=== PATIENT | female | born 1950 | race Caucasian/White ===

== ENCOUNTER 2016-04-21 09:04 | Emergency (ER) | payer MEDICARE, MEDICAID ==
[~2016-04-21] VITALS: Ht 170.2 cm; Wt 99.8 kg
[2016-04-21] MEDS ORDERED: DOXY100C42 PO (10:14)
[2016-04-21] MEDS ORDERED: BENZ-13 PO (10:14)
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
[2016-04-21 10:21] VITALS: BP 150/100
== END 2016-04-21 10:21 | disposition home or self-care (01) ==
LOC: EDBD → EDUNIT# 09:04 → ER 09:10
DX: J40 Bronchitis, not specified as acute or chronic (principal); R42 Dizziness and giddiness; E11.9 Type 2 diabetes mellitus without complications
CPT/HCPCS: 87804; 99282

== ENCOUNTER 2016-05-24 14:12 | Emergency (ER) | payer MEDICARE, MEDICAID ==
[~2016-05-24] VITALS: Ht 172.7 cm; Wt 107.0 kg
[~2016-05-24 14:12] MED LIST: BENZ-13 PO; DOXY100C42 PO
--- OUTSIDE RECORDS SUMMARY | 2016-05-24 14:18 | XMS REPORT | Continuity of Care Document ---
Author Author [facility] Organization [facility] Address Unknown Phone Unavailable Care Team Providers Care Acquisition Editor Name Role Phone NO, LOCAL PHYSICIAN PCP Unavailable Insurance Providers Payer Name Policy Number Subscriber Name Relationship [employer] [id number] Brenda Duran 18 Self / Same As Patient [facility] [employer] [id number] Brenda Duran 18 Self / Same As Patient Advance Directives Directive Response Recorded Date/Time Advance Directives No 04/21/16 9:14am Resuscitation Status Full Code 04/21/16 9:14am Chief Complaint and Reason for Visit Chief Complaint General Problems/Pain Reason for Visit Bronchitis Problems Active Problems Medical Problem Onset Date Status Bronchitis Unknown Acute Medications Current Home Medications Medication Dose Units Route Directions Days/Qty Instructions Start Date Doxycycline Monohydrate 100 Mg 100 Mg Oral Twice A Day 20 04/21/16 Benzonatate 100 Mg 1-2 Tab Oral Three Times A Day for Cough 30 Social History Social History Problem Response Recorded Date/Time Alcohol Use Denies Use 04/21/2016 9:14am Recreational Drug Use No 04/21/2016 9:14am Recent Foreign Travel No 04/21/2016 9:12am Recent Infectious Disease Exposure No 04/21/2016 9:12am Hospitalization with Isolation Denies 04/21/2016 9:12am Smoking Status Never a Smoker 04/21/2016 9:14am Recent Hopitalizations No 04/21/2016 9:15am Hospitalization with Isolation Denies 04/21/2016 9:12am Query Response Start Date Stop Date Smoking Status Never a Smoker Hospital Discharge Instructions No hospital discharge instructions. Plan of Care Discharge Date 04/21/16 10:21am Disposition 01 HOME, SELF-CARE Condition at Discharge Stable Instructions/Education Provided Acute Bronchitis, Adult (DC) Prescriptions See Medication Section Referrals NO,LOCAL PHYSICIAN - Primary Care Physician RITA GUTIERREZ MD - Additional Instructions/Education GET YOUR PRESCRIPTIONS REFILLED AND TAKE THEM TODAY PRESCRIBED ARLENEITUSSIN DM FOR COUGH TYLENOL AND MOTRIN NEEDED FOR PAIN OR FEVER FOLLOW UP WITH DR. GUTIERREZ IN 2-3 DAYS IF NO BETTER All discharge instructions reviewed with patient and/or family. Voiced understanding. Functional Status No functional status results. Allergies, Adverse Reactions, Alerts Allergen Type Severity Reaction Status Last Updated hydrocortisone ([id number]) Allergy Unknown Active 04/21/16 Immunizations No immunization records. Vital Signs Acute Vital Signs Vital Response Date/Time Temperature (Fahrenheit) 97.6 degrees F (97.6 - 99.5) 04/21/2016 9:12am Temperature (Calculated Celsius) 36.31445 degrees C (36.4 - 37.5) 04/21/2016 9:12am Temperature Source Temporal 04/21/2016 9:12am Pulse Rate (adult) 64 bpm (60 - 90) 04/21/2016 10:21am Respiratory Rate 18 bpm (12 - 24) 04/21/2016 10:21am O2 Sat by Pulse Oximetry 97 % (88 - 100) 04/21/2016 10:21am Blood Pressure 150/100 mm Hg 04/21/2016 10:21am Blood Pressure Mean 114 mm Hg 04/21/2016 9:12am Pain Numeric Pain Scale 0-No Pain 04/21/2016 9:12am Height (Feet) 5 feet 04/21/2016 9:12am Height (Inches) 7 inches 04/21/2016 9:12am Height (Calculated Centimeters) 170.632499 cm 04/21/2016 9:12am Weight (Pounds) 220 pounds 04/21/2016 9:12am Weight (Calculated Kilograms) 99.414534 kilograms 04/21/2016 9:12am Capillary Refill Capillary Refill Less Than 3 Seconds 04/21/2016 9:12am Height 5 ft 7 in Weight 220 lb Body Mass Index 34.5 kg/m^2 Results No known relevant diagnostic tests, laboratory data and/or discharge summary. Procedures No known history of procedures. Encounters Encounter Location Arrival/Admit Date Discharge/Depart Date Attending Provider Departed Emergency Room [facility] 04/21/16 9:10am 04/21 10:21am VALDEMAR NAPIER DO Recent Diagnosis
--- NOTE | 2016-05-24 14:25 | ED Chest Pain ---
General Chief Complaint: Chest Wall/Rib Pain Stated Complaint: LEFT RIB/BREAST PAIN Source: patient, family Exam Limitations: no limitations History of Present Illness Time seen by provider: 14:23 Initial Comments To ER with a three-day history of intermittent left sided chest pain. This is to the lateral aspect of her breast at the anterior axillary line. She states this is very tender to touch. Pain comes about with walking. She denies shortness of breath. She also reports an associated nonproductive cough been present for one month. No fevers, no chills, no unintentional weight loss. Pain is not worsened with movement. Primary care is Dr. Ku in [place]. She is diabetic. Timing/Duration: 2-3 days Severity/Quality: sharp Radiation: no radiation Activities at Onset: none ASA po VARNISH COOKER: No NTG SL VARNISH COOKER: No Associated Symptoms: No back pain, No diaphoresis, No dizziness, edemaNo nausea/vomiting, No shortness of breath, No syncope, No weakness Allergies and Home Medications Allergies Coded Allergies: hydrocortisone (Verified Allergy, Unknown, 04/21/16) Home Medications Benzonatate 100 Mg Capsule #30 1-2 TAB PO TID Prescribed by: VALDEMAR NAPIER on 04/21/16 1014 Doxycycline Monohydrate 100 Mg Capsule #20 100 MG PO BID Prescribed by: VALDEMAR NAPIER on 04/21/16 1014 Review of Systems Constitutional: see HPINo chills, No fever, No weakness EENTM: No Symptoms Reported Respiratory: See HPI CoughDenies Shortness of Air, Denies SOA With Exertion, Denies SOA at Rest Cardiovascular: See HPI Chest Pain EdemaDenies Irregular Heart Rate, Denies Lightheadedness, Denies Palpitations, Denies Syncope Gastrointestinal: No Symptoms ReportedDenies Nausea Genitourinary: No Symptoms Reported Musculoskeletal: no symptoms reported Skin: no symptoms reported Psychiatric/Neurological: No Symptoms Reported Past Mcypsck-Hzitcm-Tvtdyb Hx Patient Social History Recent Foreign Travel: No Contact w/Someone Who Travel: No Recent Hopitalizations: No Surgeries HX Surgeries: Yes (HERNIA REPAIR) Surgeries: Abdominal, Tubal Ligation Respiratory Hx Respiratory Disorders: Yes Respiratory Disorders: Pneumonia, Chronic Bronchitis Cardiovascular Hx Cardiac Disorders: Yes Cardiac Disorders: Hypertension Neurological Hx Neurological Disorders: No 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 Genitourinary Hx Genitourinary Disorders: No Gastrointestinal Hx Gastrointestinal Disorders: No Musculoskeletal Hx Musculoskeletal Disorders: Yes Musculoskeletal Disorders: Chronic Back Pain Endocrine Hx Endocrine Disorders: Yes Endocrine Disorders: Diabetes, Non-Insulin dep HEENT HX ENT Disorders: No Cancer Hx Cancer: No Psychosocial Hx Psychiatric Problems: No Integumentary HX Skin/Integumentary Disorder: No Blood Transfusions Hx Blood Disorders: No Physical Exam Vital Signs Vital Sign - Last 12Hours 05/24/16 14:20 Temp 98.0 Pulse 67 Resp 18 B/P 174/95 Pulse Ox 98 O2 Delivery Room Air Capillary Refill : General Appearance: No Apparent Distress WD/WN Chronically ill Obese HEENT: PERRL/EOMI TMs Normal Other (edentulous) Neck: Full Range of Motion Normal Inspection Respiratory: No Accessory Muscle Use No Respiratory Distress Other (left chest wall is tender at around the anterior axillary line to midaxillary line fourth rib. There is no ecchymosis, crepitus and no rash. Palpation of this area does reproduce her pain.) Cardiovascular: Regular Rate, Rhythm Normal Peripheral Pulses Gastrointestinal: Non Tender Soft Extremity: Normal Capillary Refill Normal Inspection Neurologic/Psychiatric: Alert Oriented x3 Skin: Normal Color Warm/Dry Progress/Results/Core Measures Results/Orders Lab Results Laboratory Tests Test 05/24/16 14:41 Range/Units Activated Partial Thromboplast Time 36 H 24-35 SEC Alanine Aminotransferase (ALT/SGPT) 10 0-55 U/L Albumin 4.3 3.2-4.5 G/DL Alkaline Phosphatase 66 40-136 U/L Anion Gap 12 5-14 MMOL/L Aspartate Amino Transf (AST/SGOT) 14 5-34 U/L B-Type Natriuretic Peptide 21.5 <100.0 PG/ML BUN/Creatinine Ratio 18 Basophils # (Auto) 0.0 0.0-0.1 10^3/uL Basophils (%) (Auto) 0 0-10 % Blood Urea Nitrogen 12 7-18 MG/DL Calcium Level 9.1 8.5-10.1 MG/DL Carbon Dioxide Level 22 21-32 MMOL/L Chloride Level 107 98-107 MMOL/L Creatinine 0.67 0.60-1.30 MG/DL Eosinophils # (Auto) 0.1 0.0-0.3 10^3/uL Eosinophils (%) (Auto) 2 0-10 % Estimat Glomerular Filtration Rate > 60 Glucose Level 135 H 70-105 MG/DL Hematocrit 44 35-52 % Hemoglobin 14.5 11.5-16.0 G/DL INR Comment 1.0 0.8-1.4 Lymphocytes # (Auto) 2.0 1.0-4.0 X 10^3 Lymphocytes (%) (Auto) 29 12-44 % Magnesium Level 2.2 1.8-2.4 MG/DL Mean Corpuscular Hemoglobin 28 25-34 PG Mean Corpuscular Hemoglobin Concent 33 32-36 G/DL Mean Corpuscular Volume 84 80-99 FL Mean Platelet Volume 12.0 H 7.4-10.4 FL Monocytes # (Auto) 0.3 0.0-1.0 X 10^3 Monocytes (%) (Auto) 5 0-12 % Myoglobin 35.2 10.0-92.0 NG/ML Neutrophils # (Auto) 4.5 1.8-7.8 X 10^3 Neutrophils (%) (Auto) 65 42-75 % Platelet Count 173 130-400 10^3/uL Potassium Level 3.5 L 3.6-5.0 MMOL/L Prothrombin Time 12.9 12.2-14.7 SEC Red Blood Count 5.19 4.35-5.85 10^6/uL Red Cell Distribution Width 14.0 10.0-14.5 % Sodium Level 141 135-145 MMOL/L Total Bilirubin 0.6 0.1-1.0 MG/DL Total Protein 7.1 6.4-8.2 G/DL Troponin I < 0.30 <0.30 NG/ML White Blood Count 6.9 4.3-11.0 10^3/uL My Orders Orders-HERMINIO SU APRN Cbc With Automated Diff (05/24/16 14:22) Magnesium (05/24/16 14:22) Chest 1 View, Ap/Pa Only (05/24/16 14:22) Ekg Tracing (05/24/16 14:22) Cardiac Profile 1 (05/24/16 14:22) Comprehensive Metabolic Panel (05/24/16 14:22) Myoglobin Serum (05/24/16 14:22) Protime With Inr (05/24/16 14:22) Partial Thromboplastin Time (05/24/16 14:22) O2 (05/24/16 14:22) Monitor-Rhythm Ecg Trace Only (05/24/16 14:22) Lipid Panel (05/25/16 06:00) Saline Lock/Iv-Start (05/24/16 14:22) BNP (05/24/16 14:46) Vital Signs/I&O Vital Sign - Last 12Hours 05/24/16 05/24/16 14:20 15:00 Temp 98.0 Pulse 67 Resp 18 B/P 174/95 Pulse Ox 98 98 O2 Delivery Room Air Room Air ECG Initial ECG Impression Date: May 24, 2016 Initial ECG Impression Time: 15:55 Initial ECG Intervals RBBB Initial ECG Impression: Normal Departure Communication Progress Notes [id number]-patient does not have any unilateral leg swelling, no shortness of breath, no hypoxia with her oxygen saturation being 98 percent on room air, she is not tachycardic despite no use of rate controlling drugs. I will discharge her to home treating for chest wall pain with cardiology follow-up. Dr. Dolan agrees. I have made an appointment for the patient with Dr. Grayson this 05/26/16 [address] Grayson. Impression Impression: Primary Impression: Chest wall pain Disposition: HOME, SELF-CARE Condition: Stable Departure-Patient Inst. Decision time for Depature: 15:42 Referrals: LASHELL GRAYSON [facility] Patient Instructions: Chest Pain (DC) Add. Discharge Instructions: 1. I have listed the local business systems advisor for you. I have made an appointment for you to see Dr. Grayson this May 26 at 1110 a.m. 2. Return to ER for any recurrent or worsening chest pain. All discharge instructions reviewed with patient and/or family. Voiced understanding. Copy Copies To 1: [facility] HERMINIO SU APRN May 24, 2016 14:25
[2016-05-24 14:57] LABS: BASOPHILS % (AUTO) 0 % (0-10); EOSINOPHILS # (AUTO) 0.1 10^3/uL (0.0-0.3); EOSINOPHILS % (AUTO) 2 % (0-10); LYMPHOCYTES % (AUTO) 29 % (12-44); MEAN CORPUSCULAR HEMOGLOBIN 28 PG (25-34); MEAN CORPUSCULAR HGB CONC 33 G/DL (32-36); MEAN CORPUSCULAR VOLUME 84 FL (80-99); MONOCYTES # (AUTO) 0.3 X 10^3 (0.0-1.0); MONOCYTES % (AUTO) 5 % (0-12); NEUTROPHILS # (AUTO) 4.5 X 10^3 (1.8-7.8); NEUTROPHILS % (AUTO) 65 % (42-75); PLATELET COUNT 173 10^3/uL (130-400); RED BLOOD COUNT 5.19 10^6/uL (4.35-5.85); WHITE BLOOD COUNT 6.9 10^3/uL (4.3-11.0)
[2016-05-24 15:08] LABS: PROTHROMBIN TIME PATIENT 12.9 SEC (12.2-14.7)
--- NOTE | 2016-05-24 15:12 | Diagnostic Imaging Report ---
Portable upright radiograph of the chest. INDICATION: Left breast and rib pain. FINDINGS: The lungs are clear. The heart size is at the upper limits of normal. No effusion or pneumothorax. The mediastinum and storm appear unremarkable. IMPRESSION: No acute process. Dictated by: Dictated on workstation # [id number]
[2016-05-24 15:16] LABS: ALANINE AMINOTRANSFERASE 10 U/L (0-55); ALBUMIN 4.3 G/DL (3.2-4.5); ANION GAP 12 MMOL/L (5-14); ASPARTATE AMINO TRANSFERASE 14 U/L (5-34); BILIRUBIN,TOTAL 0.6 MG/DL (0.1-1.0); BLOOD UREA NITROGEN 12 MG/DL (7-18); BUN/CREATININE RATIO 18; CALCIUM 9.1 MG/DL (8.5-10.1); CARBON DIOXIDE 22 MMOL/L (21-32); CHLORIDE 107 MMOL/L (98-107); CREATININE SERUM 0.67 MG/DL (0.60-1.30); GFR ESTIMATED > 60; GLUCOSE 135 MG/DL (70-105); MAGNESIUM 2.2 MG/DL (1.8-2.4); POTASSIUM 3.5 MMOL/L (3.6-5.0); SODIUM 141 MMOL/L (135-145); TOTAL PROTEIN 7.1 G/DL (6.4-8.2)
[2016-05-24 15:23] LABS: MYOGLOBIN SERUM 35.2 NG/ML (10.0-92.0)
[2016-05-24 16:05] VITALS: BP 168/94
== END 2016-05-24 16:06 | disposition home or self-care (01) ==
LOC: EDUNIT# 14:12 → ER 14:14 → EDBD 14:14 → ER 16:06
DX: R07.89 Other chest pain (principal); I10 Essential (primary) hypertension; E11.9 Type 2 diabetes mellitus without complications
CPT/HCPCS: 36415; 71010; 80053; 83735; 83874; 83880; 84484; 85025; 85610; 85730; 93005; 93041

== ENCOUNTER → 2016-06-08 | Outpatient (CLI) | payer MEDICARE, MEDICAID ==
--- OUTSIDE RECORDS SUMMARY | 2016-06-08 16:24 | XMS REPORT | Continuity of Care Document ---
Author Author [facility] Organization [facility] Address Unknown Phone Unavailable Care Team Providers Care Curriculum Assistant Name Role Phone NO, LOCAL PHYSICIAN PCP Unavailable Insurance Providers Payer Name Policy Number Subscriber Name Relationship [employer] [id number] Brenda Duran 18 Self / Same As Patient [facility] Amerigrp [id number] Brenda Duran 18 Self / Same As Patient Advance Directives Directive Response Recorded Date/Time Advance Directives No 05/24/16 2:25pm Organ Donor No 05/24/16 2:25pm Resuscitation Status Full Code 05/24/16 2:25pm Chief Complaint and Reason for Visit Chief Complaint Chest Wall/Rib Pain Reason for Visit Chest wall pain Problems Active Problems Medical Problem Onset Date Status Bronchitis Unknown Acute Chest wall pain Unknown Acute Medications Current Home Medications Medication Dose Units Route Directions Days/Qty Instructions Start Date Doxycycline Monohydrate 100 Mg 100 Mg Oral Twice A Day 20 04/21/16 Benzonatate 100 Mg 1-2 Tab Oral Three Times A Day for Cough 30 Social History Social History Problem Response Recorded Date/Time Alcohol Use Denies Use 05/24/2016 2:25pm Recreational Drug Use No 05/24/2016 2:25pm Recent Foreign Travel No 05/24/2016 2:20pm Recent Infectious Disease Exposure No 05/24/2016 2:20pm Hospitalization with Isolation Denies 05/24/2016 2:20pm Smoking Status Never a Smoker 05/24/2016 2:25pm Recent Hopitalizations No 05/24/2016 2:25pm Hospitalization with Isolation Denies 05/24/2016 2:20pm Query Response Start Date Stop Date Smoking Status Never a Smoker Hospital Discharge Instructions No hospital discharge instructions. Plan of Care Discharge Date 05/24/16 4:06pm Disposition 01 HOME, SELF-CARE Condition at Discharge Stable Instructions/Education Provided Chest Pain (DC) Prescriptions See Medication Section Referrals LASHELL GRAYSON MD FACP FACC CCDS - Additional Instructions/Education 1. I have listed the local rn telephonic for you. I have made an appointment for you to see Dr. Grayson this May 26 at 1110 a.m. 2. Return to ER for any recurrent or worsening chest pain. All discharge instructions reviewed with patient and/or family. Voiced understanding. Functional Status No functional status results. Allergies, Adverse Reactions, Alerts Allergen Type Severity Reaction Status Last Updated hydrocortisone ([id number]) Allergy Unknown Active 04/21/16 Immunizations No immunization records. Vital Signs Acute Vital Signs Vital Response Date/Time Temperature (Fahrenheit) 98 degrees F (97.6 - 99.5) 05/24/2016 2:20pm Temperature (Calculated Celsius) 36.6696 degrees C (36.4 - 37.5) 05/24/2016 2 :20pm Temperature Source Temporal 05/24/2016 2:20pm Pulse Rate (adult) 65 bpm (60 - 90) 05/24/2016 4:05pm Respiratory Rate 18 bpm (12 - 24) 05/24/2016 4:05pm O2 Sat by Pulse Oximetry 94 % (88 - 100) 05/24/2016 4:05pm Blood Pressure 168/94 mm Hg 05/24/2016 4:05pm Blood Pressure Mean 121 mm Hg 05/24/2016 2:20pm Pain Numeric Pain Scale 4 05/24/2016 2:20pm Height (Feet) 5 feet 05/24/2016 2:20pm Height (Inches) 8 inches 05/24/2016 2:20pm Height (Calculated Centimeters) 172.866204 cm 05/24/2016 2:20pm Weight (Pounds) 236 pounds 05/24/2016 2:20pm Weight (Calculated Kilograms) 107.205402 kilograms 05/24/2016 2:20pm Capillary Refill Capillary Refill Less Than 3 Seconds 05/24/2016 2:20pm Height 5 ft 8 in Weight 236 lb Body Mass Index 35.9 kg/m^2 Results Laboratory Results Test Name Result Units Flags Reference Collection Date/Time Result Date/ Time Comments White Blood Count 6.9 10^3/uL 4.3-11.0 05/24/2016 2:41pm 05/24/2016 3: 00pm Red Blood Count 5.19 10^6/uL 4.35-5.85 05/24/2016 2:41pm 05/24/2016 3: 00pm Hemoglobin 14.5 G/DL 11.5-16.0 05/24/2016 2:41pm 05/24/2016 3:00pm Hematocrit 44 % 35-52 05/24/2016 2:41pm 05/24/2016 3:00pm Mean Corpuscular Volume 84 FL 80-99 05/24/2016 2:41pm 05/24/2016 3: 00pm Mean Corpuscular Hemoglobin 28 PG 25-34 05/24/2016 2:41pm 05/24/2016 3: 00pm Mean Corpuscular Hemoglobin Concent 33 G/DL 32-36 05/24/2016 2:41pm 3:00pm Red Cell Distribution Width 14.0 % 10.0-14.5 05/24/2016 2:41pm 2016 3:00pm Platelet Count 173 10^3/uL 130-400 05/24/2016 2:41pm 05/24/2016 3:00pm Mean Platelet Volume 12.0 FL H 7.4-10.4 05/24/2016 2:41pm 05/24/2016 3: 00pm Neutrophils (%) (Auto) 65 % 42-75 05/24/2016 2:41pm 05/24/2016 3:00pm Lymphocytes (%) (Auto) 29 % 12-44 05/24/2016 2:41pm 05/24/2016 3:00pm Monocytes (%) (Auto) 5 % 0-12 05/24/2016 2:41pm 05/24/2016 3:00pm Eosinophils (%) (Auto) 2 % 0-10 05/24/2016 2:41pm 05/24/2016 3:00pm Basophils (%) (Auto) 0 % 0-10 05/24/2016 2:4105/24/2016 3:00pm Neutrophils # (Auto) 4.5 X 10^3 1.8-7.8 05/24/2016 2:41pm 05/24/2016 3: 00pm Lymphocytes # (Auto) 2.0 X 10^3 1.0-4.0 05/24/2016 2:41pm 05/24/2016 3: 00pm Monocytes # (Auto) 0.3 X 10^3 0.0-1.0 05/24/2016 2:4105/24/2016 3: 00pm Eosinophils # (Auto) 0.1 10^3/uL 0.0-0.3 05/24/2016 2:41pm 05/24/2016 3 :00pm Basophils # (Auto) 0.0 10^3/uL 0.0-0.1 05/24/2016 2:41pm 05/24/2016 3: 00pm Prothrombin Time 12.9 SEC 12.2-14.7 05/24/2016 2:pm 05/24/2016 3: 10pm INR Comment 1.0 0.8-1.4 05/24/2016 2:4105/24/2016 3:10pm INTERPRETIVE DATA SUGGESTED THERAPEUTIC RANGE FOR INR'S: VENOUS THROMBOSIS, PULMONARY EMBOLISM, OR PREVENTION OF SYSTEMIC EMBOLISM (EG. IN ATRIAL FIBRILLATION): 2.0 - 3.0 MECHANICAL PROSTHETIC HEART VALVES: 2.5 - 3.5* *NOTE: INR'S UP TO 4.5 MAY BE NECESSARY IN SELECTED GROUPS OF HIGH RISK PATIENTS. [employer] CONSENSUS CONFERENCE ON ANTITHROMBOTIC THERAPY (2000). Activated Partial Thromboplast Time 36 SEC H 24-35 05/24/2016 2: 3:10pm Sodium Level 141 MMOL/L 135-145 05/24/2016 2:05/24/2016 3:20pm Potassium Level 3.5 MMOL/L L 3.6-5.0 05/24/2016 2:41pm 05/24/2016 3:20pm Chloride Level 107 MMOL/L 98-107 05/24/2016 2:41pm 05/24/2016 3:20pm Carbon Dioxide Level 22 MMOL/L 21-32 05/24/2016 2:41pm 05/24/2016 3: 20pm Anion Gap 12 MMOL/L 5-14 05/24/2016 2:41pm 05/24/2016 3:20pm Blood Urea Nitrogen 12 MG/DL 7-18 05/24/2016 2:4105/24/2016 3:20pm Creatinine 0.67 MG/DL 0.60-1.30 05/24/2016 2:41pm 05/24/2016 3:20pm BUN/Creatinine Ratio 18 05/24/2016 2:41pm 05/24/2016 3:20pm Estimat Glomerular Filtration Rate > 60 05/24/2016 2:2016 3:20pm GFR INTERPRETIVE DATA UNITS FOR ESTIMATED GFR (eGFR): mL/min/1.73 M2 REFERENCE RANGE FOR ESTIMATED GFR (eGFR) eGFR NORMAL eGFR >60 MODERATELY DECREASED eGFR 30-59 SEVERLY DECREASED eGFR 15-29 KIDNEY FAILURE <15 (OR DIALYSIS) Glucose Level 135 MG/DL H 70-105 05/24/2016 2:41pm 05/24/2016 3:20pm Calcium Level 9.1 MG/DL 8.5-10.1 05/24/2016 2:05/24/2016 3:20pm Magnesium Level 2.2 MG/DL 1.8-2.4 05/24/2016 2:05/24/2016 3:20pm Total Bilirubin 0.6 MG/DL 0.1-1.0 05/24/2016 2:05/24/2016 3:20pm Alkaline Phosphatase 66 U/L 40-136 05/24/2016 2:05/24/2016 3:20pm Aspartate Amino Transf (AST/SGOT) 14 U/L 5-34 05/24/2016 2:2016 3:20pm Alanine Aminotransferase (ALT/SGPT) 10 U/L 0-55 05/24/2016 2:05/24 3:20pm Troponin I < 0.30 NG/ML <0.30 05/24/2016 2:05/24/2016 3:24pm Myoglobin 35.2 NG/ML 10.0-92.0 05/24/2016 2:41pm 05/24/2016 3:24pm B-Type Natriuretic Peptide 21.5 PG/ML <100.0 05/24/2016 2:412016 3:39pm Total Protein 7.1 G/DL 6.4-8.2 05/24/2016 2:41pm 05/24/2016 3:20pm Albumin 4.3 G/DL 3.2-4.5 05/24/2016 2:41pm 05/24/2016 3:20pm Procedures Procedure Status Date Provider(s) Tracing only of electrocardiogram Active 05/24/16 HERMINIO SU APRN Encounters Encounter Location Arrival/Admit Date Discharge/Depart Date Attending Provider Departed Emergency Room [facility] 05/24/16 2:14pm 05/24 4:06pm HERMINIO SU APRN Recent Diagnosis
--- NOTE | 2016-06-08 19:10 | Diagnostic Imaging Report ---
INDICATION: Status post fall with left rib pain. AP and oblique views of the left ribs are obtained. FINDINGS: There is no underlying pneumothorax or pleural fluid. IMPRESSION: Negative left ribs. Dictated by: Dictated on workstation # [id number]
== END ==
LOC: RAD 16:20
PROVIDERS: ATTEND Nurse Practitioner Family
DX: R07.81 Pleurodynia (principal)
CPT/HCPCS: 71100

== ENCOUNTER 2016-09-10 22:32 | Emergency (ER) | payer MEDICARE, MEDICAID ==
[~2016-09-10] VITALS: Ht 172.7 cm; Wt 110.7 kg
[2016-09-11 00:03] VITALS: BP 0/0
== END 2016-09-11 00:02 | disposition left against medical advice (07) ==
LOC: EDUNIT# 22:32 → ER 22:35
DX: N64.4 Mastodynia (principal); Z53.21 Procedure and treatment not carried out due to patient leaving prior to being seen by health care provider
CPT/HCPCS: 99281

== ENCOUNTER 2016-10-15 20:01 | Emergency (ER) | payer MEDICARE, MEDICAID ==
[~2016-10-15] VITALS: Ht 172.7 cm; Wt 110.7 kg
[2016-10-15] MEDS ORDERED: IBUP-15 PO (20:13)
[2016-10-15] MEDS ORDERED: LOSA50TA36 PO (20:13)
[2016-10-15] MEDS ORDERED: amLODIPine 5 MG (NORVASC) TAB PO ONE (20:45)
--- NOTE | 2016-10-15 20:46 | ED Chest Pain ---
General Chief Complaint: Chest Wall/Rib Pain Stated Complaint: BILAT ARM PAIN Nursing Triage Note: Patient reports L sided pain, patient reports pain has been present for over a month and came here previously but couldn't stay long Nursing Sepsis Screen: No Definite Risk Source: patient Exam Limitations: no limitations History of Present Illness Time seen by provider: 20:45 Initial Comments Left-sided chest wall pain present for one month. She's had x-rays done. She was told the x-rays were normal. She reports that the left lateral chest wall below the axilla has been swelling off and on for a month. She's never noticed any rash. Very tender to touch. No cough or shortness of breath. No injury. Timing/Duration: 1-3 hours, other (1 month) Severity/Quality: moderate Radiation: no radiation Allergies and Home Medications Allergies Coded Allergies: hydrocortisone (Verified Allergy, Unknown, 04/21/16) ether (Verified Adverse Reaction, Unknown, 09/10/16) Home Medications Ibuprofen 200 Mg Tablet, 800 MG PO, (Reported) Losartan Potassium 50 Mg Tablet, 50 MG PO DAILY, (Reported) Review of Systems Constitutional: see HPI EENTM: No Symptoms Reported Respiratory: No Symptoms Reported Cardiovascular: No Symptoms Reported Gastrointestinal: See HPI Genitourinary: No Symptoms Reported Musculoskeletal: no symptoms reported Skin: no symptoms reported Psychiatric/Neurological: No Symptoms Reported Endocrine: No Symptoms Reported Past Yaepvsc-Xzlobz-Pwfbvt Hx Patient Social History Alcohol Use: Denies Use Recreational Drug Use: No Smoking Status: Current Everyday Smoker Recent Foreign Travel: No Contact w/Someone Who Travel: No Recent Infectious Disease Expo: No Recent Hopitalizations: No Seasonal Allergies Seasonal Allergies: No Surgeries HX Surgeries: Yes (HERNIA REPAIR) Surgeries: Abdominal, Tubal Ligation Respiratory Hx Respiratory Disorders: Yes Respiratory Disorders: Pneumonia, Chronic Bronchitis Cardiovascular Hx Cardiac Disorders: Yes Cardiac Disorders: Hypertension Neurological Hx Neurological Disorders: No 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 System Hx 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 Disorders: 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 Genitourinary Hx Genitourinary Disorders: Yes Genitourinary Disorders: Kidney Infection, UTI-Chronic Gastrointestinal Hx Gastrointestinal Disorders: Yes Gastrointestinal Disorders: Chronic Constipation Musculoskeletal Hx Musculoskeletal Disorders: Yes (FLOATING DISK, OSTEOPOROSIS, BONES DETERIOATING ) Musculoskeletal Disorders: Chronic Back Pain Endocrine Hx Endocrine Disorders: Yes Endocrine Disorders: Diabetes, Non-Insulin dep HEENT HX ENT Disorders: No Cancer Hx Cancer: No Psychosocial Hx Psychiatric Problems: No Integumentary HX Skin/Integumentary Disorder: No Blood Transfusions Hx Blood Disorders: No Family Medical History Family Medial History: Cardiovascular disease 19 FATHER Diabetes mellitus 19 MOTHER G8 BROTHER FH: cancer 19 MOTHER Hypertension 19 MOTHER 19 FATHER G8 BROTHER Physical Exam Vital Signs Vital Sign - Last 12Hours 10/15/16 20:09 Temp 98.5 Pulse 82 Resp 18 B/P (MAP) 215/112 Pulse Ox 94 Capillary Refill : Less Than 3 Seconds General Appearance: No Apparent Distress, WD/WN HEENT: PERRL/EOMI, TMs Normal Neck: Full Range of Motion, Normal Inspection Respiratory: No Accessory Muscle Use, No Respiratory Distress Gastrointestinal: Non Tender, Soft Extremity: Normal Capillary Refill, Normal Inspection Neurologic/Psychiatric: Alert, Oriented x3 Skin: Normal Color, Warm/Dry Progress/Results/Core Measures Results/Orders Lab Results Laboratory Tests Test 10/15/16 20:41 Range/Units White Blood Count 8.4 4.3-11.0 10^3/uL Red Blood Count 5.07 4.35-5.85 10^6/uL Hemoglobin 14.1 11.5-16.0 G/DL Hematocrit 43 35-52 % Mean Corpuscular Volume 86 80-99 FL Mean Corpuscular Hemoglobin 28 25-34 PG Mean Corpuscular Hemoglobin Concent 33 32-36 G/DL Red Cell Distribution Width 14.3 10.0-14.5 % Platelet Count 189 130-400 10^3/uL Mean Platelet Volume 12.1 H 7.4-10.4 FL Neutrophils (%) (Auto) 66 42-75 % Lymphocytes (%) (Auto) 26 12-44 % Monocytes (%) (Auto) 6 0-12 % Eosinophils (%) (Auto) 2 0-10 % Basophils (%) (Auto) 0 0-10 % Neutrophils # (Auto) 5.6 1.8-7.8 X 10^3 Lymphocytes # (Auto) 2.2 1.0-4.0 X 10^3 Monocytes # (Auto) 0.5 0.0-1.0 X 10^3 Eosinophils # (Auto) 0.1 0.0-0.3 10^3/uL Basophils # (Auto) 0.0 0.0-0.1 10^3/uL Sodium Level 142 135-145 MMOL/L Potassium Level 3.8 3.6-5.0 MMOL/L Chloride Level 109 H 98-107 MMOL/L Carbon Dioxide Level 18 L 21-32 MMOL/L Anion Gap 15 H 5-14 MMOL/L Blood Urea Nitrogen 17 7-18 MG/DL Creatinine 0.67 0.60-1.30 MG/DL Estimat Glomerular Filtration Rate > 60 BUN/Creatinine Ratio 25 Glucose Level 116 H 70-105 MG/DL Calcium Level 8.8 8.5-10.1 MG/DL Total Bilirubin 0.5 0.1-1.0 MG/DL Aspartate Amino Transf (AST/SGOT) 16 5-34 U/L Alanine Aminotransferase (ALT/SGPT) 18 0-55 U/L Alkaline Phosphatase 79 40-136 U/L Total Protein 7.3 6.4-8.2 GM/DL Albumin 4.2 3.2-4.5 GM/DL My Orders Orders - 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 Cbc With Automated Diff (10/15/16 20:44) Comprehensive Metabolic Panel (10/15/16 20:44) Ct Chest W (10/15/16 20:44) Saline Lock/Iv-Start (10/15/16 20:44) Amlodipine Tablet (Norvasc Tablet) (10/15/16 20:45) Iohexol Injection (Omnipaque 350 Mg/Ml 1 (10/15/16 22:00) Ns (Ivpb) (Sodium Chloride 0.9% Ivpb Bag (10/15/16 22:00) Ns Iv 500 Ml (Sodium Chloride 0.9%) (10/15/16 22:00) Ketorolac Injection (Toradol Injection) (10/15/16 22:00) Medications Given in ED Current Medications Medications Dose Ordered Sig/Omid Route Start Time Stop Time Status Last Admin Dose Admin Amlodipine Besylate 5 mg ONCE ONCE PO 10/15/16 20:45 10/15/16 20:46 DC 10/15/16 21:09 5 MG Iohexol 100 ml ONCE ONCE IV 10/15/16 22:00 10/15/16 22:01 DC 10/15/16 21:48 75 ML Ketorolac Tromethamine 30 mg ONCE ONCE IVP 10/15/16 22:00 10/15/16 22:01 DC 10/15/16 21:58 30 MG Sodium Chloride 100 ml ONCE ONCE IV 10/15/16 22:00 10/15/16 22:01 DC 10/15/16 21:48 80 ML Vital Signs/I&O Vital Sign - Last 12Hours 10/15/16 20:09 Temp 98.5 Pulse 82 Resp 18 B/P (MAP) 215/112 Pulse Ox 94 Blood Pressure Mean: 146 Diagnostic Imaging Diagonstic Imaging: CT Comments NAME: HENNA LEE [facility] REC#: [id number] PT STATUS: REG ER : 1950 PHYSICIAN: HERMINIO SU APRN ADMIT DATE: 10/15/16/ER Draft Date of Exam:10/15/16 CT CHEST W PROCEDURE: CT chest with contrast only. TECHNIQUE: Multiple contiguous axial images were obtained through the chest after administration of intravenous contrast. INDICATION: Left-sided chest pain. COMPARISON: Rib radiographs from 06/08/2016. FINDINGS: The lungs are clear. Moderate degenerative changes in the thoracic spine. No fractures. No pleural or pericardial effusion. No mediastinal, hilar or axillary lymphadenopathy. The pulmonary arteries and thoracic aorta are unremarkable on this nondedicated exam. Partially visualized postoperative changes of an anterior abdominal wall hernia repair. The visualized upper abdominal contents are otherwise unremarkable. IMPRESSION: No acute CT findings in the chest. Dictated on workstation # [id number] Dict: 10/15/162150 Trans: 10/15/162201 [facility] [id number] Interpreted by: HUSEYIN CERDA MD Electronically signed by: Departure Impression Impression: Primary Impression: Chest wall pain Disposition: 01 HOME, SELF-CARE Condition: Stable Departure-Patient Inst. Decision time for Depature: 22:04 Referrals: RITA GUTIERREZ MD (PCP/Family) Primary Care Physician Patient Instructions: NO INSTRUCTIONS GIVEN Add. Discharge Instructions: 1. Return to ER for concerns 2. A list of local physicians has been provided for you if you would like to establish care locally. All discharge instructions reviewed with patient and/or family. Voiced understanding. HERMINIO SU APRN Oct 15, 2016 20:46
[2016-10-15 20:50] LABS: BASOPHILS % (AUTO) 0 % (0-10); EOSINOPHILS # (AUTO) 0.1 10^3/uL (0.0-0.3); EOSINOPHILS % (AUTO) 2 % (0-10); LYMPHOCYTES # (AUTO) 2.2 X 10^3 (1.0-4.0); LYMPHOCYTES % (AUTO) 26 % (12-44); MEAN CORPUSCULAR HEMOGLOBIN 28 PG (25-34); MEAN CORPUSCULAR HGB CONC 33 G/DL (32-36); MEAN CORPUSCULAR VOLUME 86 FL (80-99); MEAN PLATELET VOLUME 12.1 FL (7.4-10.4); MONOCYTES # (AUTO) 0.5 X 10^3 (0.0-1.0); MONOCYTES % (AUTO) 6 % (0-12); NEUTROPHILS # (AUTO) 5.6 X 10^3 (1.8-7.8); NEUTROPHILS % (AUTO) 66 % (42-75); PLATELET COUNT 189 10^3/uL (130-400); RED BLOOD COUNT 5.07 10^6/uL (4.35-5.85); RED CELL DISTRIBUTION WIDTH 14.3 % (10.0-14.5); WHITE BLOOD COUNT 8.4 10^3/uL (4.3-11.0)
[2016-10-15 21:08] LABS: ALANINE AMINOTRANSFERASE 18 U/L (0-55); ALBUMIN 4.2 GM/DL (3.2-4.5); ANION GAP 15 MMOL/L (5-14); ASPARTATE AMINO TRANSFERASE 16 U/L (5-34); BILIRUBIN,TOTAL 0.5 MG/DL (0.1-1.0); BLOOD UREA NITROGEN 17 MG/DL (7-18); BUN/CREATININE RATIO 25; CALCIUM 8.8 MG/DL (8.5-10.1); CARBON DIOXIDE 18 MMOL/L (21-32); CHLORIDE 109 MMOL/L (98-107); CREATININE SERUM 0.67 MG/DL (0.60-1.30); GFR ESTIMATED > 60; GLUCOSE 116 MG/DL (70-105); POTASSIUM 3.8 MMOL/L (3.6-5.0); SODIUM 142 MMOL/L (135-145); TOTAL PROTEIN 7.3 GM/DL (6.4-8.2)
[2016-10-15] MEDS ORDERED: NS 100 ML (IVPB) BAG IV ONE (22:00)
[2016-10-15] MEDS ORDERED: KETOROLAC 30 MG/ML VIAL IVP ONE (22:00)
[2016-10-15] MEDS ORDERED: IOHEXOL 350 MG/ML 100 ML (OMNIPAQUE 350) VIAL IV ONE (22:00)
[2016-10-15] MEDS ORDERED: NS IV 500 ML 500 ML IV SCH (22:00)
--- NOTE | 2016-10-15 22:02 | Diagnostic Imaging Report ---
PROCEDURE: CT chest with contrast only. TECHNIQUE: Multiple contiguous axial images were obtained through the chest after administration of intravenous contrast. INDICATION: Left-sided chest pain. COMPARISON: Rib radiographs from 06/08/2016. FINDINGS: The lungs are clear. Moderate degenerative changes in the thoracic spine. No fractures. No pleural or pericardial effusion. No mediastinal, hilar or axillary lymphadenopathy. The pulmonary arteries and thoracic aorta are unremarkable on this nondedicated exam. Partially visualized postoperative changes of an anterior abdominal wall hernia repair. The visualized upper abdominal contents are otherwise unremarkable. IMPRESSION: No acute CT findings in the chest. Dictated by: Dictated on workstation # [id number]
[2016-10-15 22:18] VITALS: BP 179/95
== END 2016-10-15 22:18 | disposition home or self-care (01) ==
LOC: EDUNIT# 20:01 → ER 20:04
DX: R07.89 Other chest pain (principal); I10 Essential (primary) hypertension; E11.9 Type 2 diabetes mellitus without complications; J42 Unspecified chronic bronchitis; F17.200 Nicotine dependence, unspecified, uncomplicated; Z82.49 Family history of ischemic heart disease and other diseases of the circulatory system; Z98.51 Tubal ligation status
CPT/HCPCS: 36415; 71260; 80053; 85025; 93005; 96374

== ENCOUNTER 2017-04-25 15:50 | Emergency (ER) | payer MEDICARE, MEDICAID ==
[~2017-04-25] VITALS: Ht 167.6 cm; Wt 113.4 kg
[~2017-04-25 15:50] MED LIST changes: +IBUP-16 PO; +LOSA50TA36 PO
[2017-04-25] MEDS ORDERED: HYDR25CA PO (16:37)
--- NOTE | 2017-04-25 16:37 | ED Integumentary General ---
General Chief Complaint: Skin/Wound Problems Stated Complaint: ITCHY RED BUMPS ON ARMS Source: patient Exam Limitations: no limitations History of Present Illness Date Seen by Provider: Apr 25, 2017 Time Seen by Provider: 16:34 Initial Comments To ER that she red bumps on her arms neck and face. This began 2 days ago after spending 2 nights that her gyfudq-ua-dwj's house sleeping in her alyvqc-ly-baj' s recliner. Patient states that her went over to help clean up his sister's house and noticed there to be Meis, cockroaches and various other insects about the house and states that the carpet smelled like urine. Despite this she stayed overnight 2 nights and then had bumps all over her upon awakening. She is on triamcinolone cream, Medrol Dosepak and denies improvement. She was also given permethrin which she applied states that it burned and then the rash got worse. Timing/Duration: constant Severity: moderate Allergies and Home Medications Allergies Coded Allergies: hydrocortisone (Verified Allergy, Unknown, 04/21/16) ether (Verified Adverse Reaction, Unknown, 09/10/16) Home Medications Ibuprofen 200 Mg Tablet, 800 MG PO, (Reported) Losartan Potassium 50 Mg Tablet, 50 MG PO DAILY, (Reported) Constitutional: see HPI EENTM: see HPI Respiratory: no symptoms reported Cardiovascular: no symptoms reported Genitourinary: no symptoms reported Musculoskeletal: no symptoms reported Skin: see HPI Psychiatric/Neurological: No Symptoms Reported Endocrine: No Symptoms Reported Past Fdedveu-Mcsooe-Vtxixj Hx Patient Social History Recent Hopitalizations: No Seasonal Allergies Seasonal Allergies: No Surgeries History of Surgeries: Yes (HERNIA REPAIR) Surgeries: Abdominal, Tubal Ligation Respiratory History of Respiratory Disorde: Yes Respiratory Disorders: Pneumonia, Chronic Bronchitis Currently Using CPAP: No Currently Using BIPAP: No Cardiovascular History of Cardiac Disorders: Yes Cardiac Disorders: Hypertension Neurological History of Neurological Disord: No 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 System Hx 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 Disorders: 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 Genitourinary Genitourinary Disorders: Kidney Infection, UTI-Chronic Gastrointestinal History of Gastrointestinal Di: Yes Gastrointestinal Disorders: Chronic Constipation Musculoskeletal History of Musculoskeletal Dis: Yes (FLOATING DISK, OSTEOPOROSIS, BONES DETERIOATING ) Musculoskeletal Disorders: Chronic Back Pain Endocrine History of Endocrine Disorders: Yes Endocrine Disorders: Diabetes, Non-Insulin dep HEENT History of HEENT Disorders: No Cancer History of Cancer: No Psychosocial History of Psychiatric Problem: No Integumentary History of Skin or Integumenta: No Blood Transfusions History of Blood Disorders: No Family Medical History Family Medial History: Cardiovascular disease 19 FATHER Diabetes mellitus 19 MOTHER G8 BROTHER FH: cancer 19 MOTHER Hypertension 19 MOTHER 19 FATHER G8 BROTHER Physical Exam Vital Signs Capillary Refill : General Appearance: WD/WN, no apparent distress HEENT: PERRL/EOMI, normal ENT inspection Neck: non-tender, full range of motion Respiratory: no respiratory distress, no accessory muscle use Gastrointestinal: normal bowel sounds, non tender Neurologic/Psychiatric: alert, normal mood/affect, oriented x 3 Skin: rash (diffuse rash to the back of the upper arms, around the hands, on the face and the neck.) Departure Communication (Admissions) Progress Notes I discussed with the patient that I suspect this might be bedbugs but I cannot confirm that. Impression Impression: Primary Impression: Rash Disposition: 01 HOME, SELF-CARE Condition: Stable Departure-Patient Inst. Decision time for Depature: 16:36 Referrals: SELFKALA MD (PCP/Family) Primary Care Physician Patient Instructions: Skin Rash Add. Discharge Instructions: 1. Return to ER for any concerns 2. Continue with current medications 3. All discharge instructions reviewed with patient and/or family. Voiced understanding. Scripts Hydroxyzine Pamoate (Vistaril) 25 Mg Capsule 25 MG PO Q6H Y for ITCHING, #20 CAP Prov: HERMINIO SU APRN 04/25/17 HERMINIO SU APRN Apr 25, 2017 16:37
[2017-04-25 16:45] VITALS: BP 190/95
[2017-04-25] MEDS ORDERED: hydrOXYzine (VISTARIL) 25 MG CAP PO ONE (16:45)
== END 2017-04-25 16:45 | disposition home or self-care (01) ==
LOC: EDUNIT# 15:50 → ER 15:52
DX: R21 Rash and other nonspecific skin eruption (principal); I10 Essential (primary) hypertension; E11.9 Type 2 diabetes mellitus without complications; M81.0 Age-related osteoporosis without current pathological fracture; Z82.49 Family history of ischemic heart disease and other diseases of the circulatory system; Z87.440 Personal history of urinary (tract) infections; Z88.8 Allergy status to other drugs, medicaments and biological substances; Z88.4 Allergy status to anesthetic agent; Z98.51 Tubal ligation status; Z87.19 Personal history of other diseases of the digestive system; Z87.01 Personal history of pneumonia (recurrent)
CPT/HCPCS: 99282

== ENCOUNTER 2017-09-16 14:23 | Emergency (ER) | payer MEDICARE, MEDICAID ==
[~2017-09-16] VITALS: Ht 165.1 cm; Wt 106.6 kg
[~2017-09-16 14:23] MED LIST changes: +HYDR25CA PO
--- OUTSIDE RECORDS SUMMARY | 2017-09-16 14:28 | XMS REPORT ---
Author Author STONEY DIANA Organization [facility] Address [address] [place] [address] Care Team Providers Care City Letter Carrier Name Role Phone STONEY DIANA Unavailable PROBLEMS Type Condition ICD9-CM Code [id number] Code Onset Dates Condition Status SNOMED Code Problem Asthma J45.909 Active 271511556 Problem Prediabetes R73.09 Active 7651071 Problem GERD (gastroesophageal reflux disease) K21.9 Active 013280911 Problem Arthritis M19.90 Active 2296236 ALLERGIES Substance Reaction Event Type Date Status HYDROcodone Bitartrate ER hives Drug Allergy Aug, Active ENCOUNTERS Encounter Location Date Diagnosis [facility] [address] [phone] Aug, Acute middle ear effusion, right H65.191 and Bilateral lower extremity edema R60.0 [facility] [address] [phone] Nov, Conjunctivitis of left eye, unspecified conjunctivitis type H10.9 [facility] [address] [phone] Mar, Arthritis M19.90 ; GERD (gastroesophageal reflux disease) K21.9 ; Prediabetes R73.09 ; Weight gain R63.5 and Asthma J45.909 IMMUNIZATIONS No Known Immunizations SOCIAL HISTORY Never Assessed REASON FOR VISIT right earache for 3 weeks. bilateral lower extremities swollen for a month. [email or web address] PLAN OF CARE Activity Details Follow Up prn Reason: VITAL SIGNS Height 64 in 2016-09-18 Weight 235.0 lbs 2016-09-18 Temperature 97.7 degrees Fahrenheit 2016-09-18 Heart Rate 84 bpm 2016-09-18 Respiratory Rate 22 2016-09-18 BMI 40.33 kg/m2 2016-09-18 Blood pressure systolic 142 mmHg 2016-09-18 Blood pressure diastolic 88 mmHg 2016-09-18 MEDICATIONS Medication Instructions Dosage Frequency Start Date End Date Duration Status Alprazolam 0.5 MG Orally Three times a day 1 tablet 8h Active Lopressor 50 MG Orally Twice a day 1 tablet 12h Active Advair Diskus 250-50 MCG/DOSE Active Hydrochlorothiazide 25 MG Orally Once a day 1 tablet 24h Active Losartan Potassium 100 MG Orally Once a day 1 tablet 24h Active Bactrim DS 800-160 MG Orally Twice a day 1 tablet 12h Active Zyrtec Allergy 10 MG Orally Once a day 1 tablet 24h Aug, Sep, 30 day(s) Active Valtrex 1000 mg Orally 3 times a day 1 tablet 8h Active Lyndon 5-325 MG Orally every 6 hrs 1 tablet as needed 6h Active Albuterol Sulfate (2.5 MG/3ML) 0.083% Inhalation Three times a day 3 ml 8h Active Omeprazole 40 MG Orally Once a day 1 capsule 24h Active Flonase 50 MCG/ACT Nasally Once a day 1 spray in each nostril 24h Aug, 30 day(s) Active RESULTS Name Result Date Reference Range UA LONG DIP (IN HOUSE) 2016-09-18 Lot # [id number] Exp date 2017 06 30 Clarity clear Color yellow Odor strong GLU trace EMILY negative KET negative SG 1.020 BLO negative pH 5.5 Protein 1+ URO 0.2 NIT negative KATELYN negative Lot # [id number] Exp date 2017 04 PROCEDURES Procedure Date Ordered Result Body Site URINALYSIS, AUTO, W/O SCOPE September 18, 2016 [facility] VISIT ESTABLISHED PATIENT September 18, 2016 INSTRUCTIONS MEDICATIONS ADMINISTERED No Known Medications MEDICAL (GENERAL) HISTORY Type Description Date Medical History Essential (primary) hypertension Surgical History tubal ligation Surgical History hernia repair
[2017-09-16] MEDS ORDERED: FLUC200T5 (14:38)
[2017-09-16] MEDS ORDERED: FURO20TA4 (14:38)
[2017-09-16] MEDS ORDERED: IBUP-1780 (14:38)
[2017-09-16] MEDS ORDERED: MECL12.579 (14:38)
--- NOTE | 2017-09-16 15:41 | ED Headache ---
General Chief Complaint: Head/Cervical Problems Stated Complaint: SHARP PAIN IN HEAD Nursing Triage Note: TO ED WITH MALE C/O SHARP PAIN IN BACK OF HEAD TODAY . 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 HAS NOT TAKE ANYTHING OTC FOR PAIN Nursing Sepsis Screen: No Definite Risk Source: patient Exam Limitations: no limitations History of Present Illness Date Seen by Provider: Sep 16, 2017 Time Seen by Provider: 15:12 Initial Comments Here with report of headache that is posterior and quite severe today. She has been getting these for 50+ years but felt like it was a little worse today. She had not taken her blood pressure medicine and she has not taken anything for the pain. She did take her blood pressure medicine at 2 o'clock and seems to be responding son now. Denies nausea or vomiting. Denies weakness. Does have chronic back pain. She follows with Dr. dixon in [place]. Timing/Duration: 1-3 hours Severity/Quality: moderate, severe Location: occipital Prior Headaches/Recent Trauma: frequent headaches Modifying Factors: improves with rest Associated Symptoms: No confusion, No facial pain, No fever/chills, No loss of consciousness, No nausea/vomiting, No sinus infection, No stiff neck, No vision changes Allergies and Home Medications Allergies Coded Allergies: hydrocortisone (Verified Allergy, Unknown, 04/21/16) oxycodone (Verified Allergy, Unknown, 09/16/17) ether (Verified Adverse Reaction, Unknown, 09/10/16) Home Medications Hydroxyzine Pamoate 25 Mg Capsule, 25 MG PO Q6H PRN for ITCHING Prescribed by: HERMINIO SU on 04/25/17 7437 Losartan Potassium 50 Mg Tablet, 50 MG PO DAILY, (Reported) Patient Home Medication List Home Medication List Reviewed: Yes Review of Systems Constitutional: see HPI; No chills, No fever Eyes: Photophobia Ears, Nose, Mouth, Throat: no symptoms reported Respiratory: cough; No dyspnea on exertion, No short of breath, No stridor, No wheezing Cardiovascular: No chest pain, No edema Gastrointestinal: No abdominal pain, No nausea, No vomiting Genitourinary: no symptoms reported Musculoskeletal: no symptoms reported Psychiatric/Neurological: Headache; Denies Numbness, Denies Tingling All Other Systems Reviewed Negative Unless Noted: Yes Past Wabzadq-Cbumkt-Tdwvxq Hx Patient Social History Alcohol Use: Denies Use Recreational Drug Use: No Recent Foreign Travel: No Contact w/Someone Who Travel: No Recent Infectious Disease Expo: No Recent Hopitalizations: No Seasonal Allergies Seasonal Allergies: No Past Medical History Surgeries: Yes (HERNIA REPAIR) Abdominal, Tubal Ligation Respiratory: Yes Pneumonia, Chronic Bronchitis Currently Using CPAP: No Currently Using BIPAP: No Cardiac: Yes Hypertension Neurological: No 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 Disorders: No 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: Menopausal Kidney Infection, UTI-Chronic Gastrointestinal: Yes Chronic Constipation Musculoskeletal: Yes (FLOATING DISK, OSTEOPOROSIS, BONES DETERIOATING ) Chronic Back Pain Endocrine: Yes Diabetes, Non-Insulin dep HEENT: No Cancer: No Psychosocial: No Integumentary: No Blood Disorders: No Family Medical History Reviewed Nursing Family Hx Cardiovascular disease 19 FATHER Diabetes mellitus 19 MOTHER G8 BROTHER FH: cancer 19 MOTHER Hypertension 19 MOTHER 19 FATHER G8 BROTHER Physical Exam Vital Signs Vital Signs - First Documented 09/16/17 14:27 Temp 97.0 Pulse 81 Resp 18 B/P (MAP) 195/106 (135) Capillary Refill : Less Than 3 Seconds General Appearance: WD/WN, no apparent distress Neck: non-tender, full range of motion, supple Cardiovascular: regular rate, rhythm, no murmur Respiratory: lungs clear, normal breath sounds Gastrointestinal: non tender, soft Extremities: non-tender, normal inspection Psychiatric: alert, oriented x 3 Crainal Nerves: normal hearing, normal speech, PERRL Coordination/Gait: normal finger to nose, normal gait Motor/Sensory: no motor deficit, no sensory deficit Skin: normal color, warm/dry Progress/Results/Core Measures Results/Orders Lab Results Laboratory Tests Test 09/16/17 15:46 Range/Units White Blood Count 8.1 4.3-11.0 10^3/uL Red Blood Count 4.90 4.35-5.85 10^6/uL Hemoglobin 14.1 11.5-16.0 G/DL Hematocrit 42 35-52 % Mean Corpuscular Volume 85 80-99 FL Mean Corpuscular Hemoglobin 29 25-34 PG Mean Corpuscular Hemoglobin Concent 34 32-36 G/DL Red Cell Distribution Width 14.4 10.0-14.5 % Platelet Count 180 130-400 10^3/uL Mean Platelet Volume 11.8 H 7.4-10.4 FL Neutrophils (%) (Auto) 75 42-75 % Lymphocytes (%) (Auto) 19 12-44 % Monocytes (%) (Auto) 6 0-12 % Eosinophils (%) (Auto) 0 0-10 % Basophils (%) (Auto) 0 0-10 % Neutrophils # (Auto) 6.1 1.8-7.8 X 10^3 Lymphocytes # (Auto) 1.5 1.0-4.0 X 10^3 Monocytes # (Auto) 0.5 0.0-1.0 X 10^3 Eosinophils # (Auto) 0.0 0.0-0.3 10^3/uL Basophils # (Auto) 0.0 0.0-0.1 10^3/uL Sodium Level 142 135-145 MMOL/L Potassium Level 3.9 3.6-5.0 MMOL/L Chloride Level 105 98-107 MMOL/L Carbon Dioxide Level 27 21-32 MMOL/L Anion Gap 10 5-14 MMOL/L Blood Urea Nitrogen 13 7-18 MG/DL Creatinine 0.79 0.60-1.30 MG/DL Estimat Glomerular Filtration Rate > 60 BUN/Creatinine Ratio 16 Glucose Level 79 70-105 MG/DL Calcium Level 9.2 8.5-10.1 MG/DL Total Bilirubin 0.5 0.1-1.0 MG/DL Aspartate Amino Transf (AST/SGOT) 16 5-34 U/L Alanine Aminotransferase (ALT/SGPT) 14 0-55 U/L Alkaline Phosphatase 61 40-136 U/L Total Protein 7.0 6.4-8.2 GM/DL Albumin 4.2 3.2-4.5 GM/DL My Orders Orders - SHEILA WRIGHT MD Ct Head Wo (09/16/17 15:33) Chest 1 View, Ap/Pa Only (09/16/17 15:33) Cbc With Automated Diff (09/16/17 15:33) Comprehensive Metabolic Panel (09/16/17 15:33) Vital Signs/I&O 09/16/17 14:27 Temp 97.0 Pulse 81 Resp 18 B/P (MAP) 195/106 (135) Blood Pressure Mean: 135 Progress Progress Note : Progress Note Seen and evaluated. We will check CT of the head, chest x-ray and basic labs. Monitor patient. 1628: CT, x-rays and labs are normal. No acute findings. Patient's headache is resolving. Discharged home with return precautions. Patient verbalize understanding instructions and agreement with plan. Diagnostic Imaging Diagonstic Imaging: CT Plain Films/CT/US/NM/MRI: head Comments NAME: HENNA LEE [facility] REC#: [id number] PT STATUS: REG ER : 1950 PHYSICIAN: SHEILA WRIGHT MD ADMIT DATE: 09/16/17/ER Signed Date of Exam: 09/16/17 CT HEAD WO PROCEDURE: CT head without contrast. TECHNIQUE: Multiple contiguous axial images were obtained through the brain without the use of intravenous contrast. INDICATION: Exacerbation of chronic headache, near syncope The ventricles are normal in size, shape and position. There are no masses or hemorrhages. There are no extra-axial fluid collections. Impression: Negative CT head Dictated by: Dictated on workstation # [id number] Dict: 09/16/171610 Trans: 09/16/171611 Interpreted by: SHEILA FUNK MD Electronically signed by: SHEILA FUNK MD 09/16/171611 Diagonstic Imaging: Xray Plain Films/CT/US/NM/MRI: chest Comments NAME: HENNA LEE [facility] REC#: [id number] PT STATUS: REG ER : 1950 PHYSICIAN: SHEILA WRIGHT MD ADMIT DATE: 09/16/17/ER Signed Date of Exam: 09/16/17 CHEST 1 VIEW, AP/PA ONLY Indication: Hypertension, diabetes, headache Heart size and pulmonary vascular normal. Lungs are clear. There are no effusions or pneumothoraces. Impression: Negative chest Dictated by: Dictated on workstation # [id number] Dict: 09/16/17 1615 Trans: 09/16/171615 Interpreted by: SHEILA FUNK MD Electronically signed by: SHEILA FUNK MD 09/16/171615 Departure Impression Primary Impression: Headache Qualified Codes: R51 - Headache Additional Impression: Labile hypertension Disposition: 01 HOME, SELF-CARE Condition: Improved Departure-Patient Inst. Decision time for Depature: 16:40 Referrals: SELF,KALA MD (PCP/Family) Primary Care Physician Patient Instructions: Headache, Adult (DC), High Blood Pressure (DC) Add. Discharge Instructions: All discharge instructions reviewed with patient and/or family. Voiced understanding. Take your prescribed medications as directed. Do not miss doses of your blood pressure medicine as this increases your risk of stroke. Follow-up with your Dr. in a few days for recheck. Return for worsening, fever, vomiting, weakness , breathing problems or other concerns as needed. SHEILA WRIGHT MD Sep 16, 2017 15:41
[2017-09-16 15:57] LABS: BASOPHILS % (AUTO) 0 % (0-10); EOSINOPHILS % (AUTO) 0 % (0-10); HEMATOCRIT 42 % (35-52); HEMOGLOBIN 14.1 G/DL (11.5-16.0); LYMPHOCYTES # (AUTO) 1.5 X 10^3 (1.0-4.0); LYMPHOCYTES % (AUTO) 19 % (12-44); MEAN CORPUSCULAR HEMOGLOBIN 29 PG (25-34); MEAN CORPUSCULAR HGB CONC 34 G/DL (32-36); MEAN CORPUSCULAR VOLUME 85 FL (80-99); MEAN PLATELET VOLUME 11.8 FL (7.4-10.4); MONOCYTES # (AUTO) 0.5 X 10^3 (0.0-1.0); MONOCYTES % (AUTO) 6 % (0-12); NEUTROPHILS # (AUTO) 6.1 X 10^3 (1.8-7.8); NEUTROPHILS % (AUTO) 75 % (42-75); PLATELET COUNT 180 10^3/uL (130-400); RED CELL DISTRIBUTION WIDTH 14.4 % (10.0-14.5); WHITE BLOOD COUNT 8.1 10^3/uL (4.3-11.0)
--- NOTE | 2017-09-16 16:14 | Diagnostic Imaging Report ---
PROCEDURE: CT head without contrast. TECHNIQUE: Multiple contiguous axial images were obtained through the brain without the use of intravenous contrast. INDICATION: Exacerbation of chronic headache, near syncope The ventricles are normal in size, shape and position. There are no masses or hemorrhages. There are no extra-axial fluid collections. Impression: Negative CT head Dictated by: Dictated on workstation # [id number]
[2017-09-16 16:18] LABS: ALANINE AMINOTRANSFERASE 14 U/L (0-55); ALBUMIN 4.2 GM/DL (3.2-4.5); ALKALINE PHOSPHATASE 61 U/L (40-136); BILIRUBIN,TOTAL 0.5 MG/DL (0.1-1.0); BUN/CREATININE RATIO 16; CALCIUM 9.2 MG/DL (8.5-10.1); CARBON DIOXIDE 27 MMOL/L (21-32); CHLORIDE 105 MMOL/L (98-107); CREATININE SERUM 0.79 MG/DL (0.60-1.30); GFR ESTIMATED > 60; GLUCOSE 79 MG/DL (70-105); POTASSIUM 3.9 MMOL/L (3.6-5.0); SODIUM 142 MMOL/L (135-145)
--- NOTE | 2017-09-16 16:18 | Diagnostic Imaging Report ---
Indication: Hypertension, diabetes, headache Heart size and pulmonary vascular normal. Lungs are clear. There are no effusions or pneumothoraces. Impression: Negative chest Dictated by: Dictated on workstation # [id number]
[2017-09-16 16:50] VITALS: BP 150/101
== END 2017-09-16 16:49 | disposition home or self-care (01) ==
LOC: EDUNIT# 14:23 → ER 14:25
DX: R51 Headache (principal); I10 Essential (primary) hypertension; E11.9 Type 2 diabetes mellitus without complications; M81.0 Age-related osteoporosis without current pathological fracture; Z82.49 Family history of ischemic heart disease and other diseases of the circulatory system; Z87.440 Personal history of urinary (tract) infections; Z88.5 Allergy status to narcotic agent; Z88.8 Allergy status to other drugs, medicaments and biological substances; Z87.19 Personal history of other diseases of the digestive system; Z98.51 Tubal ligation status; Z87.01 Personal history of pneumonia (recurrent)
CPT/HCPCS: 36415; 70450; 71045; 80053; 85025

== ENCOUNTER 2017-12-31 13:23 | Emergency (ER) | payer MEDICARE, MEDICAID ==
[~2017-12-31] VITALS: Ht 170.2 cm; Wt 106.1 kg
[~2017-12-31 13:23] MED LIST changes: -BENZ-13 PO; +BENZ100C18 PO; +FLUC200T5; +FURO20TA4; +IBUP-1780; -LOSA50TA36 PO; +LOSA50TA7 PO; +MECL12.579
--- NOTE | 2017-12-31 13:54 | ED General ---
General Stated Complaint: LEAKAGE IN HEART PER HER DRAIDAN ARM SWELLING Source of Information: Patient Exam Limitations: No Limitations History of Present Illness Date Seen by Provider: Dec 31, 2017 Time Seen by Provider: 13:35 Initial Comments Here with concerns about pain to the left chest wall with arm movement and has been going on for a month. Also has concerns because she thinks that her heart is leaking and causing the swelling. She was told by her doctor that she has a leaky heart and she was worried that it's leaking out to this area. It turns out that she had an echocardiogram that showed mild regurgitation of a bowel movement and it was explained to her as a leaky heart or leaky valve and she interpreted this to mean it was leaking out of her heart. This was explained to her further and she was much more comfortable with that. With respect to the left axillary/chest wall muscle pain, patient sleeps in a recliner and uses a seated walker to get around and has to push up often with her arms. She admits that this put strain on her back muscles and that does cause the type of pain that she is having. She reports cough over the last week or more. Does have chronic leg swelling. Was supposed to start a new blood pressure medicine and diuretic but didn't because she was concerned about kidney or liver damage. It was further explained to her about monitoring for kidney function with blood pressure medicines and diuretics and she felt more comfortable with that. She has the medicine available to start and will start those. She does have known hypertension and pedal edema. Timing/Duration: 1 Week, Getting Worse Severity: Moderate Associated Systoms: Cough (mild intermittent); No Fever/Chills, No Nausea/ Vomiting, No Shortness of Air; Weakness (chronic) Allergies and Home Medications Allergies Coded Allergies: hydrocortisone (Verified Allergy, Unknown, 04/21/16) oxycodone (Verified Allergy, Unknown, 09/16/17) ether (Verified Adverse Reaction, Unknown, 09/10/16) Home Medications Hydroxyzine Pamoate 25 Mg Capsule, 25 MG PO Q6H PRN for ITCHING Prescribed by: HERMINIO SU on 04/25/17 2716 Losartan Potassium 50 Mg Tablet, 50 MG PO DAILY, (Reported) Patient Home Medication List Home Medication List Reviewed: Yes Review of Systems Review of Systems Constitutional: see HPI; No chills, No fever EENTM: no symptoms reported Respiratory: No short of breath, No wheezing Cardiovascular: No chest pain; edema; No palpitations Gastrointestinal: No abdominal pain, No nausea, No vomiting Genitourinary: no symptoms reported Musculoskeletal: no symptoms reported All Other Systems Reviewed Negative Unless Noted: Yes Past Opfckat-Btjmrg-Dkygsp Hx Past Med/Social Hx: Reviewed Nursing Past Med/Soc Hx Patient Social History Alcohol Use: Denies Use Recreational Drug Use: No Smoking Status: Never a Smoker Recent Foreign Travel: No Contact w/Someone Who Travel: No Recent Hopitalizations: No Seasonal Allergies Seasonal Allergies: No Past Medical History Surgeries: Yes (HERNIA REPAIR) Abdominal, Tubal Ligation Respiratory: Yes Pneumonia, Chronic Bronchitis Currently Using CPAP: No Currently Using BIPAP: No Cardiac: Yes Hypertension Neurological: No 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: Menopausal Kidney Infection, UTI-Chronic Gastrointestinal: Yes Chronic Constipation Musculoskeletal: Yes (FLOATING DISK, OSTEOPOROSIS, BONES DETERIOATING ) Chronic Back Pain Endocrine: Yes Diabetes, Non-Insulin dep HEENT: No Cancer: No Psychosocial: No Integumentary: No Blood Disorders: No Family Medical History Reviewed Nursing Family Hx Cardiovascular disease 19 FATHER Diabetes mellitus 19 MOTHER G8 BROTHER FH: cancer 19 MOTHER Hypertension 19 MOTHER 19 FATHER G8 BROTHER Physical Exam Vital Signs Vital Signs - First Documented 12/31/17 12/31/17 13:52 14:02 Temp 98.4 Pulse 64 Resp 18 B/P (MAP) 180/102 (128) O2 Delivery Room Air Capillary Refill : Height, Weight, BMI Height: 5'5.00" Weight: 235lbs. oz. 106.155728uq; BMI Method:Stated General Appearance: No Apparent Distress, WD/WN Neck: Non Tender, Supple Respiratory: Lungs Clear, Normal Breath Sounds, Other (tender to the left lateral chest wall along the musculature with reproducible tenderness.) Cardiovascular: Regular Rate, Rhythm, No Murmur Back: Normal Inspection, No CVA Tenderness, No Vertebral Tenderness Extremity: Normal Range of Motion, Pedal Edema (2+ bilateral lower extremities) Neurologic/Psychiatric: Alert, Oriented x3 Skin: Normal Color, Warm/Dry Lymphatic: No Axilla Node Tender (L), No Axilla Node Tender (R) Progress/Results/Core Measures Suspected Sepsis SIRS Temperature: Pulse: Respiratory Rate: Blood Pressure / Mean: Results/Orders My Orders Orders - SHEILA WRIGHT MD Chest Pa/Lat (2 View) (12/31/17 13:46) Vital Signs/I&O 12/31/17 12/31/17 13:52 14:02 Temp 98.4 Pulse 64 Resp 18 B/P (MAP) 180/102 (128) O2 Delivery Room Air Capillary Refill : Progress Note : Progress Note Seen and evaluated. Discussed blood pressure, heart murmur and edema and her current therapies with the patient. Discussed to not sleep in a recliner. She should start medications as her doctor as directed and to follow-up as directed. She reports that she will do both. We will get chest x-ray to evaluate lungs due to cough but otherwise no further evaluation at this time and patient and family agree. She is much more comfortable now understanding what the leaky heart conversation really meant. On exam there is no appreciable murmur noted. Monitor patient. 1425: No acute findings. Discharged home with return precautions. Patient and family verbalize understanding instructions and agreement with plan. Diagnostic Imaging Diagonstic Imaging: Xray Plain Films/CT/US/NM/MRI: chest Comments VIA [facility]. [place], [place] NAME: HENNA LEE [facility] REC#: [id number] PT STATUS: REG ER : 1950 PHYSICIAN: SHEILA WRIGHT MD ADMIT DATE: 12/31/17/ER Draft Date of Exam:12/31/17 CHEST PA/LAT (2 VIEW) EXAM: CHEST PA/LAT (2 VIEW) INDICATION: Cough. COMPARISON: Chest radiographs 09/16/2017. FINDINGS: Normal heart size and pulmonary vascularity. No focal pulmonary opacity, pleural effusion or pneumothorax. No acute osseous findings. IMPRESSION: No acute cardiopulmonary findings. Dictated on workstation # [id number] Dict: 12/31/17 1415 Trans: 12/31/17 1418 [facility] [id number] Interpreted by: HUSEYIN CERDA MD Electronically signed by: Departure Impression Primary Impression: Chest wall pain Additional Impression: Anxiety about health Disposition: 01 HOME, SELF-CARE Condition: Improved Departure-Patient Inst. Decision time for Depature: 14:26 Referrals: KALA PORTILLO MD (PCP/Family) Primary Care Physician Patient Instructions: Anxiety, Adult (DC), Chest Pain That Is Not Caused by the Heart (DC), Cough, Adult (DC) Add. Discharge Instructions: Stop sleeping in a recliner. You should elevate her legs and feet above your heart couple of times a day as this will decrease your swelling. Start taking medications prescribed by your doctor for your blood pressure and leg swelling. Follow up with your Dr. in a few days for recheck as needed. Return for worse pain, fever, vomiting, weakness, breathing problems or other concerns as needed. SHEILA WRIGHT MD Dec 31, 2017 13:54
--- NOTE | 2017-12-31 14:19 | Diagnostic Imaging Report ---
EXAM: CHEST PA/LAT (2 VIEW) INDICATION: Cough. COMPARISON: Chest radiographs 09/16/2017. FINDINGS: Normal heart size and pulmonary vascularity. No focal pulmonary opacity, pleural effusion or pneumothorax. No acute osseous findings. IMPRESSION: No acute cardiopulmonary findings. Dictated by: Dictated on workstation # [id number]
[2017-12-31 14:32] VITALS: BP 169/91
== END 2017-12-31 14:32 | disposition home or self-care (01) ==
LOC: EDUNIT# 13:23 → ER 13:25
DX: R07.89 Other chest pain (principal); F41.9 Anxiety disorder, unspecified; I10 Essential (primary) hypertension; E11.9 Type 2 diabetes mellitus without complications; Z87.440 Personal history of urinary (tract) infections; Z87.448 Personal history of other diseases of urinary system; Z98.51 Tubal ligation status; Z98.890 Other specified postprocedural states; Z88.5 Allergy status to narcotic agent; Z88.8 Allergy status to other drugs, medicaments and biological substances; Z87.01 Personal history of pneumonia (recurrent); Z82.49 Family history of ischemic heart disease and other diseases of the circulatory system
CPT/HCPCS: 71046

== ENCOUNTER 2018-01-11 17:17 | Emergency (ER) | payer MEDICARE, MEDICAID ==
[~2018-01-11] VITALS: Ht 172.7 cm; Wt 106.6 kg
--- NOTE | 2018-01-11 17:55 | ED Fall/Injury ---
General Chief Complaint: Trauma-Non Activation Stated Complaint: FALL ON LEFT SIDE PAIN Source: patient, other Exam Limitations: no limitations (HIREN MUIR) History of Present Illness Date Seen by Provider: Jan 11, 2018 Time Seen by Provider: 17:44 Initial Comments To the patient presents to the ER by private conveyance with her significant other chief complaint of a fall to the floor from her walker against her left side. She did strike the back of her head. She says she was knocked over by her dogs. She did not lose consciousness. She does not have a hematoma or bump on her head. She does historically have a cyst on the top of her head as well as her left wrist. She's having no dysuria, shortness of breath, cough, fevers or chills. She does have some left rib tenderness and her left elbow and upper arm has an abrasion on it and her left knee is tender. She is not on blood thinners or aspirin or Plavix. (HIREN MUIR) Allergies and Home Medications Allergies Coded Allergies: hydrocortisone (Verified Allergy, Unknown, 04/21/16) oxycodone (Verified Allergy, Unknown, 09/16/17) ether (Verified Adverse Reaction, Unknown, 09/10/16) Home Medications Hydroxyzine Pamoate 25 Mg Capsule, 25 MG PO Q6H PRN for ITCHING Prescribed by: HERMINIO SU on 04/25/17 1637 Losartan Potassium 50 Mg Tablet, 50 MG PO DAILY, (Reported) Patient Home Medication List Home Medication List Reviewed: Yes (HIREN MUIR) Review of Systems Review of Systems Constitutional: No chills, No diaphoresis Eyes: Denies Blindness, Denies Blurred Vision Ears, Nose, Mouth, Throat: denies ear pain, denies ear discharge Respiratory: No cough, No short of breath Cardiovascular: No chest pain, No edema Gastrointestinal: No abdominal pain, No constipation, No diarrhea Genitourinary: No discharge, No dysuria (HIREN MUIR) Past Edxvvcf-Lepsdi-Msltss Hx Patient Social History Alcohol Use: Denies Use Recreational Drug Use: No Smoking Status: Never a Smoker 2nd Hand Smoke Exposure: Yes Recent Foreign Travel: No Contact w/Someone Who Travel: No Recent Hopitalizations: No Physical Abuse: No Sexual Abuse: No Mistreated: No Fear: No (HIREN MUIR) Seasonal Allergies Seasonal Allergies: No (HIREN MUIR) Past Medical History Surgeries: Yes (HERNIA REPAIR) Abdominal, Tubal Ligation Respiratory: Yes Pneumonia, Chronic Bronchitis Currently Using CPAP: No Currently Using BIPAP: No Cardiac: Yes Hypertension Neurological: No 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: Menopausal Kidney Infection, UTI-Chronic Gastrointestinal: Yes Chronic Constipation Musculoskeletal: Yes (FLOATING DISK, OSTEOPOROSIS, BONES DETERIOATING ) Chronic Back Pain Endocrine: Yes Diabetes, Non-Insulin dep HEENT: No Cancer: No Psychosocial: No Integumentary: No Blood Disorders: No (HIREN MUIR) Family Medical History Cardiovascular disease 19 FATHER Diabetes mellitus 19 MOTHER G8 BROTHER FH: cancer 19 MOTHER Hypertension 19 MOTHER 19 FATHER G8 BROTHER Physical Exam Vital Signs Vital Signs - First Documented 01/11/18 17:55 Temp 97.7 Pulse 78 Resp 20 B/P (MAP) 174/114 (134) Pulse Ox 97 (HERMINIO SU APRN) Vital Signs Capillary Refill : (HIREN MUIR) Height, Weight, BMI Height: 5'7.00" Weight: 234lbs. oz. 106.713784ey; BMI Method:Stated General Appearance: WD/WN, no apparent distress HEENT: PERRL/EOMI, normal ENT inspection, TMs normal, pharynx normal, other ( Cyst on the top of her head which appears chronic. There is no hematoma, abrasion, hemotympanum, chaudhry sign or raccoon eyes.) Neck: non-tender, full range of motion, supple, normal inspection Cardiovascular: normal peripheral pulses, regular rate, rhythm Respiratory: chest non-tender, lungs clear, normal breath sounds, no respiratory distress, no accessory muscle use Peripheral Pulses: 2+ Dorsalis Pedis (R), 2+ Left Dors-Pedis (L), 2+ Radial Pulses (R), 2+ Radial Pulses (L) Gastrointestinal: normal bowel sounds, non tender, soft Extremities: normal range of motion (bilateral upper extremities), non-tender, normal capillary refill, other (minor abrasion on the left upper arm and elbow without ecchymosis. There is tenderness to palpation of the left knee. Bilateral hips are nontender to palpation.) Neurologic/Psychiatric: rn labor delivery II-XII nml as tested, no motor/sensory deficits, alert, normal mood/affect, oriented x 3 Skin: other (minor abrasions left upper extremity) (HIREN MUIR) Pallavi Coma Score Best Eye Response: (4) Open Spontaneously Best Verbal Response: (5) Oriented Best Motor Response: (6) Obeys Commands Pallavi Total: 15 (HIREN MUIR) Progress/Results/Core Measures Results/Orders Vital Signs/I&O 01/11/18 17:55 Temp 97.7 Pulse 78 Resp 20 B/P (MAP) 174/114 (134) Pulse Ox 97 (HERMINIO SU APRN) Progress Progress Note : Time: 17:[address] of the head and C-spine as well as x-ray of the left knee and left ribs. Transfer care to [facility]. (HIREN MUIR) Diagnostic Imaging Diagonstic Imaging: CT (C/O contrast) Plain Films/CT/US/NM/MRI: c-spine, head Reviewed: Reviewed by Me Diagonstic Imaging: Xray Plain Films/CT/US/NM/MRI: chest (left ribs) Reviewed: Reviewed by Me Diagonstic Imaging: Xray Plain Films/CT/US/NM/MRI: knee (Left) Reviewed: Reviewed by Me (HIREN MUIR) Departure Impression Primary Impression: Fall Qualified Codes: W19.XXXA - Unspecified fall, initial encounter Additional Impression: Abrasion Disposition: 01 HOME, SELF-CARE Condition: Stable Departure-Patient Inst. Decision time for Depature: 18:45 (HERMINIO SU APRN) Referrals: KALA PORTILLO MD (PCP/Family) Primary Care Physician Patient Instructions: Contusion (DC), Preventing Falls in the Older Adult Add. Discharge Instructions: All discharge instructions reviewed with patient and/or family. Voiced understanding. HIREN MUIR Jan 11, 2018 17:55 HERMINIO SU APRN Jan 11, 2018 18:45
--- NOTE | 2018-01-11 18:34 | Diagnostic Imaging Report ---
CLINICAL INDICATION: Patient had a fall today and hit posterior aspect of head. Exam: Head CT without IV contrast. Axial CT scan of the cervical spine with sagittal and coronal reformations. Comparison: Head CT without contrast dated 09/16/2017. Findings: Head CT: There is no evidence of acute cerebral infarct, intracranial hemorrhage, or gross mass effect. The brain parenchymal volume appears appropriate for patient's age. Stable patchy areas of low-attenuation white matter changes throughout both cerebral hemispheres, likely representing chronic small vessel ischemic disease. There is normal flores-white matter distinction. There is no significant midline shift or herniation. There is no evidence of hydrocephalus. The basal cisterns are unremarkable. There is a small area of extracranial soft tissue swelling involving the right lateral aspect of the head. There is no skull fracture. Otherwise, the skull, extracranial soft tissue, and orbits are unremarkable. The paranasal sinuses are unremarkable. Temporal bones show no significant abnormality. Cervical spine: There is no acute cervical spine fracture. There is grade 1 anterolisthesis of C3 on C4 with no pars defect seen and is likely degenerative. There are cervical spine degenerative disease with vertebral body spurs and facet arthropathy. There is note of incomplete bony structures involving the right posterior aspect of the C1 arch. This may be postoperative or congenital. There is mild bilateral apical pleural-parenchymal thickening/sclerosis involving the lung apices. Neck soft tissue structures show no significant abnormality. Impression: 1: Stable CT scan of brain with no evidence of acute intracranial process. There is no skull fracture. 2: Cervical spine degenerative disease with no acute fracture. There is grade 1 anterolisthesis C3 on C4 which is degenerative. Dictated by: Dictated on workstation # [id number]
--- NOTE | 2018-01-11 18:38 | Diagnostic Imaging Report ---
Clinical indication: Patient is status post fall today and hit left side. Patient complains of left lateral rib pain. Exam: X-ray of the left ribs, 3 views. Comparison: Chest x-ray dated 12/31/2017. Findings: Of note, portions of the left ribs are obscured by overlapping anatomical shadows. There is no evidence of fracture of the left ribs. There is hypertrophic spurs seen throughout the visualized portion of the thoracic and lumbar spine. Visualized portion of the chest shows no significant abnormality. Impression: There are no left rib fractures seen. Dictated by: Dictated on workstation # [id number]
--- NOTE | 2018-01-11 18:39 | Diagnostic Imaging Report ---
INDICATION: Fall, left knee pain. FINDINGS: Three views of the left knee show no fracture, dislocation or other acute bony abnormality. There are tricompartmental degenerative changes. Narrowing is most pronounced medially. No effusion is evident. IMPRESSION: There are degenerative changes present with no acute abnormality seen. Dictated by: Dictated on workstation # [id number]
[2018-01-11 18:53] VITALS: BP 165/100
== END 2018-01-11 18:53 | disposition home or self-care (01) ==
LOC: EDUNIT# 17:17 → ER 17:18
DX: S00.81XA Abrasion of other part of head, initial encounter (principal); I10 Essential (primary) hypertension; E11.9 Type 2 diabetes mellitus without complications; M81.0 Age-related osteoporosis without current pathological fracture; R40.2142 Coma scale, eyes open, spontaneous, at arrival to emergency department; R40.2252 Coma scale, best verbal response, oriented, at arrival to emergency department; R40.2362 Coma scale, best motor response, obeys commands, at arrival to emergency department; Z87.440 Personal history of urinary (tract) infections; Z88.8 Allergy status to other drugs, medicaments and biological substances; Z82.49 Family history of ischemic heart disease and other diseases of the circulatory system; Z88.5 Allergy status to narcotic agent; Z77.22 Contact with and (suspected) exposure to environmental tobacco smoke (acute) (chronic); Z98.51 Tubal ligation status; Z87.19 Personal history of other diseases of the digestive system; Z87.01 Personal history of pneumonia (recurrent); W01.198A Fall on same level from slipping, tripping and stumbling with subsequent striking against other object, initial encounter
CPT/HCPCS: 70450; 71100; 72125; 73562

== ENCOUNTER 2018-06-19 13:36 | Emergency (ER) | payer MEDICARE, MEDICAID ==
[~2018-06-19] VITALS: Ht 167.6 cm; Wt 109.8 kg
[~2018-06-19 13:36] MED LIST changes: +LOSA50TA63 PO; -LOSA50TA7 PO
[2018-06-19 14:29] LABS: BILIRUBIN,URINE NEGATIVE (NEGATIVE); CLARITY,URINE SLIGHTLY CLOUDY; COLOR,URINE YELLOW; GLUCOSE, URINE (UA) NEGATIVE (NEGATIVE); KETONES,URINE NEGATIVE (NEGATIVE); LEUKOCYTE ESTERASE ,URINE 1+ (NEGATIVE); NITRITE,URINE NEGATIVE (NEGATIVE); PH,URINE 5 (5-9); PROTEIN,URINE 2+ (NEGATIVE); UROBILINOGEN,URINE NORMAL (NORMAL)
[2018-06-19 14:29] LABS: BASOPHILS % (AUTO) 0 % (0-10); EOSINOPHILS # (AUTO) 0.1 10^3/uL (0.0-0.3); EOSINOPHILS % (AUTO) 1 % (0-10); HEMATOCRIT 44 % (35-52); HEMOGLOBIN 14.4 G/DL (11.5-16.0); LYMPHOCYTES # (AUTO) 1.6 X 10^3 (1.0-4.0); LYMPHOCYTES % (AUTO) 23 % (12-44); MEAN CORPUSCULAR HEMOGLOBIN 29 PG (25-34); MEAN CORPUSCULAR HGB CONC 33 G/DL (32-36); MEAN CORPUSCULAR VOLUME 86 FL (80-99); MEAN PLATELET VOLUME 11.7 FL (7.4-10.4); MONOCYTES # (AUTO) 0.4 X 10^3 (0.0-1.0); MONOCYTES % (AUTO) 6 % (0-12); NEUTROPHILS % (AUTO) 70 % (42-75); PLATELET COUNT 166 10^3/uL (130-400); RED CELL DISTRIBUTION WIDTH 14.4 % (10.0-14.5); WHITE BLOOD COUNT 7.2 10^3/uL (4.3-11.0)
[2018-06-19 14:36] LABS: BACTERIA,URINE TRACE /HPF; WBC,URINE 0-2 /HPF
[2018-06-19 14:46] LABS: ALANINE AMINOTRANSFERASE 20 U/L (0-55); ALBUMIN 4.4 GM/DL (3.2-4.5); ALKALINE PHOSPHATASE 72 U/L (40-136); AMYLASE 38 U/L (25-125); BILIRUBIN,TOTAL 0.6 MG/DL (0.1-1.0); BUN/CREATININE RATIO 19; CALCIUM 9.2 MG/DL (8.5-10.1); CARBON DIOXIDE 27 MMOL/L (21-32); CHLORIDE 103 MMOL/L (98-107); CREATININE SERUM 0.72 MG/DL (0.60-1.30); GFR ESTIMATED > 60; GLUCOSE 103 MG/DL (70-105); LIPASE 34 U/L (8-78); POTASSIUM 3.7 MMOL/L (3.6-5.0); SODIUM 139 MMOL/L (135-145); TOTAL PROTEIN 7.4 GM/DL (6.4-8.2)
--- NOTE | 2018-06-19 15:06 | ED Abdominal Pain ---
General Chief Complaint: General Problems/Pain Stated Complaint: PAIN IN LOWER BACK, NEEDS APPENDIX CHECKED Nursing Triage Note: PATIENT STATES THAT SHE HAS BEEN HAVING PAIN IN HER RIGHT SIDE AND AROUND TO HER LOWER RIGHT BACK FOR 4 DAYS. THE PAIN IS INTERMITTENT. SHE STATES THAT SHE RECENTLY WAS DIAGNOSED WITH PNEUMONIA AND WAS PRESCRIBED MEDICATION FOR THIS. PAIN STARTED AFTER SHE BEGAN THE MEDICINE. Sepsis Screen: No Definite Risk Source of Information: Patient Exam Limitations: No Limitations History of Present Illness Date Seen by Provider: Jun 19, 2018 Time Seen by Provider: 14:08 Initial Comments 68-year-old female who presents to the emergency room with complaints of right flank pain and urinary frequency for the past 4 days. She was seen at [facility] and was told to come to the emergency room for further evaluation. She has just finished her treatment for pneumonia earlier last week. Timing/Duration: 4-5 Days Location: Flank (right) Radiation: No Radiation Associated Symptoms: Denies Symptoms Allergies and Home Medications Allergies Coded Allergies: hydrocortisone (Verified Allergy, Unknown, 04/21/16) oxycodone (Verified Allergy, Unknown, 09/16/17) ether (Verified Adverse Reaction, Unknown, 09/10/16) Home Medications Hydroxyzine Pamoate 25 Mg Capsule, 25 MG PO Q6H PRN for ITCHING Prescribed by: HERMINIO SU on 04/25/17 1637 Losartan Potassium 50 Mg Tablet, 50 MG PO DAILY, (Reported) Patient Home Medication List Home Medication List Reviewed: Yes Review of Systems Review of Systems Constitutional: see HPI; No chills, No fever Genitourinary: See HPI, Burning, Frequency, Flank Pain All Other Systems Reviewed Negative Unless Noted: Yes Past Iqeisew-Jdwjpi-Mtjklh Hx Past Med/Social Hx: Reviewed Nursing Past Med/Soc Hx Patient Social History Alcohol Use: Denies Use Recreational Drug Use: No Smoking Status: Never a Smoker 2nd Hand Smoke Exposure: Yes Recent Foreign Travel: No Contact w/Someone Who Travel: No Recent Infectious Disease Expo: No Recent Hopitalizations: No Seasonal Allergies Seasonal Allergies: No Past Medical History Surgeries: Yes (HERNIA REPAIR) Abdominal, Tubal Ligation Respiratory: Yes Pneumonia, Chronic Bronchitis Currently Using CPAP: No Currently Using BIPAP: No Cardiac: Yes Hypertension Neurological: Yes Multiple Sclerosis 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 Infection, UTI-Chronic Gastrointestinal: Yes Chronic Constipation Musculoskeletal: Yes (FLOATING DISK, OSTEOPOROSIS, BONES DETERIOATING ) Arthritis, Chronic Back Pain Endocrine: Yes Diabetes, Non-Insulin dep HEENT: No Cancer: No Psychosocial: No Integumentary: No Blood Disorders: No Family Medical History Reviewed Nursing Family Hx Cardiovascular disease 19 FATHER Diabetes mellitus 19 MOTHER G8 BROTHER FH: cancer 19 MOTHER Hypertension 19 MOTHER 19 FATHER G8 BROTHER Physical Exam Vital Signs Vital Signs - First Documented 06/19/18 06/19/18 13:44 15:13 Temp 97.8 Pulse 74 Resp 18 B/P (MAP) 188/91 (123) Pulse Ox 98 O2 Delivery Room Air Capillary Refill : Less Than 3 Seconds Height/Weight/BMI Height: 5'6.00" Weight: 242lbs. 0oz. [id number]; BMI Method:Stated General Appearance: WD/WN, no apparent distress Respiratory: chest non-tender, lungs clear, normal breath sounds, no respiratory distress, no accessory muscle use Cardiovascular: normal peripheral pulses, regular rate, rhythm, no edema, no gallop, no JVD, no murmur Gastrointestinal: normal bowel sounds, non tender, soft, no organomegaly, no pulsatile mass Extremities: normal capillary refill Back: normal inspection, no CVA tenderness, no vertebral tenderness Neurologic/Psychiatric: alert, normal mood/affect, oriented x 3 Skin: normal color, warm/dry Progress/Results/Core Measures Results/Orders Lab Results Laboratory Tests Test 06/19/18 14:15 06/19/18 14:20 Range/Units Urine Color YELLOW Urine Clarity SLIGHTLY CLOUDY Urine pH 5 5-9 Urine Specific [place] 1.020 1.016-1.022 Urine Protein 2+ H NEGATIVE Urine Glucose (UA) NEGATIVE NEGATIVE Urine Ketones NEGATIVE NEGATIVE Urine Nitrite NEGATIVE NEGATIVE Urine Bilirubin NEGATIVE NEGATIVE Urine Urobilinogen NORMAL NORMAL MG/DL Urine Leukocyte Esterase 1+ H NEGATIVE Urine RBC (Auto) NEGATIVE NEGATIVE Urine RBC NONE /HPF Urine WBC 0-2 /HPF Urine Squamous Epithelial Cells 5-10 /HPF Urine Crystals NONE /LPF Urine Bacteria TRACE /HPF Urine Casts NONE /LPF Urine Mucus SMALL H /LPF Urine Culture Indicated NO White Blood Count 7.2 4.3-11.0 10^3/uL Red Blood Count 5.06 4.35-5.85 10^6/uL Hemoglobin 14.4 11.5-16.0 G/DL Hematocrit 44 35-52 % Mean Corpuscular Volume 86 80-99 FL Mean Corpuscular Hemoglobin 29 25-34 PG Mean Corpuscular Hemoglobin Concent 33 32-36 G/DL Red Cell Distribution Width 14.4 10.0-14.5 % Platelet Count 166 130-400 10^3/uL Mean Platelet Volume 11.7 H 7.4-10.4 FL Neutrophils (%) (Auto) 70 42-75 % Lymphocytes (%) (Auto) 23 12-44 % Monocytes (%) (Auto) 6 0-12 % Eosinophils (%) (Auto) 1 0-10 % Basophils (%) (Auto) 0 0-10 % Neutrophils # (Auto) 5.0 1.8-7.8 X 10^3 Lymphocytes # (Auto) 1.6 1.0-4.0 X 10^3 Monocytes # (Auto) 0.4 0.0-1.0 X 10^3 Eosinophils # (Auto) 0.1 0.0-0.3 10^3/uL Basophils # (Auto) 0.0 0.0-0.1 10^3/uL Sodium Level 139 135-145 MMOL/L Potassium Level 3.7 3.6-5.0 MMOL/L Chloride Level 103 98-107 MMOL/L Carbon Dioxide Level 27 21-32 MMOL/L Anion Gap 9 5-14 MMOL/L Blood Urea Nitrogen 14 7-18 MG/DL Creatinine 0.72 0.60-1.30 MG/DL Estimat Glomerular Filtration Rate > 60 BUN/Creatinine Ratio 19 Glucose Level 103 70-105 MG/DL Calcium Level 9.2 8.5-10.1 MG/DL Corrected Calcium 8.9 8.5-10.1 MG/DL Total Bilirubin 0.6 0.1-1.0 MG/DL Aspartate Amino Transf (AST/SGOT) 18 5-34 U/L Alanine Aminotransferase (ALT/SGPT) 20 0-55 U/L Alkaline Phosphatase 72 40-136 U/L Total Protein 7.4 6.4-8.2 GM/DL Albumin 4.4 3.2-4.5 GM/DL Amylase Level 38 25-125 U/L Lipase 34 8-78 U/L My Orders Alysa - MYKEL LEMUS Comprehensive Metabolic Panel (06/19/18 13:46) Lipase (06/19/18 13:46) Amylase (3/25/19 13:46) Ua Culture If Indicated (06/19/18 13:46) Saline Lock/Iv-Start (06/19/18 13:46) Cbc With Automated Diff (06/19/18 13:46) Vital Signs/I&O 06/19/18 06/19/18 13:44 15:13 Temp 97.8 97.8 Pulse 74 74 Resp 18 18 B/P (MAP) 188/91 (123) 180/88 (118) Pulse Ox 98 98 O2 Delivery Room Air Blood Pressure Mean: 123 Progress Progress Note : Time: 15:04 Progress Note I have seen and evaluated the patient. I've informed her of her laboratory findings. Given her relatively normal laboratory findings and reports that her pain is gone at this time she was given the option of a CT and declines a CT of her abdomen and pelvis to further evaluate her pain and wishes to go home.. She agrees with plan of care, plans for discharge, return precautions were given. Departure Impression Primary Impression: Right lower quadrant abdominal pain Disposition: HOME, SELF-CARE Condition: Stable/Unchanged Departure-Patient Inst. Decision time for Depature: 15:06 Referrals: KALA PORTILLO MD (PCP/Family) Primary Care Physician Patient Instructions: Acute Abdomen (Belly Pain) Add. Discharge Instructions: You may use ibuprofen and Tylenol as directed by the bottle for pain relief. Follow-up with your primary care provider within 1 week for recheck. Return back to the emergency room for worsening symptoms or any concerns as needed. All discharge instructions reviewed with patient and/or family. Voiced understanding. MYKEL LEMUS Jun 19, 2018 15:06
[2018-06-19 15:13] VITALS: BP 180/88
== END 2018-06-19 15:13 | disposition home or self-care (01) ==
LOC: EDUNIT# 13:36 → ER 13:39
DX: R10.31 Right lower quadrant pain (principal); I10 Essential (primary) hypertension; G35 Multiple sclerosis; E11.9 Type 2 diabetes mellitus without complications; M81.0 Age-related osteoporosis without current pathological fracture; Z82.49 Family history of ischemic heart disease and other diseases of the circulatory system; Z87.440 Personal history of urinary (tract) infections; Z87.19 Personal history of other diseases of the digestive system; Z88.5 Allergy status to narcotic agent; Z88.8 Allergy status to other drugs, medicaments and biological substances; Z87.09 Personal history of other diseases of the respiratory system; Z87.01 Personal history of pneumonia (recurrent); Z77.22 Contact with and (suspected) exposure to environmental tobacco smoke (acute) (chronic); Z98.51 Tubal ligation status; Z98.890 Other specified postprocedural states
CPT/HCPCS: 36415; 80053; 81000; 82150; 83690; 85025

== ENCOUNTER → 2018-06-21 | Outpatient (CLI) | payer MEDICARE, MEDICAID ==
--- NOTE | 2018-06-21 12:50 | Diagnostic Imaging Report ---
INDICATION: Abdominal pain x1 week. TECHNIQUE: Abdominal series performed with a frontal chest radiograph and supine and upright abdominal films. FINDINGS: Heart and mediastinal silhouette are normal in appearance. The lungs appear clear. There is no pneumothorax or pleural fluid. There is no free intraperitoneal air. There is a hernia mesh device in the lower abdomen. The abdominal bowel gas pattern is unremarkable. There is no sign of obstruction or ileus. There is moderate stool throughout the colon. There are phleboliths in the pelvis. IMPRESSION: No sign of free air or bowel obstruction. Moderate stool throughout the colon. Postop changes with hernia mesh device over the abdomen. No acute process in the chest. Dictated by: Dictated on workstation # [id number]
== END ==
LOC: RAD FS 11:06
PROVIDERS: ATTEND Nurse Practitioner Family
DX: R10.31 Right lower quadrant pain (principal); Z96.89 Presence of other specified functional implants; Z98.890 Other specified postprocedural states
CPT/HCPCS: 74022

== ENCOUNTER 2018-08-10 05:42 | Outpatient (CLI) | payer MEDICARE, MEDICAID ==
[~2018-08-10] VITALS: Ht 167.6 cm; Wt 109.8 kg
[~2018-08-10 05:42] MED LIST changes: -FURO20TA4; +FURO20TA4 PO; -IBUP-1780; +IBUP-1780 PO
[2018-08-10] MEDS ORDERED: PRD20T PO (10:38)
[2018-08-10] MEDS ORDERED: NF-ESOM40C PO (10:38)
[2018-08-10] MEDS ORDERED: LOSA100T57 PO (10:38)
[2018-08-10] MEDS ORDERED: METO100T12 PO (10:38)
[2018-08-10] MEDS ORDERED: AZIT250T12 PO (10:38)
== END 2018-08-10 12:07 | disposition home or self-care (01) ==
LOC: PREOP 05:42
PROVIDERS: ATTEND Surgery
DX: Z01.818 Encounter for other preprocedural examination (principal)

== ENCOUNTER → 2018-08-14 | Outpatient (CLI) | payer MEDICARE, MEDICAID ==
[~2018-08-14] MED LIST changes: +AZIT250T12 PO; +LOSA100T57 PO; +METO100T12 PO; +NF-ESOM40C PO; +PRD20T PO
--- NOTE | 2018-08-14 11:31 | Diagnostic Imaging Report ---
INDICATION: Dog pulled patient into a wall, left-sided rib pain. TECHNIQUE: Five views of the left ribs were performed at 10:50 AM. CORRELATION STUDY: Chest of 06/21/2018. FINDINGS: The left lung is clear without evidence for infiltrate, pneumothorax, or significant effusion. No acute, displaced left-sided rib fracture. The visualized portions of the left shoulder appear unremarkable as well. There is either mild rotation or leftward scoliotic curvature of the thoracic spine with advanced degenerative changes including disc space narrowing and endplate osteophyte formation. IMPRESSION: Negative for acute displaced left rib fracture. Dictated by: Dictated on workstation # [id number]
== END ==
LOC: RAD FS 10:28
PROVIDERS: ATTEND Family Medicine
DX: R07.81 Pleurodynia (principal); W54.1XXA Struck by dog, initial encounter
CPT/HCPCS: 71100

== ENCOUNTER → 2019-02-14 | Outpatient (CLI) | payer MEDICARE, MEDICAID ==
--- NOTE | 2019-02-14 12:34 | Diagnostic Imaging Report ---
INDICATION: Cough. COMPARISON: December 31, 2017. TECHNIQUE: Two radiographs of the chest dated February 14, 2019. FINDINGS: The cardiac silhouette is within normal limits in size. No significant pulmonary vascular congestion. Low lung volumes with minimal left basilar interstitial opacities. The right lung is clear. No significant pleural effusion. No pneumothorax. Scattered osseous degenerative changes without acute osseous abnormality. IMPRESSION: Low lung volumes with minimal left basilar atelectasis and/or pneumonitis. Dictated by: Dictated on workstation # [id number]
== END ==
LOC: RAD 11:50
PROVIDERS: ATTEND Nurse Practitioner Family
DX: R05 Cough (principal)
CPT/HCPCS: 71046

== ENCOUNTER 2019-03-11 16:38 | Emergency (ER) | payer MEDICARE, MEDICAID ==
[~2019-03-11] VITALS: Ht 167.7 cm; Wt 115.9 kg
--- NOTE | 2019-03-11 17:08 | ED General ---
General Chief Complaint: Cough/Cold/Flu Symptoms Stated Complaint: COUGH Nursing Triage Note: PT TO TRIAGE WITH COMPLAINT OF COUGH AND CONCERN FOR PNEUMONIA. WAS SEEN BY DR PORTILLO A WEEK AGO AND DIAGNOSED WITH BRONCHITIS. 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 WENT TO WALK IN CLINIC THREE DAYS AGO AND HAD XRAYS TAKEN AND TOLD HAD LUNG INFECTION, BUT WAS NOT PRESCRIBED ANYTHING. Nursing Sepsis Screen: No Definite Risk Source of Information: Patient Exam Limitations: No Limitations History of Present Illness Date Seen by Provider: Mar 11, 2019 Time Seen by Provider: 17:07 Initial Comments To ER with concern for pneumonia, she's had 2 weeks of cough, was diagnosed initially with bronchitis but was unable to edge inker uppers the albuterol and Tessalon Perles, she's been taking kjxn-[id number]-avzerij cough medication without much improvement. Timing/Duration: 1-2 Days Severity: Moderate Associated Systoms: Cough Allergies and Home Medications Allergies Coded Allergies: hydrocortisone (Verified Allergy, Unknown, 04/21/16) oxycodone (Verified Allergy, Unknown, 09/16/17) ether (Verified Adverse Reaction, Unknown, 09/10/16) Home Medications Azithromycin 250 Mg Tablet, 250 MG PO DAILY, (Reported) Esomeprazole Magnesium 40 Mg Cap, 40 MG PO DAILY, (Reported) Furosemide 20 Mg Tablet, 20 MG PO DAILY, (Reported) Ibuprofen 800 Mg Tablet, 800 MG PO q6 PRN for PAIN-MILD, (Reported) Losartan Potassium 100 Mg Tablet, 100 MG PO DAILY, (Reported) Metoprolol Tartrate 100 Mg Tablet, 100 MG PO BID, (Reported) Prednisone 20 Mg Tab, 20 MG PO BID, (Reported) Patient Home Medication List Home Medication List Reviewed: Yes Review of Systems Review of Systems Constitutional: see HPI; No chills, No fever EENTM: see HPI Respiratory: see HPI, cough Cardiovascular: no symptoms reported Genitourinary: no symptoms reported Musculoskeletal: no symptoms reported Skin: no symptoms reported Psychiatric/Neurological: No Symptoms Reported Hematologic/Lymphatic: No Symptoms Reported Immunological/Allergic: no symptoms reported Past Pdmrugo-Tfyvyv-Gpdoki Hx Patient Social History Alcohol Use: Denies Use Recreational Drug Use: No Smoking Status: Never a Smoker 2nd Hand Smoke Exposure: No Recent Foreign Travel: No Contact w/Someone Who Travel: No Recent Infectious Disease Expo: No Recent Hopitalizations: No Physical Abuse: No Sexual Abuse: No Mistreated: No Fear: No Seasonal Allergies Seasonal Allergies: No Past Medical History Surgeries: Yes (HERNIA REPAIR, cyst removed from head) Abdominal, Tubal Ligation Respiratory: Yes Pneumonia, Chronic Bronchitis Currently Using CPAP: No Currently Using BIPAP: No Cardiac: Yes Hypertension Neurological: Yes Multiple Sclerosis 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 Genitourinary: Yes (MARIA M) Kidney Infection, UTI-Chronic Gastrointestinal: Yes Chronic Constipation Musculoskeletal: Yes (FLOATING DISK, BONES DETERIOATING ) Osteoporosis, Arthritis, Chronic Back Pain Endocrine: Yes Diabetes, Non-Insulin dep HEENT: No Cancer: No Psychosocial: No Integumentary: No Blood Disorders: No Family Medical History Cardiovascular disease 19 FATHER Diabetes mellitus 19 MOTHER G8 BROTHER FH: cancer 19 MOTHER Hypertension 19 MOTHER 19 FATHER G8 BROTHER Physical Exam Vital Signs Vital Signs - First Documented 03/11/19 16:52 Temp 36.5 Pulse 78 Resp 20 B/P (MAP) 154/103 (120) Pulse Ox 95 O2 Delivery Room Air Capillary Refill : Less Than 3 Seconds Height, Weight, BMI Height: 5'6.00" Weight: 242lbs. 0.0oz. 109.109575vn; 41.00 BMI Method:Stated General Appearance: No Apparent Distress, WD/WN Eyes: Bilateral Eye Normal Inspection, Bilateral Eye PERRL, Bilateral Eye EOMI HEENT: PERRL/EOMI, TMs Normal Neck: Full Range of Motion, Normal Inspection Respiratory: Normal Breath Sounds, No Accessory Muscle Use, No Respiratory Distress; No Crackles, No Wheezing Cardiovascular: Regular Rate, Rhythm, Normal Peripheral Pulses Gastrointestinal: Non Tender, Soft Neurologic/Psychiatric: Alert, Oriented x3 Skin: Normal Color, Warm/Dry Progress/Results/Core Measures Suspected Sepsis Recent Fever Within 48 Hours: No Infection Criteria Present: None New/Unexplained Altered Menta: No Sepsis Screen: No Definite Risk SIRS Temperature: Pulse: 78 Respiratory Rate: 20 Blood Pressure 154 /103 Mean: 120 Results/Orders My Orders Orders - HERMINIO SU APRN Chest Pa/Lat (2 View) (03/11/19 17:01) Vital Signs/I&O 03/11/19 16:52 Temp 36.5 Pulse 78 Resp 20 B/P (MAP) 154/103 (120) Pulse Ox 95 O2 Delivery Room Air Capillary Refill : Less Than 3 Seconds Blood Pressure Mean: 120 POS Departure Impression Primary Impression: Bronchitis Disposition: 01 HOME, SELF-CARE Condition: Stable Departure-Patient Inst. Decision time for Depature: 17:14 Referrals: KALA PORTILLO MD (PCP/Family) Primary Care Physician Patient Instructions: Acute Bronchitis, Adult (DC) Add. Discharge Instructions: 1. Cough medication as directed 2. Antibiotic as directed 3. Follow-up with your doctor next week All discharge instructions reviewed with patient and/or family. Voiced understanding. Scripts Acetaminophen with Codeine (Tylenol with Codeine #3 Tablet) 1 Each Tablet 1 EACH PO Q4H PRN for COUGH for 7 Days, #14 TAB Prov: HERMINIO SU PATTERN HAND 03/11/19 Cefuroxime Axetil (Cefuroxime) 250 Mg Tablet 250 MG PO BID, #14 TAB Prov: HERMINIO SU PATTERN HAND 03/11/19 HERMINIO SU PATTERN HAND Mar 11, 2019 17:08 POS
[2019-03-11] MEDS ORDERED: CEFU250T80 PO (17:16)
[2019-03-11] MEDS ORDERED: ACET-789 PO (17:16)
[2019-03-11 17:28] VITALS: BP 154/103
[2019-03-11] MEDS ORDERED: RX-ACETAMINOPHEN/CODEINE TAB PPK #4 PO SCH (17:30)
[2019-03-11] MEDS ORDERED: CEFDINIR 300 MG (OMNICEF) CAP PO ONE (17:30)
--- NOTE | 2019-03-11 17:54 | Diagnostic Imaging Report ---
HISTORY: Cough, shortness of breath, congestion TECHNIQUE: 2 views of the chest COMPARISON: 02/14/2019 FINDINGS: There is mild airspace opacity posteriorly, appears to be in the right lower lobe. This is best seen on the lateral view. There is no pleural effusion or pneumothorax. The cardiac silhouette is normal in size. IMPRESSION: 1. Airspace opacity appears to be in the right lower lobe on the lateral view, concerning for pneumonia in the appropriate clinical setting. Dictated by: Dictated on workstation # [id number]
== END 2019-03-11 17:29 | disposition home or self-care (01) ==
LOC: EDUNIT# 16:38 → ER 16:39
DX: J40 Bronchitis, not specified as acute or chronic (principal); I10 Essential (primary) hypertension; E11.9 Type 2 diabetes mellitus without complications; G35 Multiple sclerosis; Z87.440 Personal history of urinary (tract) infections; Z79.52 Long term (current) use of systemic steroids; Z88.8 Allergy status to other drugs, medicaments and biological substances; Z88.5 Allergy status to narcotic agent; Z98.51 Tubal ligation status; Z82.49 Family history of ischemic heart disease and other diseases of the circulatory system
CPT/HCPCS: 71046

== ENCOUNTER → 2019-06-01 | Outpatient (CLI) | payer MEDICARE, MEDICAID ==
[~2019-06-01] MED LIST changes: +ACET-789 PO; +CEFU250T80 PO; +MECL-172; -MECL12.579
--- NOTE | 2019-06-01 12:10 | Diagnostic Imaging Report ---
INDICATION: Cough and chest pain. TIME OF EXAM: 11:55 a.m. COMPARISON: Correlation is made with prior chest from 03/11/2019. FINDINGS: The heart size is normal. The pulmonary vascularity is unremarkable. The lungs are clear. No infiltrate, effusion or pneumothorax is detected. IMPRESSION: No acute cardiopulmonary process is detected. Dictated by: Dictated on workstation # [id number]
== END ==
LOC: RAD FS 11:45
PROVIDERS: ATTEND Family Medicine
DX: J06.9 Acute upper respiratory infection, unspecified (principal)
CPT/HCPCS: 71046

== ENCOUNTER → 2019-08-28 | Outpatient (CLI) | payer MEDICARE, MEDICAID ==
--- NOTE | 2019-08-28 14:44 | Diagnostic Imaging Report ---
INDICATION: Screening for osteoporosis. COMPARISON: None. FINDINGS: The bone mineral density of the hips and spine was measured. The T-score for the spine is 0.2. This value is within normal limits. The total T-score for the left hip is -1.4 and for the right hip -1.9. The T-score for the right femoral neck is -1.8. All of these findings indicate osteopenia. The T-score for the left femoral neck is -0.9. This value is at the lowest end of normal. AP Spine L1-L4: [BMD (g/cm2): 1.225] [T-Score: 0.2] [Z-Score: 0.7] [BMD Previous: NA] [BMD % Change: NA] LT Hip Neck: [BMD (g/cm2): 0.908] [T-Score: -0.9] [Z-Score: 0.0] LT Hip Total: [BMD (g/cm2):0.834] [T-Score:-1.4] [Z-Score: -0.7] [BMD Previous: NA] [BMD % Change: NA] RT Hip Neck: [BMD (g/cm2):0.784] [T-Score:-1.8] [Z-Score:-0.9] RT Hip Total: [BMD (g/cm2):0.769] [T-score:-1.9] [Z-Score:-1.2] [BMD Previous:NA] [BMD % Change:NA] *Indicates significant change from prior examination based on 95% confidence level. World Health Organization criteria for BMD interpretation classify patients as Normal (T-score at or above -1.0), Osteopenic (T-score between -1.0 and -2.5) or Osteoporotic (T-score at or below -2.5). LIMITATIONS AND MODIFICATION: None. FRACTURE RISK (FRAX SCORE): The ten year probability of (%): Major Osteoporotic Fracture: [9.9] Hip Fracture: [1.7] IMPRESSION: 1. The bone mineral density of the spine and of the left femoral neck is within normal limits. 2. There is osteopenia of the hips and the right femoral neck. 3. See below National Osteoporosis Foundation guidelines on when to potentially initiate pharmacologic therapy. Based on the National Osteoporosis Foundation Guidelines, pharmacologic treatment should be initiated in any of the following, unless clinical conditions suggest otherwise: * Any patient with prior fragility fracture of the hip or vertebrae. A spine fracture indicates 5X risk for subsequent spine fracture and 2X risk for subsequent hip fracture. * Osteoporosis (T-score <-2.5). * Postmenopausal women and men age 50 and older with low bone mass/osteopenia (T-score between -1.0 and -2.5) by DXA and 10-year major osteoporotic fracture greater than 20% or a 10-year probability of hip fracture greater than 3%. These fracture risks are supplied above in the FRAX score, if applicable. * Clinician judgement and/or patient preferences may indicate treatment for people with 10-year fracture probabilities above or below these levels. Dictated by: Dictated on workstation # [id number]
== END ==
LOC: RAD 12:23
PROVIDERS: ATTEND Nurse Practitioner
DX: Z13.820 Encounter for screening for osteoporosis (principal); Z00.00 Encounter for general adult medical examination without abnormal findings; M85.89 Other specified disorders of bone density and structure, multiple sites
CPT/HCPCS: 77080

== ENCOUNTER 2019-09-02 13:59 | Emergency (ER) | payer MEDICARE, MEDICAID ==
[~2019-09-02] VITALS: Ht 168 cm; Wt 125.0 kg
--- OUTSIDE RECORDS SUMMARY | 2019-09-02 14:05 | XMS REPORT | Continuity of Care Document ---
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 4.35-5.85 Venous blood hemoglobin measurement (mass/volume) 14.1 g/dL 11.5-16.0 Blood hematocrit (volume fraction) 43 % 35-52 Automated erythrocyte mean corpuscular volume 86 [ foz_us] 80-99 Automated erythrocyte mean corpuscular h emoglobin (mass per erythrocyte) 28 pg 25-34 Automated erythrocyte mean corpuscular h emoglobin concentration measurement (mass/volume) 33 g/dL 32-36 Automated erythrocyte distribution width ratio 14. 3 % 10.0- 14.5 Automated blood platelet count (count/volume) 189 10*3/uL 130-400 Automated blood platelet mean volume measurement 12.1 [foz_us] 7.4-10.4 Automated blood neutrophils/100 leukocytes 66 % 42-75 Automated blood lymphocytes/100 leukocytes 26 % 12-44 Blood monocytes/100 leukocytes 6 % 0-12 Automated blood eosinophils/100 leukocytes 2 % 0-10 Automated blood basophils/100 leukocytes 0 % 0-10 Blood neutrophils automated count (number/volume) 5.6 10*3 1.8-7.8 Blood lymphocytes automated count (number/volume) 2.2 10*3 1.0-4.0 Blood monocytes automated count (number/volume) 0. 5 10*3 0.0-1.0 Automated eosinophil count 0.1 10*3/uL 0 .0-0.3 Automated blood basophil count (count/volume) 0.0 10*3/uL 0.0-0.1 Comprehensive metabolic panel - 10/15/16 20:41 Serum or plasma sodium measurement (moles/volume) 142 mmol/L 135-145 Serum or plasma potassium measurement (moles/volume) 3.8 mmol/L 3.6-5.0 Serum or plasma chloride measurement (moles/volume) 109 mmol/L 98-107 Carbon dioxide 18 mmol/L 21-32 Serum or plasma anion gap determination (moles/volume) 15 mmol/L 5-14 Serum or plasma urea nitrogen measurement (mass/volume ) 17 mg/dL 7-18 Serum or plasma creatinine measurement (mass/volume) 0.67 mg/dL 0.60-1.30 Serum or plasma urea nitrogen/creatinine mass ratio 25 NRG Serum or plasma creatinine measurement w ith calculation of estimated glomerular filtration rate > NRG Serum or plasma glucose measurement (mass/volume) 116 mg/dL 70-105 Serum or plasma calcium measurement (mass/volume) 8.8 mg/dL 8.5-10.1 Serum or plasma total bilirubin measurement (mass/volu me) 0.5 mg/dL 0.1-1.0 Serum or plasma alkaline phosphatase andreia surement (enzymatic activity/volume) 79 U/L 40-136 Serum or plasma aspartate aminotransfera se measurement (enzymatic activity/volume) 16 U/L 5-34 Serum or plasma alanine aminotransferase measurement (enzymatic activity/volume) 18 U/L 0-55 Serum or plasma protein measurement (mass/volume) 7.3 g/dL 6.4-8.2 Serum or plasma albumin measurement (mass/volume) 4.2 g/dL 3.2-4.5 Complete blood count (CBC) with automate d white blood cell (WBC) differential - 09/16/17 15:46 Blood leukocytes automated count (number/volume) 8.1 10*3/uL 4.3-11.0 Blood erythrocytes automated count (number/volume) 4.90 10*6/uL 4.35-5.85 Venous blood hemoglobin measurement (mass/volume) 14.1 g/dL 11.5-16.0 Blood hematocrit (volume fraction) 42 % 35-52 Automated erythrocyte mean corpuscular volume 85 [ foz_us] 80-99 Automated erythrocyte mean corpuscular h emoglobin (mass per erythrocyte) 29 pg 25-34 Automated erythrocyte mean corpuscular h emoglobin concentration measurement (mass/volume) 34 g/dL 32-36 Automated erythrocyte distribution width ratio 14. 4 % 10.0- 14.5 Automated blood platelet count (count/volume) 180 10*3/uL 130-400 Automated blood platelet mean volume measurement 11.8 [foz_us] 7.4-10.4 Automated blood neutrophils/100 leukocytes 75 % 42-75 Automated blood lymphocytes/100 leukocytes 19 % 12-44 Blood monocytes/100 leukocytes 6 % 0-12 Automated blood eosinophils/100 leukocytes 0 % 0-10 Automated blood basophils/100 leukocytes 0 % 0-10 Blood neutrophils automated count (number/volume) 6.1 10*3 1.8-7.8 Blood lymphocytes automated count (number/volume) 1.5 10*3 1.0-4.0 Blood monocytes automated count (number/volume) 0. 5 10*3 0.0-1.0 Automated eosinophil count 0.0 10*3/uL 0 .0-0.3 Automated blood basophil count (count/volume) 0.0 10*3/uL 0.0-0.1 Comprehensive metabolic panel - 09/16/17 15:46 Serum or plasma sodium measurement (moles/volume) 142 mmol/L 135-145 Serum or plasma potassium measurement (moles/volume) 3.9 mmol/L 3.6-5.0 Serum or plasma chloride measurement (moles/volume) 105 mmol/L 98-107 Carbon dioxide 27 mmol/L 21-32 Serum or plasma anion gap determination (moles/volume) 10 mmol/L 5-14 Serum or plasma urea nitrogen measurement (mass/volume ) 13 mg/dL 7-18 Serum or plasma creatinine measurement (mass/volume) 0.79 mg/dL 0.60-1.30 Serum or plasma urea nitrogen/creatinine mass ratio 16 NRG Serum or plasma creatinine measurement w ith calculation of estimated glomerular filtration rate > NRG Serum or plasma glucose measurement (mass/volume) 79 mg/dL 70-105 Serum or plasma calcium measurement (mass/volume) 9.2 mg/dL 8.5-10.1 Serum or plasma total bilirubin measurement (mass/volu me) 0.5 mg/dL 0.1-1.0 Serum or plasma alkaline phosphatase andreia surement (enzymatic activity/volume) 61 U/L 40-136 Serum or plasma aspartate aminotransfera se measurement (enzymatic activity/volume) 16 U/L 5-34 Serum or plasma alanine aminotransferase measurement (enzymatic activity/volume) 14 U/L 0-55 Serum or plasma protein measurement (mass/volume) 7.0 g/dL 6.4-8.2 Serum or plasma albumin measurement (mass/volume) 4.2 g/dL 3.2-4.5 Complete urinalysis with reflex to cultu re - 06/19/18 14:15 Urine color determination YELLOW NRG Urine clarity determination SLIGHTLY CLOUDY NRG Urine pH measurement by test strip 5 5-9 Specific gravity of urine by test strip 1.020 1.016-1.022 Urine protein assay by test strip, semi-quantitative 2+ NEGATIVE Urine glucose detection by automated test strip NE GATIVE NEGATIVE Erythrocytes detection in urine sediment by light micr oscopy NEGATIVE NEGATIVE Urine ketones detection by automated test strip NE GATIVE NEGATIVE Urine nitrite detection by test strip NEGATIVE NEGATIVE Urine total bilirubin detection by test strip NEGA TIVE NEGATIVE Urine urobilinogen measurement by automated test strip (mass/volume) NORMAL NORMAL Urine leukocyte esterase detection by dipstick 1+ NEGATIVE Automated urine sediment erythrocyte cou nt by microscopy (number/high power field) NONE NRG Automated urine sediment leukocyte count by microscopy (number/high power field) [HPF] NRG Bacteria detection in urine sediment by light microsco py TRACE NRG Squamous epithelial cells detection in u rine sediment by light microscopy 5-10 NRG Crystals detection in urine sediment by light microsco py NONE NRG Casts detection in urine sediment by light microscopy NONE NRG Mucus detection in urine sediment by light microscopy SMALL NRG Complete urinalysis with reflex to culture NO NRG Complete blood count (CBC) with automate d white blood cell (WBC) differential - 06/19/18 14:20 Blood leukocytes automated count (number/volume) 7.2 10*3/uL 4.3-11.0 Blood erythrocytes automated count (number/volume) 5.06 10*6/uL 4.35-5.85 Venous blood hemoglobin measurement (mass/volume) 14.4 g/dL 11.5-16.0 Blood hematocrit (volume fraction) 44 % 35-52 Automated erythrocyte mean corpuscular volume 86 [ foz_us] 80-99 Automated erythrocyte mean corpuscular h emoglobin (mass per erythrocyte) 29 pg 25-34 Automated erythrocyte mean corpuscular h emoglobin concentration measurement (mass/volume) 33 g/dL 32-36 Automated erythrocyte distribution width ratio 14. 4 % 10.0- 14.5 Automated blood platelet count (count/volume) 166 10*3/uL 130-400 Automated blood platelet mean volume measurement 11.7 [foz_us] 7.4-10.4 Automated blood neutrophils/100 leukocytes 70 % 42-75 Automated blood lymphocytes/100 leukocytes 23 % 12-44 Blood monocytes/100 leukocytes 6 % 0-12 Automated blood eosinophils/100 leukocytes 1 % 0-10 Automated blood basophils/100 leukocytes 0 % 0-10 Blood neutrophils automated count (number/volume) 5.0 10*3 1.8-7.8 Blood lymphocytes automated count (number/volume) 1.6 10*3 1.0-4.0 Blood monocytes automated count (number/volume) 0. 4 10*3 0.0-1.0 Automated eosinophil count 0.1 10*3/uL 0 .0-0.3 Automated blood basophil count (count/volume) 0.0 10*3/uL 0.0-0.1 Comprehensive metabolic panel - 06/19/18 14:20 Serum or plasma sodium measurement (moles/volume) 139 mmol/L 135-145 Serum or plasma potassium measurement (moles/volume) 3.7 mmol/L 3.6-5.0 Serum or plasma chloride measurement (moles/volume) 103 mmol/L 98-107 Carbon dioxide 27 mmol/L 21-32 Serum or plasma anion gap determination (moles/volume) 9 mmol/L 5-14 Serum or plasma urea nitrogen measurement (mass/volume ) 14 mg/dL 7-18 Serum or plasma creatinine measurement (mass/volume) 0.72 mg/dL 0.60-1.30 Serum or plasma urea nitrogen/creatinine mass ratio 19 NRG Serum or plasma creatinine measurement w ith calculation of estimated glomerular filtration rate > NRG Serum or plasma glucose measurement (mass/volume) 103 mg/dL 70-105 Serum or plasma calcium measurement (mass/volume) 9.2 mg/dL 8.5-10.1 Serum or plasma total bilirubin measurement (mass/volu me) 0.6 mg/dL 0.1-1.0 Serum or plasma alkaline phosphatase adnreia surement (enzymatic activity/volume) 72 U/L 40-136 Serum or plasma aspartate aminotransfera se measurement (enzymatic activity/volume) 18 U/L 5-34 Serum or plasma alanine aminotransferase measurement (enzymatic activity/volume) 20 U/L 0-55 Serum or plasma protein measurement (mass/volume) 7.4 g/dL 6.4-8.2 Serum or plasma albumin measurement (mass/volume) 4.4 g/dL 3.2-4.5 CALCIUM CORRECTED 8.9 mg/dL 8.5-10.1 Serum or plasma amylase measurement (enz ymatic activity/volume) - 06/19/18 14:20 Serum or plasma amylase measurement (enzymatic activit y/volume) 38 U/L 25-125 Lipase - 06/19/18 14:20 Lipase 34 U/L 8-78 [facility] - 06/21/18 11:22 GLUCOSE 85 mg/dL 65-99 UREA NITROGEN (BUN) 14 mg/dL 7-25 CREATININE 0.53 mg/dL 0.50-0.99 eGFR NON-AFR. LATVIAN 97 mL/min/1.73m2 > OR = 60 eGFR 112 mL/min/1.73m2 > OR = 60 BUN/CREATININE RATIO NOT APPLICABLE (calc) 6-22 SODIUM 139 mmol/L 135-146 POTASSIUM 4.2 mmol/L 3.5-5.3 CHLORIDE 104 mmol/L 98-110 CARBON DIOXIDE 27 mmol/L 20-32 CALCIUM 9.5 mg/dL 8.6-10.4 PROTEIN, TOTAL 7.0 g/dL 6.1-8.1 ALBUMIN 4.4 g/dL 3.6-5.1 GLOBULIN 2.6 g/dL (calc) 1.9-3.7 ALBUMIN/GLOBULIN RATIO 1.7 (calc) 1.0-2. 5 BILIRUBIN, TOTAL 0.7 mg/dL 0.2-1.2 ALKALINE PHOSPHATASE 68 U/L 33-130 AST 17 U/L 10-35 ALT 16 U/L 6- [facility] 10/13/18 09:38 GLUCOSE 89 mg/dL 65-139 UREA NITROGEN (BUN) 14 mg/dL 7-25 CREATININE 0.68 mg/dL 0.50-0.99 eGFR NON-AFR. LATVIAN 89 mL/min/1.73m2 > OR = 60 eGFR 103 mL/min/1.73m2 > OR = 60 BUN/CREATININE RATIO NOT APPLICABLE (calc) 6-22 SODIUM 142 mmol/L 135-146 POTASSIUM 4.1 mmol/L 3.5-5.3 CHLORIDE 106 mmol/L 98-110 CARBON DIOXIDE 25 mmol/L 20-32 CALCIUM 9.3 mg/dL 8.6-10.4 PROTEIN, TOTAL 7.3 g/dL 6.1-8.1 ALBUMIN 4.6 g/dL 3.6-5.1 GLOBULIN 2.7 g/dL (calc) 1.9-3.7 ALBUMIN/GLOBULIN RATIO 1.7 (calc) 1.0-2. 5 BILIRUBIN, TOTAL 0.5 mg/dL 0.2-1.2 ALKALINE PHOSPHATASE 69 U/L 33-130 AST 15 U/L 10-35 ALT 12 U/L 09-23 TSH - 01/23/19 11:43 TSH 1.57 mIU/L 0.40-4.50 BNP - 01/23/19 11:43 B TYPE NATRIURETIC PEPTIDE (BNP) 18 pg/mL <100 CULTURE, URINE - 07/30/19 12:41 CULTURE, URINE, ROUTINE SEE NOTE NRG CMP - 08/16/19 10:39 GLUCOSE 92 mg/dL 65-99 UREA NITROGEN (BUN) 11 mg/dL 7-25 CREATININE 0.73 mg/dL 0.60-0.93 eGFR NON-AFR. LATVIAN 83 mL/min/1.73m2 > OR = 60 eGFR 97 mL/min/1.73m2 > OR = 60 BUN/CREATININE RATIO NOT APPLICABLE (calc) 6-22 SODIUM 141 mmol/L 135-146 POTASSIUM 3.7 mmol/L 3.5-5.3 CHLORIDE 105 mmol/L 98-110 CARBON DIOXIDE 27 mmol/L 20-32 CALCIUM 9.2 mg/dL 8.6-10.4 PROTEIN, TOTAL 7.1 g/dL 6.1-8.1 ALBUMIN 4.4 g/dL 3.6-5.1 GLOBULIN 2.7 g/dL (calc) 1.9-3.7 ALBUMIN/GLOBULIN RATIO 1.6 (calc) 1.0-2. 5 BILIRUBIN, TOTAL 0.7 mg/dL 0.2-1.2 ALKALINE PHOSPHATASE 58 U/L 37-153 AST 17 U/L 10-35 ALT 16 U/L 09-23 CBC - 08/16/19 10:39 WHITE BLOOD CELL COUNT 6.9 Thousand/uL 3 .8-10.8 RED BLOOD CELL COUNT 5.25 Million/uL 3.8 0-5.10 HEMOGLOBIN 14.8 g/dL 11.7-15.5 HEMATOCRIT 46.4 % 35.0-45.0 MCV 88.4 fL 80.0-100.0 MCH 28.2 pg 27.0-33.0 MCHC 31.9 g/dL 32.0-36.0 RDW 13.8 % 11.0-15.0 PLATELET COUNT 199 Thousand/uL 140-400 MPV 12.5 fL 7.5-12.5 ABSOLUTE NEUTROPHILS 5168 cells/uL 1500- 7800 ABSOLUTE LYMPHOCYTES 1235 cells/uL 850-3 900 ABSOLUTE MONOCYTES 455 cells/uL 200-950 ABSOLUTE EOSINOPHILS 0 cells/uL 15-500 ABSOLUTE BASOPHILS 41 cells/uL 0-200 NEUTROPHILS 74.9 % NRG LYMPHOCYTES 17.9 % NRG MONOCYTES 6.6 % NRG EOSINOPHILS 0.0 % NRG BASOPHILS 0.6 % NRG BNP - 08/16/19 10:39 B TYPE NATRIURETIC PEPTIDE (BNP) 32 pg/mL <100 A1C - 08/21/19 13:23 HEMOGLOBIN A1c 5.5 % of total Hgb <5.7 Encounters ACCT No. Visit Date/Time Discharge Status Pt. Type Provider Facility Loc./Unit Complaint [id number] 08/21/2019 10:20:00 08/21/2019 23:59: 59 CLS Outpatient [facility]ALA [facility] [id number] 08/21/2019 10:20:00 Document Registration [id number] 08/16/2019 09:40:00 Document Registration [id number] 07/30/2019 12:00:00 Document Registration [id number] 01/23/2019 11:15:00 Document Registration [id number] 10/13/2018 09:00:00 Document Registration [id number] 06/21/2018 10:20:00 Document Registration [id number] 08/28/2019 12:23:00 23:59:59 CLS Outpatient SEBASTIAN REYEZ EDITOR [facility] RAD SCREENING FOR O STEOPOROSIS Z13.820 [id number] 06/01/2019 11:45:00 23:59:59 CLS Outpatient SELF KALA SMITH [facility] RAD FS J06.9 [id number] 03/11/2019 16:39:00 17:29:00 DIS Emergency HERMINIO SU APRN [facility] ER COUGH [id number] 02/14/2019 11:50:00 23:59:59 CLS Outpatient DUNIA MAYA [facility] RAD R05 [id number] 08/17/2018 11:45:00 23:59:59 CLS Preadmit SHAWANDA SMITH, PAOLA Gregorio a [facility] SDC GANGLION CYST LEFT WRIS T [id number] 08/14/2018 10:28:00 23:59:59 CLS Outpatient SELF KALA SMITH [facility] RAD FS R07.81 [id number] 08/10/2018 05:42:00 12:07:00 DIS Outpatient PAOLA MAYBERRY MD [facility] PREOP EXCISION OF GANGLION CY ST LEFT WRIST [id number] 08/04/2018 08:16:00 08:16:00 CAN Preadmit DHARMESH OAKES APRN [facility] WOUNDCARE [id number] 06/21/2018 11:06:00 23:59:59 CLS Outpatient NOAM ASIF [facility] RAD FS R10.31 [id number] 06/19/2018 13:39:00 15:13:00 DIS Emergency MYKEL LEMUS [facility] ER PAIN IN LOWER BACK, NEE DS APPENDIX CHECKED [id number] 01/11/2018 17:18:00 18:53:00 DIS Emergency HERMINIO SU APRN [facility] ER FALL ON LEFT SIDE PAIN [id number] 12/31/2017 13:25:00 14:32:00 DIS Emergency SHEILA WRIGHT MD [facility] ER LEAKAGE IN HEAR T PER HER DRBILAT ARM SWELLING [id number] 09/16/2017 14:25:00 16:49:00 DIS Emergency SHEILA WRIGHT MD [facility] ER SHARP PAIN IN H EAD [id number] 04/25/2017 15:52:00 018 16:45:00 DIS Emergency HERMINIO SU APRN [facility] ER ITCHY RED BUMPS ON ARMS [id number] 11/08/2016 14:52:00 23:59:59 CLS Preadmit SELF KALA SMITH [facility] RAD SCREENING [id number] 10/15/2016 20:04:00 017 22:18:00 DIS Emergency HERMINIO SU EDITOR [facility] ER BILAT ARM PAIN [id number] 09/10/2016 22:35:00 017 00:02:00 DIS Emergency ADRIANA SMITH, SHEILA Palomares [facility] ER RT SIDED BREAST PAIN [id number] 06/08/2016 16:20:00 017 23:59:59 CLS Outpatient NILO BOWIE EDITOR [facility] RAD RIB PAIN ON LT SIDE [id number] 05/24/2016 14:14:00 017 16:06:00 DIS Emergency HERMINIO SU EDITOR [facility] ER LEFT RIB/BREAST PAIN [id number] 04/21/2016 09:10:00 017 10:21:00 DIS Emergency VALDEMAR NAPIER DO [facility] ER FALL/DIZZINESS COUGH/CH EST CONGESTION
--- OUTSIDE RECORDS SUMMARY | 2019-09-02 14:05 | XMS REPORT ---
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 Role Phone HELGA ASIF Unavailable PROBLEMS Type Condition ICD9-CM Code NTY28-US Code Onset Dates Condition S tatus SNOMED Code Problem Asthma J45.909 Active 873818522 Problem Gait instability R26.81 Active 394 909186 Problem Falls frequently R29.6 Active 279 920652 Problem Arthritis M19.90 Active 4018910 Problem BMI 40.0-44.9, adult Z68.41 Active 792981441 Problem Prediabetes R73.09 Active 0397623 Problem Morbid obesity E66.01 Active 27113 6002 Problem GERD (gastroesophageal reflux disease) K21.9 Active 843603275 Problem Essential (primary) hypertension I10 Active 84686790 Problem Simple chronic bronchitis J41.0 Acti ve 73487084 Problem Chronic bronchitis J42 Active 6 9278319 Problem MS (multiple sclerosis) G35 Active 18156185 ALLERGIES Substance Reaction Event Type Date Status HYDROcodone Bitartrate ER hives Drug Allergy May, Ac tive ENCOUNTERS Encounter Location Date Diagnosis [address] [place] [address] Apr, [address] [place] [address] 27 Mar, 2019 Essential (primary) hyperten marika I10 ; BMI 40.0-44.9, adult Z68.41 and Morbid obesity E66.[address] [place] [address] 15 Mar, 2019 Blister T14.8XXA [address] [place] [address] Mar, [address] [place] [address] Feb, Essential (primary) hyperten marika I10 and Acute URI J06.9 [facility] [address] [facility] [id number] [address] [place] [address] Feb, Simple chronic bronchitis J4 1.0 [address] [place] [address] Feb, Essential (primary) hyperten marika I10 [address] [place] [address] Feb, [address] [place] [address] Dec, Colon cancer screening Z12.1 1 ; Screening mammogram, encounter for Z12.31 ; Essential (primary) hypertension I10 ; Bilateral lower extremity edema R60.0 and Encounter for immunization Z23 [address] [place] [address] Dec, Essential (primary) hyperten marika I10 ; MS (multiple sclerosis) G35 ; Falls frequently R29.6 ; Gait instability R26.81 ; Localized edema R60.0 ; Arm pain, left M79.602 and AK (actinic keratosis) L57.0 [facility] [address] [facility] [id number] [address] [place] [address] Oct, Dermatitis L30.9 ; Right noe tis media, unspecified otitis media type H66.91 and Pilar cyst L72.11 [address] [place] [address] Sep, [address] [place] [address] Sep, Simple chronic bronchitis J4 1.0 and Morbid obesity E66.01 [address] [place] [address] Sep, [address] [place] [address] July, Acute bronchitis due to Myco plasma pneumoniae J20.0 [address] [place] [address] July, Rib pain on left side R07.81 ; Acute bronchitis due to Mycoplasma pneumoniae J20.0 and Morbid obesity E66.01 [address] [address] July, [facility] [address] [facility] [id number] [address] [place] [address] July, Acute URI J06.9 ; UTI sympto ms R39.9 and Morbid obesity E66.01 [address] [place] [address] July, Essential (primary) hyperten marika I10 ; Localized edema R60.0 ; Gait instability R26.81 ; Falls frequently R29.6 ; Morbid obesity E66.01 and Ganglion cyst M67.40 [facility] [address] [id number] [place] [address] Jun, [address] [place] [address] May, Right lower quadrant abdomin al pain R10.31 and Morbid obesity E66.01 [facility] [address] [facility] [id number] [address] [place] [address] Apr, Right flank pain R10.9 ; Sandor g-induced constipation K59.03 and BMI 40.0-44.9, adult Z68.41 [address] [address] Apr, [address] [place] [address] Apr, [address] [place] [address] Apr, [facility] [address] [facility] [id number] [address] [place] [address] Aug, Acute middle ear effusion, r ight H65.191 and Bilateral lower extremity edema R60.0 [facility] [address] [facility] [id number] [place] [address] Nov, Conjunctivitis of left eye, unspecified conjunctivitis type H10.9 [facility] [address] [facility] [id number] [place] [address] Mar, Arthritis M19.90 ; GERD (gastroesophagea l reflux disease) K21.9 ; Prediabetes R73.09 ; Weight gain R63.5 and Asthma J45.909 IMMUNIZATIONS No Known Immunizations SOCIAL HISTORY Never Assessed REASON FOR VISIT Abdominal pain Rt side comes and goes.KCjeannette HUBBARD PLAN OF CARE Activity Details Follow Up prn Reason: VITAL SIGNS Height 64 in 2018-06-21 Weight 242 lbs 2018-06-21 Temperature 97.1 degrees Fahrenheit 2018-06-21 Heart Rate 63 bpm 2018-06-21 Respiratory Rate 18 2018-06-21 BMI 41.53 kg/m2 2018-06-21 Blood pressure systolic 174 mmHg 2018-06-21 Blood pressure diastolic 94 mmHg 2018-06-21 MEDICATIONS Medication Instructions Dosage Frequency Start Date End Date Duration S tatus PEG 3350 - Orally Once a day 1 cap full 24h Apr, 30 day(s) Active Hydrocodone-Acetaminophen 10-325 MG Orally every 8 hours prn 1 t ablet as needed Apr, 30 days Active Omeprazole 40 MG Orally Once a day 1 capsule 24h Active Losartan Potassium 100 MG Orally Once a day 1 tablet 24h Active Hydrochlorothiazide 25 MG Orally Once a day 1 tablet 24h Active Valtrex 1000 mg Orally 3 times a day 1 tablet 8h Active Lopressor 50 MG Orally Twice a day 1 tablet 12h Active Albuterol Sulfate (2.5 MG/3ML) 0.083% Inhalation Three times a day 3 m l 8h Active Advair Diskus 250-50 MCG/DOSE Active [place] 5-325 MG Orally every 6 hrs 1 tablet as needed 6h Active Alprazolam 0.5 MG Orally Three times a day 1 tablet 8h Active Flonase 50 MCG/ACT Nasally Once a day 1 spray in each nostril 24h Aug, 30 day(s) Active RESULTS No Results PROCEDURES Procedure Date Ordered Result Body Site [facility] VISIT ESTABLISHED PATIENT June 21, 2018 ANITA [place]* June 21, 2018 [facility] 2018 INSTRUCTIONS MEDICATIONS ADMINISTERED No Known Medications MEDICAL (GENERAL) HISTORY Type Description Date Medical History Essential (primary) hypertension Medical History Prediabetes Medical History GERD (gastroesophageal reflux disease) Medical History Asthma Medical History MS (multiple sclerosis) Medical History Chronic bronchitis Surgical History tubal ligation Surgical History hernia repair Surgical History fatty tumor taken off Hospitalization [facility] [place] pain in the h ead 09/16/17
--- NOTE | 2019-09-02 14:45 | ED Back Pain ---
General Chief Complaint: Back Problems Stated Complaint: FALL/NECK AND BACK PAIN Nursing Triage Note: THE PT IS AMBULATORY TO THE ROOM USING A WALKER. THE PT IS CAOX4. NO DISTRESS IS SEEN ON ARRIVAL. LOC IS NORMAL FOR THE PT. THE PT FELL FROM A CHAIR TO THE FLOOR 2 DAY'S AGO. Nursing Sepsis Screen: No Definite Risk History of Present Illness Date Seen by Provider: Sep 02, 2019 Time Seen by Provider: 14:30 Initial Comments 69 year old female reports that she was attempting to sit in a walker with chair, 2 days ago. Denies hitting her head, LOC or head pain. Complains of pain in the C and T spine. She does not take anticoagulants. She denies any neurological deficits in her upper or lower extremities. She has been able to continue with her normal daily activities, she is using a different walker. Location: C-Spine, T-Spine Timing/Duration: 2-3 Days Severity: Mild Pain/Injury Location: None Allergies and Home Medications Allergies Coded Allergies: hydrocortisone (Verified Allergy, Unknown, 04/21/16) oxycodone (Verified Allergy, Unknown, 09/16/17) ether (Verified Adverse Reaction, Unknown, 09/10/16) Home Medications Acetaminophen with Codeine 1 Each Tablet, 1 EACH PO Q4H PRN for COUGH Prescribed by: HERMINIO SU on 03/11/191715 Azithromycin 250 Mg Tablet, 250 MG PO DAILY, (Reported) Cefuroxime Axetil 250 Mg Tablet, 250 MG PO BID Prescribed by: HERMINIO SU on 03/11/191715 Esomeprazole Magnesium 40 Mg Cap, 40 MG PO DAILY, (Reported) Furosemide 20 Mg Tablet, 20 MG PO DAILY, (Reported) Ibuprofen 800 Mg Tablet, 800 MG PO q6 PRN for PAIN-MILD, (Reported) Losartan Potassium 100 Mg Tablet, 100 MG PO DAILY, (Reported) Metoprolol Tartrate 100 Mg Tablet, 100 MG PO BID, (Reported) Prednisone 20 Mg Tab, 20 MG PO BID, (Reported) Patient Home Medication List Home Medication List Reviewed: Yes Review of Systems Constitutional: no symptoms reported EENTM: see HPI, no symptoms reported; No blurred vision, No double vision, No e ye pain, No vision loss, No dental problems Respiratory: no symptoms reported, see HPI Cardiovascular: see HPI Gastrointestinal: no symptoms reported, see HPI Genitourinary: no symptoms reported, see HPI Musculoskeletal: see HPI, back pain, neck pain All Other Systems Reviewed Negative Unless Noted: Yes Past Lkzdqhn-Kykbza-Wptevr Hx Past Med/Social Hx: Reviewed Nursing Past Med/Soc Hx Patient Social History 2nd Hand Smoke Exposure: No Recent Foreign Travel: No Contact w/Someone Who Travel: No Recent Infectious Disease Expo: No Recent Hopitalizations: No Physical Abuse: No Sexual Abuse: No Mistreated: No Fear: No Seasonal Allergies Seasonal Allergies: No Past Medical History Surgeries: Yes (HERNIA REPAIR, cyst removed from head) Abdominal, Tubal Ligation Respiratory: Yes Pneumonia, Chronic Bronchitis Currently Using CPAP: No Currently Using BIPAP: No Cardiac: Yes Hypertension Neurological: Yes Multiple Sclerosis 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 Disorders: 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) History: Menopausal Genitourinary: Yes (MARIA M) Kidney Infection, UTI-Chronic Gastrointestinal: Yes Chronic Constipation Musculoskeletal: Yes (FLOATING DISK, BONES DETERIOATING ) Osteoporosis, Arthritis, Chronic Back Pain Endocrine: Yes Diabetes, Non-Insulin dep HEENT: No Cancer: No Psychosocial: No Integumentary: No Blood Disorders: No Family Medical History Cardiovascular disease 19 FATHER Diabetes mellitus 19 MOTHER G8 BROTHER FH: cancer 19 MOTHER Hypertension 19 MOTHER 19 FATHER G8 BROTHER Physical Exam Vital Signs Vital Signs - First Documented 09/02/19 14:24 Temp 36.8 Pulse 80 Resp 18 B/P (MAP) 160/90 (113) Pulse Ox 96 Capillary Refill : Less Than 3 Seconds Height, Weight, BMI Height: 5'6.00" Weight: 242lbs. 0.0oz. 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 Date: September 02, 2019. Indication: 69-year-old female, fall from wheelchair. Neck and upper back pain. Comparison: CT head and cervical spinal January 11, 2018. Technique: Axial CT images of the cervical spine were obtained without contrast. Coronal and sagittal reformats were obtained and provided. Axial CT images of the thoracic spine were obtained. Coronal and sagittal reformats were obtained and provided. All CT scans use one or more of the following dose optimizing techniques: automated exposure control, MA and/or KvP adjustment based on a patient size and exam type, or iterative reconstruction. Findings: There is no identified facet joint subluxation or dislocation. There are advanced left facet degenerative changes at C2-C3, C3-C4 and moderate facet degenerative changes on the left at C6-C7. There is no asymmetric widening of the cervical disc spaces. There is no prominent prevertebral soft tissue swelling. There do appear to be posterior disc osteophyte complexes present at C4-C5 and C6-C7. There is moderate disc height loss at C6-C7. CT is limited for assessment of disc pathology as well as additional nonbloody causes of pathology in the spinal canal. There is no identified acute fracture of the cervical spine. There is a hypoplastic right posterior arch of C1. There are carotid vascular calcifications. There is no identified acute fracture or malalignment of the thoracic spine. There are multilevel mild disc degenerative changes of the thoracic spine. The visualized portions of the lungs are grossly clear. There is a low-attenuation right adrenal nodule on coronal image 25 measuring 1.8 cm in size with internal attenuation diagnostic for an adrenal adenoma. Impression: 1. No identified acute fracture of the cervical spine or thoracic spine. 2. Multilevel degenerative related changes of the cervical and thoracic spine. Dictated on workstation # [id number] Dict: 09/02/19 1512 Trans: 09/02/19 1544 [facility] [id number] Interpreted by: HAYDEE ZAMORA MD Electronically signed by: Reviewed: Reviewed by Me Departure Impression Primary Impression: Fall Qualified Codes: W19.XXXA - Unspecified fall, initial encounter Additional Impressions: DDD (degenerative disc disease), thoracic DDD (degenerative disc disease), cervical Disposition: 01 HOME, SELF-CARE Condition: Improved Departure-Patient Inst. Decision time for Depature: 15:40 Referrals: KALA PORTILLO MD (PCP/Family) Primary Care Physician Patient Instructions: Neck Sprain (DC), Preventing Falls, Upper Back Pain (DC) Add. Discharge Instructions: Use your walker at all times, alternate heat and ice to your back and neck. Alternate between Tylenol 650 mg and ibuprofen 600 mg every 4 hours for pain. Follow-up with your primary care provider if symptoms are not improving or worsen. Return to the emergency department for new, urgent health care needs. All discharge instructions reviewed with patient and/or family. Voiced understanding. XIOMARA MCDONOUGH Sep 02, 2019 14:45
--- NOTE | 2019-09-02 15:44 | Diagnostic Imaging Report ---
Exam: CT cervical and thoracic spine without contrast. Date: September 02, 2019. Indication: 69-year-old female, fall from wheelchair. Neck and upper back pain. Comparison: CT head and cervical spinal January 11, 2018. Technique: Axial CT images of the cervical spine were obtained without contrast. Coronal and sagittal reformats were obtained and provided. Axial CT images of the thoracic spine were obtained. Coronal and sagittal reformats were obtained and provided. All CT scans use one or more of the following dose optimizing techniques: automated exposure control, MA and/or KvP adjustment based on a patient size and exam type, or iterative reconstruction. Findings: There is no identified facet joint subluxation or dislocation. There are advanced left facet degenerative changes at C2-C3, C3-C4 and moderate facet degenerative changes on the left at C6-C7. There is no asymmetric widening of the cervical disc spaces. There is no prominent prevertebral soft tissue swelling. There do appear to be posterior disc osteophyte complexes present at C4-C5 and C6-C7. There is moderate disc height loss at C6-C7. CT is limited for assessment of disc pathology as well as additional nonbloody causes of pathology in the spinal canal. There is no identified acute fracture of the cervical spine. There is a hypoplastic right posterior arch of C1. There are carotid vascular calcifications. There is no identified acute fracture or malalignment of the thoracic spine. There are multilevel mild disc degenerative changes of the thoracic spine. The visualized portions of the lungs are grossly clear. There is a low-attenuation right adrenal nodule on coronal image 25 measuring 1.8 cm in size with internal attenuation diagnostic for an adrenal adenoma. Impression: 1. No identified acute fracture of the cervical spine or thoracic spine. 2. Multilevel degenerative related changes of the cervical and thoracic spine. Dictated by: Dictated on workstation # [id number]
[2019-09-02 16:02] VITALS: BP 160/90
== END 2019-09-02 15:59 | disposition home or self-care (01) ==
LOC: EDUNIT# 13:59 → ER 14:01
DX: M51.34 Other intervertebral disc degeneration, thoracic region (principal); M50.30 Other cervical disc degeneration, unspecified cervical region; I10 Essential (primary) hypertension; Z88.8 Allergy status to other drugs, medicaments and biological substances; Z88.5 Allergy status to narcotic agent; Z79.52 Long term (current) use of systemic steroids; Z82.49 Family history of ischemic heart disease and other diseases of the circulatory system; W07.XXXA Fall from chair, initial encounter
CPT/HCPCS: 72125; 72128

== ENCOUNTER → 2019-11-13 | Outpatient (CLI) | payer MEDICARE, MEDICAID ==
--- NOTE | 2019-11-13 17:24 | Diagnostic Imaging Report ---
INDICATION: Supraclavicular lymphadenopathy. TIME OF EXAM: 05:00 p.m. Correlation is made with prior chest from 06/01/2019. FINDINGS: The heart size is stable. The lungs are clear. The pulmonary vascularity is normal. No infiltrate, effusion, or pneumothorax is detected. IMPRESSION: No acute cardiopulmonary process is detected. Dictated by: Dictated on workstation # [id number]
== END ==
LOC: RAD FS 16:21
PROVIDERS: ATTEND Family Medicine
DX: R59.0 Localized enlarged lymph nodes (principal)
CPT/HCPCS: 71046

== ENCOUNTER → 2020-06-05 | Outpatient (CLI) | payer MEDICARE, MEDICAID ==
[~2020-06-05] MED LIST changes: -MECL-172; +MECL-215
--- NOTE | 2020-06-05 16:05 | Diagnostic Imaging Report ---
INDICATION: Chronic bilateral knee pain. COMPARISON: 01/11/2018 FINDINGS: Multiple radiographic views of bilateral knees were obtained. No acute fracture or dislocation is seen on either side. Osseous structures are intact. There are moderate osteoarthritic changes bilaterally, left greater than right. This consists of significant medial tibiofemoral compartment joint space narrowing with sclerotic remodeling to the articular surfaces. Osteophyte formations are also noted. Otherwise, joint spaces are maintained. There is no large joint effusion. No unexpected radiopaque foreign bodies are seen. IMPRESSION: 1. No acute fracture or dislocation of either knee. 2. Moderate osteoarthritic changes, right greater than left. Dictated by: Dictated on workstation # [id number]
== END ==
LOC: RAD FS 15:12
PROVIDERS: ATTEND Family Medicine
DX: M17.11 Unilateral primary osteoarthritis, right knee (principal); M17.12 Unilateral primary osteoarthritis, left knee

== ENCOUNTER → 2020-09-30 | Outpatient (CLI) | payer MEDICARE, MEDICAID ==
[~2020-09-30] MED LIST changes: +DOXY-311 PO; -DOXY100C42 PO
--- NOTE | 2020-10-01 09:34 | Diagnostic Imaging Report ---
INDICATION: Generalized abdominal pain PA chest, supine and upright abdominal images Heart size and pulmonary vascularity are normal. Lungs are clear. There are no effusions or pneumothoraces. Postoperative changes from a ventral hernia repair. Bowel gas pattern is normal. There are no pathologic masses or calcifications. There are advanced degenerative changes of both hips. IMPRESSION: No acute abnormality seen in the abdomen. Dictated by: Dictated on workstation # [id number]
== END ==
LOC: RAD FS 14:29
PROVIDERS: ATTEND Family Medicine
DX: R10.84 Generalized abdominal pain (principal)
CPT/HCPCS: 74022

== ENCOUNTER 2020-11-18 20:40 | Emergency (ER) | payer MEDICARE, MEDICAID ==
[~2020-11-18] VITALS: Ht 168 cm; Wt 90.2 kg
[2020-11-18 21:02] VITALS: BP 148/87
--- NOTE | 2020-11-18 21:19 | ED Lower Extremity ---
General Chief Complaint: Foreign Body Stated Complaint: GLASS IN FOOT Nursing Triage Note: GLASS IN RIGHT FOOT Source: patient Exam Limitations: no limitations History of Present Illness Date Seen by Provider: Nov 18, 2020 Time Seen by Provider: 21:18 Initial Comments To ER with suspected glass in the right forefoot between the distal first and second metatarsal. She was walking around her house wearing socks when she felt something sharp in her foot. She has pain with walking now because of this. Has been try to get it out with a pair of tweezers but was unable to do so. Tetanus is not up-to-date. She is not sure that it was glass but thinks that it might have been. Onset: just prior to arrival Severity: moderate Pain/Injury Location: right foot Method of Injury: unknown Modifying Factors: Worse With Movement Allergies and Home Medications Allergies Coded Allergies: hydrocortisone (Verified Allergy, Unknown, 04/21/16) oxycodone (Verified Allergy, Unknown, 09/16/17) ether (Verified Adverse Reaction, Unknown, 09/10/16) Home Medications Acetaminophen with Codeine 1 Each Tablet, 1 EACH PO Q4H PRN for COUGH Prescribed by: HERMINIO SU on 03/11/191715 Azithromycin 250 Mg Tablet, 250 MG PO DAILY, (Reported) Cefuroxime Axetil 250 Mg Tablet, 250 MG PO BID Prescribed by: HERMINIO SU on 03/11/191715 Esomeprazole Magnesium 40 Mg Cap, 40 MG PO DAILY, (Reported) Furosemide 20 Mg Tablet, 20 MG PO DAILY, (Reported) Ibuprofen 800 Mg Tablet, 800 MG PO q6 PRN for PAIN-MILD, (Reported) Losartan Potassium 100 Mg Tablet, 100 MG PO DAILY, (Reported) Metoprolol Tartrate 100 Mg Tablet, 100 MG PO BID, (Reported) Prednisone 20 Mg Tab, 20 MG PO BID, (Reported) Patient Home Medication List Home Medication List Reviewed: Yes Review of Systems Constitutional: see HPI EENTM: see HPI Respiratory: no symptoms reported Cardiovascular: no symptoms reported Genitourinary: no symptoms reported Musculoskeletal: no symptoms reported Skin: see HPI Psychiatric/Neurological: No Symptoms Reported Past Aiumhou-Iuqudg-Myfnnd Hx Patient Social History Tobacco Use?: No Substance use?: No Alcohol Use?: No Pt feels they are or have been: No Seasonal Allergies Seasonal Allergies: No Past Medical History Surgery/Hospitalization HX: HTN, BEATRIZ/HERNIA REPAIR Surgeries: Yes (HERNIA REPAIR, cyst removed from head) Abdominal, Tubal Ligation Respiratory: Yes Pneumonia, Chronic Bronchitis Currently Using CPAP: No Currently Using BIPAP: No Cardiac: Yes Hypertension Neurological: Yes Multiple Sclerosis 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 Genitourinary: Yes (MARIA M) Kidney Infection, UTI-Chronic Gastrointestinal: Yes Chronic Constipation Musculoskeletal: Yes (FLOATING DISK, BONES DETERIOATING ) Osteoporosis, Arthritis, Chronic Back Pain Endocrine: Yes Diabetes, Non-Insulin dep HEENT: No Cancer: No Psychosocial: No Integumentary: No Blood Disorders: No Family Medical History Cardiovascular disease 19 FATHER Diabetes mellitus 19 MOTHER G8 BROTHER FH: cancer 19 MOTHER Hypertension 19 MOTHER 19 FATHER G8 BROTHER Physical Exam Vital Signs Vital Signs - First Documented 11/18/20 21:02 Temp 36.8 Pulse 69 Resp 16 B/P (MAP) 148/87 (107) Pulse Ox 98 O2 Delivery Room Air Capillary Refill : Less Than 3 Seconds Height, Weight, BMI Height: 5'6.00" Weight: 242lbs. 0.0oz. 109.323238pd; 31.00 BMI Method:Stated General Appearance: WD/WN, no apparent distress HEENT: PERRL/EOMI, normal ENT inspection Respiratory: no respiratory distress, no accessory muscle use Hips: bilateral hip non-tender, bilateral hip normal inspection, bilateral hip normal range of motion Legs: bilateral leg non-tender, bilateral leg normal inspection, bilateral leg normal range of motion Knees: bilateral knee non-tender, bilateral knee normal inspection, bilateral knee normal range of motion Ankles: bilateral ankle non-tender Feet: right foot other (There is a small nonbleeding puncture wound to the distal foot plantar surface between the distal first and second metatarsals. No palpable foreign body.) Neurologic/Psychiatric: alert, normal mood/affect, oriented x 3 Skin: normal color, warm/dry Progress/Results/Core Measures Results/Orders My Orders Orders - HERMINIO SU APRN Foot, Right, 3 View (11/18/20 21:17) Dipht,Pertuss(Acell),Tet Adult (Boostrix (11/18/20 21:30) Amoxicillin/Clavulanate Tablet (Augmenti (11/18/20 21:30) Medications Given in ED Current Medications Medications Dose Ordered Sig/Omid Route Start Time Stop Time Status Last Admin Dose Admin Diphtheria/ Tetanus/Acell Pertussis 0.5 ml ONCE ONCE IM 11/18/20 21:30 11/18/20 21:31 DC 11/18/20 21:35 0.5 ML Vital Signs/I&O 11/18/20 21:02 Temp 36.8 Pulse 69 Resp 16 B/P (MAP) 148/87 (107) Pulse Ox 98 O2 Delivery Room Air Blood Pressure Mean: 107 Departure Communication (Admissions) 2150-no foreign body seen on x-ray. There is a minute 1 mm puncture wound nonbleeding to the plantar surface of the forefoot on the right. I used a bedside ultrasound to evaluate for any foreign bodies though I am unable to see any shadowing or indication of foreign body. She is diabetic so I would be rather hesitant to incise the bottom of her foot to blindly explore for foreign body. I will give her some prophylactic antibiotics, follow-up with Dr. Merrill. Impression Primary Impression: Puncture wound of foot Disposition: HOME, SELF-CARE Condition: Stable Departure-Patient Inst. Decision time for Depature: 21:52 Referrals: SELFKALA MD (PCP/Family) Primary Care Physician DAVON MERRILL DPM Patient Instructions: Wound Care Add. Discharge Instructions: 1. Call Dr. Merrill tomorrow to make an appointment to be seen for follow-up. Return to ER for any concerns. All discharge instructions reviewed with patient and/or family. Voiced understanding. Scripts Cephalexin (Cephalexin) 500 Mg Tablet 500 MG PO TID, #21 TAB Prov: HERMINIO SU APRN 11/18/20 HERMINIO SU APRN Nov 18, 2020 21:19
[2020-11-18] MEDS ORDERED: AUGMENTIN 875 MG TAB (AMOXICILLIN/CLAVULANATE) PO SCH (21:30)
[2020-11-18] MEDS ORDERED: TETANUS,DIPTH,PERTUSS P/F (BOOSTRIX) 0.5 ML VIAL IM ONE (21:30)
--- NOTE | 2020-11-18 21:45 | Diagnostic Imaging Report ---
HISTORY: Puncture wound of the right forefoot TECHNIQUE: 3 views of the right forefoot. COMPARISON: None FINDINGS: No acute fracture is seen in the right foot. Alignment is normal. There is mild degenerative change in the midfoot. No cortical erosions are seen. No radiopaque foreign body is identified. There is calcaneal enthesopathy. IMPRESSION: 1. No acute osseous abnormality or radiopaque foreign body is seen in the right foot. Dictated by: Dictated on workstation # [id number]
[2020-11-18] MEDS ORDERED: CEPH500T PO (21:53)
== END 2020-11-18 21:59 | disposition home or self-care (01) ==
LOC: EDUNIT# 20:40 → ER 20:44
DX: S91.331A Puncture wound without foreign body, right foot, initial encounter (principal); I10 Essential (primary) hypertension; E11.9 Type 2 diabetes mellitus without complications; Z23 Encounter for immunization; Z79.52 Long term (current) use of systemic steroids; W26.8XXA Contact with other sharp object(s), not elsewhere classified, initial encounter
CPT/HCPCS: 73630; 90471; 90715

== ENCOUNTER → 2021-01-08 | Outpatient (CLI) | payer MEDICARE, MEDICAID ==
[~2021-01-08] MED LIST changes: +CEPH500T PO
--- NOTE | 2021-01-08 16:57 | Diagnostic Imaging Report ---
INDICATION: Right hip pain. COMPARISON: None. FINDINGS: 2 radiographic views of the right hip were obtained. There is no acute fracture or dislocation. Osseous structures are intact. There are advanced osteoarthritic changes of the right hip consisting of severe joint space narrowing with sclerotic remodeling to the articular surfaces and osteophyte formations. Otherwise, right hip joint space is maintained. No unexpected radiopaque foreign bodies are seen. IMPRESSION: Advanced osteoarthritic changes of the right hip, but no acute fracture or dislocation. Dictated by: Dictated on workstation # [id number]
== END ==
LOC: RAD FS 16:37
PROVIDERS: ATTEND Family Medicine
DX: M16.11 Unilateral primary osteoarthritis, right hip (principal)
CPT/HCPCS: 73502

== ENCOUNTER → 2021-01-10 | Outpatient (CLI) | payer MEDICARE, MEDICAID ==
[2021-01-10 15:14] LABS: BASOPHILS % (AUTO) 1 % (0-10); EOSINOPHILS % (AUTO) 0 % (0-10); HEMATOCRIT 44 % (35-52); LYMPHOCYTES # (AUTO) 1.4 10^3/uL (1.0-4.0); LYMPHOCYTES % (AUTO) 24 % (12-44); MEAN CORPUSCULAR HEMOGLOBIN 28 pg (25-34); MEAN CORPUSCULAR HGB CONC 32 g/dL (32-36); MEAN CORPUSCULAR VOLUME 90 fL (80-99); MEAN PLATELET VOLUME 11.4 fL (9.0-12.2); MONOCYTES # (AUTO) 0.4 10^3/uL (0.0-1.0); MONOCYTES % (AUTO) 7 % (0-12); NEUTROPHILS % (AUTO) 69 % (42-75); PLATELET COUNT 174 10^3/uL (130-400); WHITE BLOOD COUNT 5.8 10^3/uL (4.3-11.0)
[2021-01-10 15:19] LABS: ALBUMIN 4.2 GM/DL (3.2-4.5); POTASSIUM 3.9 MMOL/L (3.6-5.0)
[2021-01-10 15:20] LABS: CALCIUM 10.1 MG/DL (8.5-10.1)
[2021-01-10 15:22] LABS: TOTAL PROTEIN 7.4 GM/DL (6.4-8.2)
[2021-01-10 15:23] LABS: BILIRUBIN,TOTAL 0.6 MG/DL (0.1-1.0)
[2021-01-10 15:25] LABS: CREATININE SERUM 0.75 MG/DL (0.60-1.30)
--- NOTE | 2021-01-10 15:37 | Diagnostic Imaging Report ---
EXAMINATION: Abdominal radiographs, acute series. DATE: January 10, 2021. CLINICAL INDICATION: 70-year-old female, abdominal pain. COMPARISON: Abdominal radiographs September 30, 2020. COMMENTS: Heart size and mediastinal contours are unchanged. There is no identified pneumothorax. There is no large pleural effusion. There is no identified focal airspace consolidation. There is no identified free intraperitoneal air. There are metallic coils overlying the abdomen. There are no abnormally distended gas-filled segments of bowel. There is severe osteoarthritis of both hips. There are multilevel degenerative changes of the spine. There is no abnormal calcification overlying the right lower quadrant or expected positions of the kidneys or ureters. There are probable phleboliths. There is a moderate volume stool in the right colon. IMPRESSION: 1. No identified acute abdominal radiographic abnormality. 2. Moderate volume stool in the right colon. Dictated by: Dictated on workstation # [id number]
== END ==
LOC: LAB 14:48
PROVIDERS: ATTEND Nurse Practitioner Family
DX: I10 Essential (primary) hypertension (principal); E11.9 Type 2 diabetes mellitus without complications; K59.1 Functional diarrhea; G35 Multiple sclerosis; M06.9 Rheumatoid arthritis, unspecified; R19.8 Other specified symptoms and signs involving the digestive system and abdomen; Z71.1 Person with feared health complaint in whom no diagnosis is made
CPT/HCPCS: 36415; 74022; 80053; 82150; 83690; 85025

== ENCOUNTER 2021-04-26 14:48 | Emergency (ER) | payer MEDICARE, MEDICAID ==
[~2021-04-26] VITALS: Ht 170 cm; Wt 106.5 kg
--- NOTE | 2021-04-26 15:06 | ED General ---
General Chief Complaint: Dizziness/Syncope Stated Complaint: DIZZINESS/UTI/ELEV BP Source of Information: Patient Exam Limitations: No Limitations History of Present Illness Date Seen by Provider: Apr 26, 2021 Time Seen by Provider: 15:05 Initial Comments To ER with reports of dizziness, urinary frequency and burning. The dizziness s tarted today. Urinary frequency and burning is been ongoing for a while. She reports that she gave a urine sample at her doctor's office a week ago and it was normal. Timing/Duration: 1-2 Days Severity: Moderate Associated Systoms: Denies Symptoms; No Fever/Chills, No Headaches, No Loss of Appetite, No Nausea/Vomiting Allergies and Home Medications Allergies Coded Allergies: hydrocortisone (Verified Allergy, Unknown, 04/21/16) oxycodone (Verified Allergy, Unknown, 09/16/17) ether (Verified Adverse Reaction, Unknown, 09/10/16) Patient Home Medication List Home Medication List Reviewed: Yes Acetaminophen with Codeine (Tylenol with Codeine #3 Tablet) 1 Each Tablet, 1 EACH PO Q4H PRN for COUGH Prescribed by: HERMINIO SU on 03/11/191715 Azithromycin (Azithromycin) 250 Mg Tablet, 250 MG PO DAILY, (Reported) Entered as Reported by: SELENE BLOUNT on 08/10/18 1038 Cefuroxime Axetil (Cefuroxime) 250 Mg Tablet, 250 MG PO BID Prescribed by: HERMINIO SU on 03/11/191715 Cephalexin (Cephalexin) 500 Mg Tablet, 500 MG PO TID Prescribed by: HERMINIO SU on 11/18/20 215 Esomeprazole Magnesium (Nexium) 40 Mg Cap, 40 MG PO DAILY, (Reported) Entered as Reported by: SELENE BLOUNT on 08/10/18 1038 Furosemide (Furosemide) 20 Mg Tablet, 20 MG PO DAILY, (Reported) Entered as Reported by: HELGA MYRICK on 09/16/17 1438 Ibuprofen (Ibuprofen) 800 Mg Tablet, 800 MG PO q6 PRN for PAIN-MILD, (Reported) Entered as Reported by: HELGA MYRICK on 09/16/17 1438 Losartan Potassium (Losartan Potassium) 100 Mg Tablet, 100 MG PO DAILY, (Reported) Entered as Reported by: SELENE BLOUNT on 08/10/18 1038 Meclizine HCl (Meclizine HCl) 25 Mg Tablet, 25 MG PO TID PRN for DIZZINESS Prescribed by: HERMINIO SU on 04/26/21 1540 Metoprolol Tartrate (Metoprolol Tartrate) 100 Mg Tablet, 100 MG PO BID, ( Reported) Entered as Reported by: SELENE BLOUNT on 08/10/18 1038 Prednisone (Prednisone) 20 Mg Tab, 20 MG PO BID, (Reported) Entered as Reported by: SELENE BLOUNT on 08/10/18 1038 Review of Systems Review of Systems Constitutional: see HPI, dizziness EENTM: see HPI Respiratory: no symptoms reported Cardiovascular: no symptoms reported Genitourinary: see HPI Musculoskeletal: no symptoms reported Skin: no symptoms reported Psychiatric/Neurological: No Symptoms Reported Hematologic/Lymphatic: No Symptoms Reported Past Koznogd-Ufczvm-Eplpik Hx Seasonal Allergies Seasonal Allergies: No Past Medical History Surgery/Hospitalization HX: HTN, BEATRIZ/HERNIA REPAIR Surgeries: Yes (HERNIA REPAIR, cyst removed from head) Abdominal, Tubal Ligation Respiratory: Yes Pneumonia, Chronic Bronchitis Currently Using CPAP: No Currently Using BIPAP: No Cardiac: Yes Hypertension Neurological: Yes Multiple Sclerosis 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 Disorders: 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 Genitourinary: Yes (MARIA M) Kidney Infection, UTI-Chronic Gastrointestinal: Yes Chronic Constipation Musculoskeletal: Yes (FLOATING DISK, BONES DETERIOATING ) Osteoporosis, Arthritis, Chronic Back Pain Endocrine: Yes Diabetes, Non-Insulin dep HEENT: No Cancer: No Psychosocial: No Integumentary: No Blood Disorders: No Family Medical History Cardiovascular disease 19 FATHER Diabetes mellitus 19 MOTHER G8 BROTHER FH: cancer 19 MOTHER Hypertension 19 MOTHER 19 FATHER G8 BROTHER Physical Exam Vital Signs Vital Signs - First Documented 04/26/21 15:10 Temp 37.0 Pulse 73 Resp 18 B/P (MAP) 163/98 (119) Pulse Ox 97 Capillary Refill : Height, Weight, BMI Height: 5'6.00" Weight: 242lbs. 0.0oz. 109.499339to; 31.00 BMI Method:Stated General Appearance: No Apparent Distress, WD/WN Eyes: Bilateral Eye Normal Inspection, Bilateral Eye PERRL, Bilateral Eye EOMI Neck: Full Range of Motion, Normal Inspection Respiratory: No Accessory Muscle Use, No Respiratory Distress Cardiovascular: Regular Rate, Rhythm Gastrointestinal: Normal Bowel Sounds, Non Tender, Soft Extremity: Normal Capillary Refill, Normal Inspection Neurologic/Psychiatric: Alert, Oriented x3 Skin: Normal Color, Warm/Dry Progress/Results/Core Measures Suspected Sepsis SIRS Temperature: Pulse: Respiratory Rate: Laboratory Tests 04/26/21 15:00: White Blood Count 7.1 Blood Pressure / Mean: Laboratory Tests 04/26/21 15:00: Creatinine 0.74, Platelet Count 180, Total Bilirubin 0.5 Results/Orders Lab Results Laboratory Tests Test 04/26/21 15:00 04/26/21 15:16 Range/Units White Blood Count 7.1 4.3-11.0 10^3/uL Red Blood Count 5.32 H 3.80-5.11 10^6/uL Hemoglobin 15.4 11.5-16.0 g/dL Hematocrit 48 35-52 % Mean Corpuscular Volume 90 80-99 fL Mean Corpuscular Hemoglobin 29 25-34 pg Mean Corpuscular Hemoglobin Concent 32 32-36 g/dL Red Cell Distribution Width 13.5 10.0-14.5 % Platelet Count 180 130-400 10^3/uL Mean Platelet Volume 11.3 9.0-12.2 fL Immature Granulocyte % (Auto) 0 % Neutrophils (%) (Auto) 67 42-75 % Lymphocytes (%) (Auto) 26 12-44 % Monocytes (%) (Auto) 6 0-12 % Eosinophils (%) (Auto) 0 0-10 % Basophils (%) (Auto) 1 0-10 % Neutrophils # (Auto) 4.7 1.8-7.8 10^3/uL Lymphocytes # (Auto) 1.8 1.0-4.0 10^3/uL Monocytes # (Auto) 0.4 0.0-1.0 10^3/uL Eosinophils # (Auto) 0.0 0.0-0.3 10^3/uL Basophils # (Auto) 0.1 0.0-0.1 10^3/uL Immature Granulocyte # (Auto) 0.0 0.0-0.1 10^3/uL Sodium Level 141 135-145 MMOL/L Potassium Level 3.9 3.6-5.0 MMOL/L Chloride Level 107 98-107 MMOL/L Carbon Dioxide Level 21 21-32 MMOL/L Anion Gap 13 5-14 MMOL/L Blood Urea Nitrogen 36 H 7-18 MG/DL Creatinine 0.74 0.60-1.30 MG/DL Estimat Glomerular Filtration Rate 86 BUN/Creatinine Ratio 49 Glucose Level 96 70-105 MG/DL Calcium Level 9.8 8.5-10.1 MG/DL Corrected Calcium 9.5 8.5-10.1 MG/DL Total Bilirubin 0.5 0.1-1.0 MG/DL Aspartate Amino Transf (AST/SGOT) 15 5-34 U/L Alanine Aminotransferase (ALT/SGPT) 13 0-55 U/L Alkaline Phosphatase 76 40-136 U/L B-Type Natriuretic Peptide < 10.0 <100.0 PG/ML Total Protein 7.8 6.4-8.2 GM/DL Albumin 4.4 3.2-4.5 GM/DL Urine Color YELLOW Urine Clarity CLEAR Urine pH 6.0 5-9 Urine Specific [place] 1.025 H 1.016-1.022 Urine Protein NEGATIVE NEGATIVE Urine Glucose (UA) NEGATIVE NEGATIVE Urine Ketones NEGATIVE NEGATIVE Urine Nitrite NEGATIVE NEGATIVE Urine Bilirubin NEGATIVE NEGATIVE Urine Urobilinogen 0.2 < = 1.0 MG/DL Urine Leukocyte Esterase NEGATIVE NEGATIVE Urine RBC (Auto) NEGATIVE NEGATIVE Urine RBC NONE /HPF Urine WBC RARE /HPF Urine Squamous Epithelial Cells 0-2 /HPF Urine Renal Epithelial Cells NONE /HPF Urine Crystals NONE /LPF Urine Bacteria NEGATIVE /HPF Urine Casts NONE /LPF Urine Mucus NEGATIVE /LPF Urine Culture Indicated NO My Orders Orders - HERMINIO SU APRN Cbc With Automated Diff (04/26/21 14:53) Comprehensive Metabolic Panel (04/26/21 14:53) Bnp Gloria (04/26/21 14:53) Ed Iv/Invasive Line Start (04/26/21 14:53) Ua Culture If Indicated (04/26/21 14:53) Meclizine Tablet (Antivert Tablet) (04/26/21 15:15) Ct Abd/Pelvis Wo(Kidney Stone) (04/26/21 15:34) Medications Given in ED Current Medications Medications Dose Ordered Sig/Omid Route Start Time Stop Time Status Last Admin Dose Admin Meclizine HCl 25 mg ONCE ONCE PO 04/26/21 15:15 04/26/21 15:16 DC 04/26/21 15:21 25 MG Vital Signs/I&O 04/26/21 15:10 Temp 37.0 Pulse 73 Resp 18 B/P (MAP) 163/98 (119) Pulse Ox 97 Capillary Refill : Departure Communication (Admissions) NAME: HENNA LEE [facility] REC#: [id number] PT STATUS: REG ER : 1950 PHYSICIAN: HERMINIO SU APRN ADMIT DATE: 04/26/21/ER Draft Date of Exam:04/26/21 CT ABD/PELVIS WO(KIDNEY STONE) PROCEDURE: CT urinary tract, rule out kidney stone. TECHNIQUE: Multiple contiguous axial images were obtained through the abdomen and pelvis without the use of intravenous contrast. Auto Exposure Controls were utilized during the CT exam to meet ALARA standards for radiation dose reduction. INDICATION: Suprapubic abdominal pain. COMPARISON: No comparison CT of the abdomen and pelvis available. FINDINGS: The lung bases demonstrate no findings of pneumonia or edema. There is no pleural or pericardial effusion. The liver demonstrates no evidence of a focal intrahepatic abnormality. There are surgical clips from cholecystectomy. There is no abnormal biliary dilatation. Pancreas demonstrates no focal abnormality. The spleen is normal in size. There is no adrenal mass. There is a nonobstructing calculus demonstrated within the inferior calyces of the right kidney. There are bilateral parapelvic cysts. There are no findings to suggest hydronephrosis. The ureters are normal in caliber. The urinary bladder is nondistended. There are no findings of bowel obstruction. There is moderate stool within the colon. There is uncomplicated diverticulosis. There are no findings of diverticulitis. There are no focal inflammatory changes present within the right lower quadrant or evidence of appendicitis. There is no free air, free fluid or abscess. The uterus and adnexa are unremarkable. There has been prior mesh repair of the anterior abdominal wall. There is no recurrent abdominal hernia evident. The aorta is normal in caliber. There are advanced degenerative endplate changes present within the spine but no findings of an acute or suspicious osseous abnormality. IMPRESSION: 1. No CT evidence of an acute inflammatory or obstructive process within the abdomen or pelvis. 2. Prior mesh repair. The anterior abdominal wall with no findings of recurrent hernia. There is no focal inflammation within the subcutaneous fat. 3. Uncomplicated diverticulosis without evidence of diverticulitis or appendicitis. There is no bowel obstruction. 4. No free air, free fluid or abscess. 5. Nonobstructing right renal calculus. 6. Prior cholecystectomy. Dictated on workstation # [id number] Dict: 04/26/21 1547 Trans: 04/26/21 1555 [facility] [id number] Interpreted by: BRENNEN COOK MD Electronically signed by: Impression Primary Impression: Dysuria Additional Impression: Dizziness Disposition: HOME, SELF-CARE Condition: Stable Departure-Patient Inst. Decision time for Depature: 15:38 Referrals: SELFKALA MD (PCP/Family) Primary Care Physician Patient Instructions: Dizziness, Adult ED, Dysuria, Adult (DC) Add. Discharge Instructions: . You can use bgtn-[id number] Azo for control of your urinary burning sensation. Be mindful that will turn the urine a very dark orange color so do not let that alarm you. Follow-up with your doctor and call the urologist listed or one of your choosing for follow-up to further evaluate your symptoms. All discharge instructions reviewed with patient and/or family. Voiced understanding. Scripts Meclizine HCl (Meclizine HCl) 25 Mg Tablet 25 MG PO TID PRN for DIZZINESS, #20 TAB Prov: HERMINIO SU STORE DELI MANAGER 04/26/21 HERMINIO SU APRN Apr 26, 2021 15:06
[2021-04-26 15:10] LABS: BASOPHILS # (AUTO) 0.1 10^3/uL (0.0-0.1); BASOPHILS % (AUTO) 1 % (0-10); EOSINOPHILS % (AUTO) 0 % (0-10); HEMATOCRIT 48 % (35-52); HEMOGLOBIN 15.4 g/dL (11.5-16.0); LYMPHOCYTES # (AUTO) 1.8 10^3/uL (1.0-4.0); LYMPHOCYTES % (AUTO) 26 % (12-44); MEAN CORPUSCULAR HEMOGLOBIN 29 pg (25-34); MEAN CORPUSCULAR HGB CONC 32 g/dL (32-36); MEAN CORPUSCULAR VOLUME 90 fL (80-99); MEAN PLATELET VOLUME 11.3 fL (9.0-12.2); MONOCYTES # (AUTO) 0.4 10^3/uL (0.0-1.0); MONOCYTES % (AUTO) 6 % (0-12); NEUTROPHILS # (AUTO) 4.7 10^3/uL (1.8-7.8); NEUTROPHILS % (AUTO) 67 % (42-75); PLATELET COUNT 180 10^3/uL (130-400); WHITE BLOOD COUNT 7.1 10^3/uL (4.3-11.0)
[2021-04-26] MEDS ORDERED: MECLIZINE 25 MG (ANTIVERT) TAB PO ONE (15:15)
[2021-04-26 15:24] LABS: BILIRUBIN,URINE NEGATIVE (NEGATIVE); CLARITY,URINE CLEAR; COLOR,URINE YELLOW; GLUCOSE, URINE (UA) NEGATIVE (NEGATIVE); KETONES,URINE NEGATIVE (NEGATIVE); LEUKOCYTE ESTERASE ,URINE NEGATIVE (NEGATIVE); NITRITE,URINE NEGATIVE (NEGATIVE); PROTEIN,URINE NEGATIVE (NEGATIVE)
[2021-04-26 15:28] LABS: ALBUMIN 4.4 GM/DL (3.2-4.5); BILIRUBIN,TOTAL 0.5 MG/DL (0.1-1.0); CALCIUM 9.8 MG/DL (8.5-10.1); CREATININE SERUM 0.74 MG/DL (0.60-1.30); POTASSIUM 3.9 MMOL/L (3.6-5.0); TOTAL PROTEIN 7.8 GM/DL (6.4-8.2)
[2021-04-26 15:32] LABS: BACTERIA,URINE NEGATIVE /HPF; SQUAMOUS EPITHELIAL CELL,UR 0-2 /HPF; WBC,URINE RARE /HPF
[2021-04-26] MEDS ORDERED: MECL-149 PO (15:40)
--- NOTE | 2021-04-26 15:55 | Diagnostic Imaging Report ---
PROCEDURE: CT urinary tract, rule out kidney stone. TECHNIQUE: Multiple contiguous axial images were obtained through the abdomen and pelvis without the use of intravenous contrast. Auto Exposure Controls were utilized during the CT exam to meet ALARA standards for radiation dose reduction. INDICATION: Suprapubic abdominal pain. COMPARISON: No comparison CT of the abdomen and pelvis available. FINDINGS: The lung bases demonstrate no findings of pneumonia or edema. There is no pleural or pericardial effusion. The liver demonstrates no evidence of a focal intrahepatic abnormality. There are surgical clips from cholecystectomy. There is no abnormal biliary dilatation. Pancreas demonstrates no focal abnormality. The spleen is normal in size. There is no adrenal mass. There is a nonobstructing calculus demonstrated within the inferior calyces of the right kidney. There are bilateral parapelvic cysts. There are no findings to suggest hydronephrosis. The ureters are normal in caliber. The urinary bladder is nondistended. There are no findings of bowel obstruction. There is moderate stool within the colon. There is uncomplicated diverticulosis. There are no findings of diverticulitis. There are no focal inflammatory changes present within the right lower quadrant or evidence of appendicitis. There is no free air, free fluid or abscess. The uterus and adnexa are unremarkable. There has been prior mesh repair of the anterior abdominal wall. There is no recurrent abdominal hernia evident. The aorta is normal in caliber. There are advanced degenerative endplate changes present within the spine but no findings of an acute or suspicious osseous abnormality. IMPRESSION: 1. No CT evidence of an acute inflammatory or obstructive process within the abdomen or pelvis. 2. Prior mesh repair of the anterior abdominal wall with no findings of recurrent hernia. There is no focal inflammation within the subcutaneous fat. 3. Uncomplicated diverticulosis without evidence of diverticulitis or appendicitis. There is no bowel obstruction. 4. No free air, free fluid or abscess. 5. Nonobstructing right renal calculus. 6. Prior cholecystectomy. Dictated by: Dictated on workstation # [id number]
[2021-04-26 16:23] VITALS: BP 148/102
== END 2021-04-26 16:23 | disposition home or self-care (01) ==
LOC: EDUNIT# 14:48 → ER 14:51
DX: R30.0 Dysuria (principal); R42 Dizziness and giddiness; I10 Essential (primary) hypertension; E11.9 Type 2 diabetes mellitus without complications
CPT/HCPCS: 36415; 74176; 80053; 81000; 83880; 85025

== ENCOUNTER 2021-07-20 13:25 | Emergency (ER) | payer MEDICARE, MEDICAID ==
[~2021-07-20] VITALS: Ht 171.5 cm; Wt 97.1 kg
[~2021-07-20 13:25] MED LIST changes: -FLUC200T5; +FLUC200T9; +MECL-149 PO
[2021-07-20 13:48] VITALS: BP 145/87
[2021-07-20 14:02] LABS: BILIRUBIN,URINE NEGATIVE (NEGATIVE); CLARITY,URINE CLEAR; COLOR,URINE YELLOW; GLUCOSE, URINE (UA) NEGATIVE (NEGATIVE); KETONES,URINE NEGATIVE (NEGATIVE); LEUKOCYTE ESTERASE ,URINE TRACE (NEGATIVE); NITRITE,URINE NEGATIVE (NEGATIVE); PH,URINE 5.5 (5-9); PROTEIN,URINE 2+ (NEGATIVE)
[2021-07-20 14:09] LABS: BACTERIA,URINE FEW /HPF; RENAL EPITHELIAL CELLS,URINE 0-2 /HPF
--- NOTE | 2021-07-20 14:14 | ED GU-Female ---
General Chief Complaint: - 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 Stated Complaint: KIDNEY INFECTION Nursing Triage Note: PT TO RM 3 W C/O UTI DX ON 07/18, PRESCRIBED MACROBID FROM [facility]. PT REPORTS SHE TOOK 1 TAB AND IS NOW EXPERIENCING WORSENING LEG EDEMA. TO ER REQUESTING CHANGE IN ANTIBIOTIC. PT A&OX4. Source: patient, other Exam Limitations: no limitations History of Present Illness Date Seen by Provider: Jul 20, 2021 Time Seen by Provider: 13:59 Initial Comments Patient to ER by private conveyance with chief complaint per nursing that she was diagnosed with a urinary tract infection 2 days ago at [facility]. She took 1 dose of Macrobid and felt that it made her legs swell worse as well as it caused momentary nausea so she wants a different antibiotic. She has frequent UTIs with the same symptoms. She has no evaluation by urology in the past. She feels that azithromycin helps her better than the other antibiotic. She is not having any fevers chills nausea vomiting diarrhea or constipation. Allergies and Home Medications Allergies Coded Allergies: hydrocortisone (Verified Allergy, Unknown, 04/21/16) oxycodone (Verified Allergy, Unknown, 09/16/17) ether (Verified Adverse Reaction, Unknown, 09/10/16) Patient Home Medication List Home Medication List Reviewed: Yes Acetaminophen with Codeine (Tylenol with Codeine #3 Tablet) 1 Each Tablet, 1 EACH PO Q4H PRN for COUGH Prescribed by: HERMINIO SU on 03/11/191715 Azithromycin (Azithromycin) 250 Mg Tablet, 250 MG PO DAILY, (Reported) Entered as Reported by: SELENE BLOUNT on 08/10/18 1038 Cefuroxime Axetil (Cefuroxime) 250 Mg Tablet, 250 MG PO BID Prescribed by: HERMINIO SU on 03/11/19 171 Cephalexin (Cephalexin) 500 Mg Tablet, 500 MG PO TID Prescribed by: HERMINIO SU on 11/18/20 215 Esomeprazole Magnesium (Nexium) 40 Mg Cap, 40 MG PO DAILY, (Reported) Entered as Reported by: SELENE BLOUNT on 08/10/18 1038 Fluconazole (Diflucan) 200 Mg Tablet, 200 MG PO ONCE Prescribed by: HIREN MUIR on 07/20/21 1508 Furosemide (Furosemide) 20 Mg Tablet, 20 MG PO DAILY, (Reported) Entered as Reported by: HELGA MYRICK on 09/16/17 1438 Ibuprofen (Ibuprofen) 800 Mg Tablet, 800 MG PO q6 PRN for PAIN-MILD, (Reported) Entered as Reported by: HELGA MYRICK on 09/16/17 1438 Losartan Potassium (Losartan Potassium) 100 Mg Tablet, 100 MG PO DAILY, (Reported) Entered as Reported by: SELENE BLOUNT on 08/10/18 1038 Meclizine HCl (Meclizine HCl) 25 Mg Tablet, 25 MG PO TID PRN for DIZZINESS Prescribed by: HERMINIO SU on 04/26/21 1540 Metoprolol Tartrate (Metoprolol Tartrate) 100 Mg Tablet, 100 MG PO BID, (Reported) Entered as Reported by: SELENE BLOUNT on 08/10/18 1038 Prednisone (Prednisone) 20 Mg Tab, 20 MG PO BID, (Reported) Entered as Reported by: SELENE BLOUNT on 08/10/18 1038 Review of Systems Review of Systems Constitutional: No chills, No diaphoresis EENTM: No ear discharge, No ear pain Respiratory: No cough, No short of breath Cardiovascular: No chest pain, No edema Gastrointestinal: No abdominal pain, No nausea, No vomiting Genitourinary: denies discharge, denies dysuria All Other Systemes Reviewed Negative Unless Noted: Yes Past Tibenry-Mwdgyr-Kybeaz Hx Patient Social History Tobacco Use?: No Use of E-Cig and/or Vaping dev: No Substance use?: No Alcohol Use?: No Seasonal Allergies Seasonal Allergies: No Past Medical History Surgery/Hospitalization HX: BEATRIZ, TUBAL, HERNIA (MESH), HTN, MS, T2DM, COPD, OSTEOARTHRITIS Surgeries: Yes (HERNIA REPAIR, cyst removed from head) Abdominal, Tubal Ligation Respiratory: Yes Pneumonia, Chronic Bronchitis Currently Using CPAP: No Currently Using BIPAP: No Cardiac: Yes Hypertension Neurological: Yes Multiple Sclerosis 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 Genitourinary: Yes (MARIA M) Kidney Infection, UTI-Chronic Gastrointestinal: Yes Chronic Constipation Musculoskeletal: Yes (FLOATING DISK, BONES DETERIOATING ) Osteoporosis, Arthritis, Chronic Back Pain Endocrine: Yes Diabetes, Non-Insulin dep HEENT: No Cancer: No Psychosocial: No Integumentary: No Blood Disorders: No Family Medical History Cardiovascular disease 19 FATHER Diabetes mellitus 19 MOTHER G8 BROTHER FH: cancer 19 MOTHER Hypertension 19 MOTHER 19 FATHER G8 BROTHER Physical Exam Vital Signs Vital Signs - First Documented 07/20/21 13:48 Temp 36.7 Pulse 77 Resp 20 B/P (MAP) 145/87 (106) Pulse Ox 96 O2 Delivery Room Air Capillary Refill : Less Than 3 Seconds Height, Weight, BMI Height: 5'6.00" Weight: 242lbs. 0.0oz. 109.578521mk; 33.00 BMI Method:Stated General Appearance: WD/WN, no apparent distress HEENT: PERRL/EOMI, pharynx normal Neck: full range of motion, supple, normal inspection Cardiovascular: normal peripheral pulses, regular rate, rhythm Respiratory: lungs clear, normal breath sounds, no respiratory distress, no accessory muscle use Gastrointestinal: normal bowel sounds, non tender, soft Neurologic/Psychiatric: alert, normal mood/affect, oriented x 3 Progress/Results/Core Measures Suspected Sepsis SIRS Temperature: Pulse: 77 Respiratory Rate: 20 Blood Pressure 145 /87 Mean: 106 Results/Orders Lab Results Laboratory Tests Test 07/20/21 13:51 Range/Units Urine Color YELLOW Urine Clarity CLEAR Urine pH 5.5 5-9 Urine Specific [place] >=1.030 1.016-1.022 Urine Protein 2+ H NEGATIVE Urine Glucose (UA) NEGATIVE NEGATIVE Urine Ketones NEGATIVE NEGATIVE Urine Nitrite NEGATIVE NEGATIVE Urine Bilirubin NEGATIVE NEGATIVE Urine Urobilinogen 0.2 < = 1.0 MG/DL Urine Leukocyte Esterase TRACE H NEGATIVE Urine RBC (Auto) NEGATIVE NEGATIVE Urine RBC NONE /HPF Urine WBC 2-5 /HPF Urine Squamous Epithelial Cells 5-10 /HPF Urine Renal Epithelial Cells 0-2 /HPF Urine Crystals NONE /LPF Urine Bacteria FEW H /HPF Urine Casts NONE /LPF Urine Mucus SMALL H /LPF Urine Culture Indicated YES My Orders Orders - HIREN MUIR Ua Culture If Indicated (07/20/21 13:35) Urine Culture (07/20/21 13:51) Vital Signs/I&O 07/20/21 13:48 Temp 36.7 Pulse 77 Resp 20 B/P (MAP) 145/87 (106) Pulse Ox 96 O2 Delivery Room Air Capillary Refill : Less Than 3 Seconds Blood Pressure Mean: 106 Progress Note : Time: 15:04 Progress Note I attest that I saw this patient alongside the medical student and agree with his documented history, physical exam and review of systems except as otherwise noted. Patient notes she is having some burning pain starting around her groin going towards her back. She does not have any evidence of UTI on urinalysis. She only received 1 dose of Macrobid before deciding that it was not for her. She wants azithromycin which would not be a great choice of medication for UTI. She does not have evidence of UTI. We have offered a wet prep which she declined. We will give her a dose of Diflucan put her on Pyridium and have her follow-up with urology this week if possible. Departure Impression Primary Impression: Dysuria Disposition: HOME, SELF-CARE Condition: Stable Departure-Patient Inst. Decision time for Depature: 15:05 Referrals: SELFKALA MD (PCP/Family) Primary Care Physician JUVE KIM MD Patient Instructions: Dysuria, Adult (DC) Add. Discharge Instructions: Please call Dr. Kim the urologist and request a follow-up appointment this week if possible. Drink plenty of fluids to help flush out your kidneys. supervisor cytology Pyridium [id number] from the pharmacy. 100 to 200 mg twice a day for up to 5 days as needed for burning urination. Tylenol 1000 mg as needed for pain every 8 hours. Return to the ER for severe fevers, intractable vomiting or pain. Diflucan 200 mg x 1 to treat any yeast infection that might be contributing to your symptoms. All discharge instructions reviewed with patient and/or family. Voiced u nderstanding. Scripts Fluconazole (Diflucan) 200 Mg Tablet 200 MG PO ONCE, #1 TAB 0 Refills Prov: HIREN MUIR 07/20/21 Copy Copies To 1: JUVE KIM MD, TITUS J Jul 20, 2021 14:14
[2021-07-20] MEDS ORDERED: FLUC200T PO (15:08)
== END 2021-07-20 15:18 | disposition home or self-care (01) ==
LOC: EDUNIT# 13:25 → ER 13:26
DX: R30.0 Dysuria (principal); E11.9 Type 2 diabetes mellitus without complications
CPT/HCPCS: 81000; 87077; 87088; 99282

== ENCOUNTER → 2021-08-27 | Outpatient (CLI) | payer MEDICARE, MEDICAID ==
[~2021-08-27] MED LIST changes: +FLUC200T PO
--- NOTE | 2021-08-27 11:13 | Diagnostic Imaging Report ---
Indication: Right lower quadrant pain KUB 11:05 AM The gallbladder surgically absent. There are postoperative changes from a ventral hernia repair. Bowel gas pattern is normal. There are no pathologic masses or calcifications. There is advanced degenerative change of both hips. IMPRESSION: Postsurgical changes in the abdomen. No acute abnormality seen. Dictated by: Dictated on workstation # [id number]
== END ==
LOC: RAD FS 10:43
PROVIDERS: ATTEND Family Medicine
DX: R10.31 Right lower quadrant pain (principal); Z98.890 Other specified postprocedural states
CPT/HCPCS: 74018

== ENCOUNTER 2021-11-11 14:50 | Emergency (ER) | payer MEDICARE, MEDICAID ==
[~2021-11-11] VITALS: Ht 172 cm; Wt 99.7 kg
--- NOTE | 2021-11-11 15:07 | ED Lower Extremity ---
General Chief Complaint: Lower Extremity Stated Complaint: FELL, L HIP PAIN Source: patient Exam Limitations: no limitations History of Present Illness Date Seen by Provider: Nov 11, 2021 Time Seen by Provider: 15:04 Initial Comments Patient is a 71-year-old female with a history of osteoarthritis who presents ED with left hip pain. Patient fell around 130 today. She was walking around the countertop at home when she lost her balance landing on her left hip. She was able to stand and bear weight afterwards but reports pain. History of right hip arthroplasty. Pain only occurs with movement or standing. No obvious shortening. Denies hitting her head, loss of consciousness, nausea vomiting, diarrhea, fever, chills, chest pain, shortness of breath, back pain. She does report chronic pain to the left knee. Denies taking thing for pain at home. Allergies and Home Medications Allergies Coded Allergies: hydrocortisone (Verified Allergy, Unknown, 04/21/16) oxycodone (Verified Allergy, Unknown, 09/16/17) ether (Verified Adverse Reaction, Unknown, 09/10/16) Patient Home Medication List Home Medication List Reviewed: Yes Acetaminophen with Codeine (Tylenol with Codeine #3 Tablet) 1 Each Tablet, 1 EACH PO Q4H PRN for COUGH Prescribed by: HERMINIO SU on 03/11/19 1716 Azithromycin (Azithromycin) 250 Mg Tablet, 250 MG PO DAILY, (Reported) Entered as Reported by: SELENE BLOUNT on 08/10/18 1038 Cefuroxime Axetil (Cefuroxime) 250 Mg Tablet, 250 MG PO BID Prescribed by: HERMINIO SU on 03/11/19 1716 Cephalexin (Cephalexin) 500 Mg Tablet, 500 MG PO TID Prescribed by: HERMINIO SU on 11/18/20 2153 Esomeprazole Magnesium (Nexium) 40 Mg Cap, 40 MG PO DAILY, (Reported) Entered as Reported by: SELENE BLOUNT on 08/10/18 1038 Fluconazole (Diflucan) 200 Mg Tablet, 200 MG PO ONCE Prescribed by: HIREN MUIR on 07/20/21 1508 Furosemide (Furosemide) 20 Mg Tablet, 20 MG PO DAILY, (Reported) Entered as Reported by: HELGA MYRICK on 09/16/17 1438 Ibuprofen (Ibuprofen) 800 Mg Tablet, 800 MG PO q6 PRN for PAIN-MILD, (Reported) Entered as Reported by: HELGA MYRICK on 09/16/17 1438 Losartan Potassium (Losartan Potassium) 100 Mg Tablet, 100 MG PO DAILY, (Reported) Entered as Reported by: SELENE BLOUNT on 08/10/18 1038 Meclizine HCl (Meclizine HCl) 25 Mg Tablet, 25 MG PO TID PRN for DIZZINESS Prescribed by: HERMINIO SU on 04/26/21 1540 Metoprolol Tartrate (Metoprolol Tartrate) 100 Mg Tablet, 100 MG PO BID, (Reported) Entered as Reported by: SELENE BLOUNT on 08/10/18 1038 Prednisone (Prednisone) 20 Mg Tab, 20 MG PO BID, (Reported) Entered as Reported by: SELENE BLOUNT on 08/10/18 1038 Tramadol HCl (Ultram) 50 Mg Tablet, 50 MG PO TID Prescribed by: ROSEMARY SIMMONS on 11/11/21 1658 Review of Systems Constitutional: No chills, No diaphoresis EENTM: No ear pain, No blurred vision, No double vision, No hoarseness, No mouth pain, No mouth swelling Respiratory: No cough, No dyspnea on exertion Cardiovascular: No chest pain Gastrointestinal: No abdominal pain, No diarrhea, No nausea, No vomiting Genitourinary: No decreased output, No discharge Musculoskeletal: No back pain; joint pain, muscle pain Skin: No change in color, No change in hair/nails All Other Systems Reviewed Negative Unless Noted: Yes Past Ififhpc-Smsmyr-Dftugq Hx Seasonal Allergies Seasonal Allergies: No Past Medical History Surgery/Hospitalization HX: BEATRIZ, TUBAL, HERNIA (MESH), HTN, MS, T2DM, COPD, OSTEOARTHRITIS Surgeries: Yes (HERNIA REPAIR, cyst removed from head) Abdominal, Tubal Ligation Respiratory: Yes Pneumonia, Chronic Bronchitis Currently Using CPAP: No Currently Using BIPAP: No Cardiac: Yes Hypertension Neurological: Yes Multiple Sclerosis 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 Genitourinary: Yes (MARIA M) Kidney Infection, UTI-Chronic Gastrointestinal: Yes Chronic Constipation Musculoskeletal: Yes (FLOATING DISK, BONES DETERIOATING ) Osteoporosis, Arthritis, Chronic Back Pain Endocrine: Yes Diabetes, Non-Insulin dep HEENT: No Cancer: No Psychosocial: No Integumentary: No Blood Disorders: No Family Medical History Cardiovascular disease 19 FATHER Diabetes mellitus 19 MOTHER G8 BROTHER FH: cancer 19 MOTHER Hypertension 19 MOTHER 19 FATHER G8 BROTHER Physical Exam Vital Signs Vital Signs - First Documented 11/11/21 11/11/21 14:55 17:06 Temp 36.7 Pulse 73 Resp 18 B/P (MAP) 169/103 Pulse Ox 96 Capillary Refill : Height, Weight, BMI Height: 5'6.00" Weight: 242lbs. 0.0oz. [id number]; 33.00 BMI Method:Stated General Appearance: WD/WN, no apparent distress HEENT: PERRL/EOMI, normal ENT inspection, TMs normal, pharynx normal Neck: non-tender, full range of motion, supple Cardiovascular: regular rate, rhythm, no edema, no gallop, no JVD Respiratory: chest non-tender, lungs clear, normal breath sounds, no respiratory distress, no accessory muscle use Gastrointestinal: normal bowel sounds, non tender, soft, no organomegaly Back: normal inspection, no CVA tenderness, no vertebral tenderness Hips: left hip pain, left hip soft tissue tenderness; bilateral hip swelling, bilateral hip other Legs: bilateral leg non-tender, bilateral leg normal inspection, bilateral leg normal range of motion, bilateral leg swelling; left leg other (No shortening or rotation of the left leg) Knees: bilateral knee non-tender, bilateral knee normal inspection, bilateral knee normal range of motion Ankles: bilateral ankle non-tender, bilateral ankle normal inspection, bilateral ankle normal range of motion Feet: bilateral foot non-tender, bilateral foot normal inspection, bilateral foot normal range of motion Neurologic/Psychiatric: lard bleacher II-XII nml as tested, no motor/sensory deficits, alert, normal mood/affect, oriented x 3 Progress/Results/Core Measures Results/Orders My Orders Orders - TRUDI DAVE Hip, Left, 2 Views (11/11/21 15:03) Femur, Left, 2 Views (11/11/21 15:03) Tramadol Tablet (Ultram Tablet) (11/11/21 15:10) Ct Pelvis Wo (11/11/21 16:07) Vital Signs/I&O 11/11/21 11/11/21 14:55 17:06 Temp 36.7 Pulse 73 62 Resp 18 20 B/P (MAP) 169/103 Pulse Ox 96 97 Departure Communication (PCP) Patient is a 71-year-old female who presents the ED for left hip pain after a fall. Was able to stand but had pain and discomfort. Initial x-ray was concerning for a possible impacted fracture. She does have severe degenerative changes noted to the left hip. Denies hitting her head or loss of consciousness. CT scan was recommended and ordered. No evidence of acute fracture. Severe degenerative changes noted. She was able to stand and bear weight here. Was given a dose of Ultram. She has family support at home and feels comfortable going at home. Discussed with patient she could potentially have some pain and discomfort with walking. Discussed follow-up with her primary care physician to discuss physical therapy and rehab. If any worsening pain strongly recommend returning or follow-up outpatient [facility] with orthopedic which was provided in discharge instructions. Will discharge with pain medication. She has no other complaints. No bowel or urine incontinence, saddle paresthesia. She has no thoracic or lumbar midline tenderness. Impression Primary Impression: Hip pain Disposition: HOME, SELF-CARE Condition: Stable Departure-Patient Inst. Decision time for Depature: 16:54 Referrals: SUKHDEEP MAI MD SELFKALA MD (PCP/Family) Primary Care Physician Patient Instructions: Hip Pain Add. Discharge Instructions: Recommend using walker. Pain medication as tolerated. Orthopedic follow-up in 7 to 10 days for reevaluation All discharge instructions reviewed with patient and/or family. Voiced understanding. Scripts Tramadol HCl (Ultram) 50 Mg Tablet 50 MG PO TID, #12 TAB Prov: TRUDI DAVE 11/11/21 TRUDI DAVE Nov 11, 2021 15:07
--- NOTE | 2021-11-11 16:02 | Diagnostic Imaging Report ---
CLINICAL HISTORY: Fall. Left hip pain. COMPARISON: 04/26/2021. TECHNIQUE: Two views of the left hip. FINDINGS: Advanced degenerative changes are visualized in the left hip with joint space loss, marginal osteophytes, and subchondral sclerosis. This somewhat limits evaluation for a nondisplaced fracture in the proximal left femur. There is suggestion of mild impaction at the neck of the left femur. No pelvic fracture is seen. No focal osseous lesions. IMPRESSION: 1. Possible subtle impaction fracture at the neck of the left femur. This is suboptimally evaluated due to advanced degenerative changes in the left hip. Consider CT of the left hip to further evaluate. Dictated by: Dictated on workstation # [id number]
--- NOTE | 2021-11-11 16:06 | Diagnostic Imaging Report ---
INDICATION: Recent fall. Left hip pain. COMPARISON: Abdominal radiograph dated 08/27/2021. FINDINGS: Multiple radiographic views of the left femur were obtained and show no acute osseous abnormality. There is no evidence of acute fracture or dislocation. Left knee joint is suboptimally demonstrated but appears appropriate. Evaluation of the left hip demonstrates advanced severe osteoarthritic changes, but is otherwise intact. No unexpected radiopaque foreign bodies are seen. IMPRESSION: 1. No acute fracture or dislocation of the left femur. 2. Severe osteoarthritic changes of the left hip. Dictated by: Dictated on workstation # [id number]
--- NOTE | 2021-11-11 16:47 | Diagnostic Imaging Report ---
CLINICAL INDICATION: Patient fell around 1330 hours today trying to grab her walker. Patient is unable to bear weight for short periods of time. EXAM: Axial CT scan of the pelvis performed without IV contrast. Sagittal and coronal reformatted images are created. Auto Exposure Controls were utilized during the CT exam to meet ALARA standards for radiation dose reduction. COMPARISON: CT scan of the abdomen and pelvis without contrast dated 04/26/2021. FINDINGS: There is no acute fracture or dislocation involving the hips, pelvis, sacrum, or visualized lower lumbar spine. There are severely hypertrophic spurs involving the bilateral femoral head/neck junction regions and acetabular regions. There is severe joint space narrowing involving the bilateral femoroacetabular joint spaces. There are prominent subchondral cystic changes involving the bilateral femoroacetabular regions (right side more than the left), and endplate sclerosis. There is sclerosis of the sacroiliac joints. There are postop changes with appearance of abdominal wall repair involving the right anterior aspect of the abdomen. The visualized intrapelvic and extrapelvic soft tissue structures are unremarkable. Diverticulosis is noted. IMPRESSION: 1: There is no acute fracture or dislocation. 2: There is severe degenerative disease of both hips. Dictated by: Dictated on workstation # [id number]
[2021-11-11] MEDS ORDERED: TRAM-42 PO (16:58)
[2021-11-11 17:06] VITALS: BP 169/103
== END 2021-11-11 17:15 | disposition home or self-care (01) ==
LOC: EDUNIT# 14:50 → ER 14:52
DX: M25.552 Pain in left hip (principal); M16.12 Unilateral primary osteoarthritis, left hip; Z28.310 Unvaccinated for COVID-19
CPT/HCPCS: 72192; 73502; 73552

== ENCOUNTER → 2022-01-01 | Outpatient (CLI) | payer MEDICARE, MEDICAID ==
[~2022-01-01] MED LIST changes: +TRAM-42 PO
--- NOTE | 2022-01-01 12:43 | Diagnostic Imaging Report ---
INDICATION: ASTHMA, WHEEZING COMPARISON: 01/10/2021 FINDINGS: Frontal and lateral views of the chest demonstrate normal heart size and pulmonary vascularity. The lungs are clear. There are no signs of infiltrate, pleural effusions or pneumothoraces. The visualized osseous structures show no acute abnormalities. IMPRESSION: 1. No acute process. No signs of infiltrates, effusions or pneumothoraces. Dictated by: Dictated on workstation # [id number]
== END ==
LOC: RAD FS 09:30
PROVIDERS: ATTEND Family Medicine
DX: J45.909 Unspecified asthma, uncomplicated (principal)
CPT/HCPCS: 71046

== ENCOUNTER 2022-08-21 10:11 | Emergency (ER) | payer MEDICARE, MEDICAID ==
[~2022-08-21] VITALS: Ht 170 cm; Wt 105.0 kg
[~2022-08-21 10:11] MED LIST changes: -DOXY-311 PO; +DOXY-444 PO
--- NOTE | 2022-08-21 11:02 | ED Abdominal Pain ---
General Chief Complaint: Abdominal/GI Problems Stated Complaint: STOMACH ISSUES Nursing Triage Note: PT PRESENTS TO ED VIA POV FROM [facility] FOR COMPLAINTS OF R SIDED ABDOMINAL PAIN AND CP- WHICH PT REPORTS IS JUST PRESENT WHEN COUGHING. [facility] REPORTS THEY DID AN EKG AND SUSPECTED RBBB. Source of Information: Patient, Family Exam Limitations: No Limitations History of Present Illness Date Seen by Provider: August 21, 2022 Time Seen by Provider: 10:50 Initial Comments Patient is a 72yo female to the ER with a family member/sig other - cc RLQ abdominal pain. She points to the flank and RLQ. Nothing makes it any better or any worse. She has been seeing her PCP - Dr Mccarty for this and states she had a "virus" for which she was prescribed medications (she cannot remember the name). She finished these and the pain recurred in her Right low abdomen. She states increased urination with some burning. She states every time she eats she has diarrhea, but also gets "blocked up" as well where she has to manually disimpact herself. When she eats she take immodium to prevent post prandial diarrhea. No fevers or chills. No SOB. She has had a beatriz and a hernia repair with mesh. States she had a colonoscopy a year ago. She is a "borderline" diabetic and has HTN with edema. She states that OTC pain relievers cause her to retain fluids. So she has not been taking anything for the pain in her abdomen. Timing/Duration: 2-3 Days Severity/Quality: Moderate, Burning, Cramping Location: RLQ Radiation: Flank (right) Associated Symptoms: Other (alternating diarrhea and constipation) Allergies and Home Medications Allergies Coded Allergies: hydrocortisone (Verified Allergy, Unknown, 04/21/16) oxycodone (Verified Allergy, Unknown, 09/16/17) ether (Verified Adverse Reaction, Unknown, 09/10/16) Patient Home Medication List Home Medication List Reviewed: Yes Acetaminophen with Codeine (Tylenol with Codeine #3 Tablet) 1 Each Tablet, 1 EACH PO Q4H PRN for COUGH Prescribed by: HERMINIO SU on 03/11/19 1716 Azithromycin (Azithromycin) 250 Mg Tablet, 250 MG PO DAILY, (Reported) Entered as Reported by: SELENE BLOUNT on 08/10/18 1038 Cefuroxime Axetil (Cefuroxime) 250 Mg Tablet, 250 MG PO BID Prescribed by: HERMINIO SU on 03/11/19 1716 Cephalexin (Cephalexin) 500 Mg Tablet, 500 MG PO TID Prescribed by: HERMINIO SU on 11/18/20 215 Esomeprazole Magnesium (Nexium) 40 Mg Cap, 40 MG PO DAILY, (Reported) Entered as Reported by: SELENE BLOUNT on 08/10/18 1038 Fluconazole (Diflucan) 200 Mg Tablet, 200 MG PO ONCE Prescribed by: HIREN MUIR on 07/20/21 1508 Furosemide (Furosemide) 20 Mg Tablet, 20 MG PO DAILY, (Reported) Entered as Reported by: HELGA MYRICK on 09/16/17 1438 Ibuprofen (Ibuprofen) 800 Mg Tablet, 800 MG PO q6 PRN for PAIN-MILD, (Reported) Entered as Reported by: HELGA MYRICK on 09/16/17 1438 Losartan Potassium (Losartan Potassium) 100 Mg Tablet, 100 MG PO DAILY, (Reported) Entered as Reported by: SELENE BLOUNT on 08/10/18 1038 Meclizine HCl (Meclizine HCl) 25 Mg Tablet, 25 MG PO TID PRN for DIZZINESS Prescribed by: HERMINIO SU on 04/26/21 1540 Metoprolol Tartrate (Metoprolol Tartrate) 100 Mg Tablet, 100 MG PO BID, (Reported) Entered as Reported by: SELENE BLOUNT on 08/10/18 1038 Prednisone (Prednisone) 20 Mg Tab, 20 MG PO BID, (Reported) Entered as Reported by: SELENE BLOUNT on 08/10/18 1038 Tramadol HCl (Ultram) 50 Mg Tablet, 50 MG PO TID Prescribed by: ROSEMARY SIMMONS on 11/11/21 1658 Review of Systems Review of Systems Constitutional: see HPI Respiratory: No Symptoms Reported Cardiovascular: No Symptoms Reported Gastrointestinal: Abdominal Pain, Constipated, Diarrhea Genitourinary: Burning, Frequency Musculoskeletal: no symptoms reported Skin: no symptoms reported All Other Systems Reviewed Negative Unless Noted: Yes Past Pjiozwt-Eymahi-Tldzly Hx Patient Social History Tobacco Use?: No Substance use?: No Alcohol Use?: No Pt feels they are or have been: No Immunizations Up To Date First/Initial COVID19 Vaccinat: DECLINED Second COVID19 Vaccination Steve: DECLINED Third COVID19 Vaccination Date: DECLINED Seasonal Allergies Seasonal Allergies: No Past Medical History Surgery/Hospitalization HX: BEATRIZ, TUBAL, HERNIA (MESH), HTN, MS, T2DM, COPD, OSTEOARTHRITIS Surgeries: Yes (HERNIA REPAIR, cyst removed from head) Abdominal, Tubal Ligation Respiratory: Yes Pneumonia, Chronic Bronchitis Currently Using CPAP: No Currently Using BIPAP: No Cardiac: Yes Hypertension Neurological: Yes Multiple Sclerosis 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 Disorders: 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 Genitourinary: Yes (MARIA M) Kidney Infection, UTI-Chronic Gastrointestinal: Yes Chronic Constipation Musculoskeletal: Yes (FLOATING DISK, BONES DETERIOATING ) Osteoporosis, Arthritis, Chronic Back Pain Endocrine: Yes Diabetes, Non-Insulin dep HEENT: No Cancer: No Psychosocial: No Integumentary: No Blood Disorders: No Family Medical History Cardiovascular disease 19 FATHER Diabetes mellitus 19 MOTHER G8 BROTHER FH: cancer 19 MOTHER Hypertension 19 MOTHER 19 FATHER G8 BROTHER Physical Exam Vital Signs Vital Signs - First Documented 08/21/22 10:28 Temp 36.4 Pulse 70 Resp 16 B/P (MAP) 187/103 (131) Pulse Ox 94 Capillary Refill : Less Than 3 Seconds Height/Weight/BMI Height: 5'6.00" Weight: 242lbs. 0.0oz. [id number]; 36.00 BMI Method:Stated General Appearance: WD/WN, no apparent distress, obese HEENT: PERRL/EOMI Respiratory: lungs clear, normal breath sounds, no respiratory distress, no accessory muscle use Cardiovascular: regular rate, rhythm Gastrointestinal: normal bowel sounds, soft, tenderness (RLQ and right flank - tender to palpation (mild) no involuntary guarding or rebound) Extremities: normal range of motion, normal inspection, pedal edema (mild) Neurologic/Psychiatric: no motor/sensory deficits, alert, normal mood/affect, oriented x 3 Skin: normal color, warm/dry Progress/Results/Core Measures Results/Orders Lab Results Laboratory Tests Test 08/21/22 10:40 Range/Units White Blood Count 7.2 4.3-11.0 10^3/uL Red Blood Count 4.98 3.80-5.11 10^6/uL Hemoglobin 14.3 11.5-16.0 g/dL Hematocrit 43 35-52 % Mean Corpuscular Volume 87 80-99 fL Mean Corpuscular Hemoglobin 29 25-34 pg Mean Corpuscular Hemoglobin Concent 33 32-36 g/dL Red Cell Distribution Width 14.0 10.0-14.5 % Platelet Count 160 130-400 10^3/uL Mean Platelet Volume 11.8 9.0-12.2 fL Immature Granulocyte % (Auto) 0 % Neutrophils (%) (Auto) 74 42-75 % Lymphocytes (%) (Auto) 19 12-44 % Monocytes (%) (Auto) 6 0-12 % Eosinophils (%) (Auto) 0 0-10 % Basophils (%) (Auto) 1 0-10 % Neutrophils # (Auto) 5.3 1.8-7.8 10^3/uL Lymphocytes # (Auto) 1.4 1.0-4.0 10^3/uL Monocytes # (Auto) 0.5 0.0-1.0 10^3/uL Eosinophils # (Auto) 0.0 0.0-0.3 10^3/uL Basophils # (Auto) 0.0 0.0-0.1 10^3/uL Immature Granulocyte # (Auto) 0.0 0.0-0.1 10^3/uL Sodium Level 141 135-145 MMOL/L Potassium Level 4.0 3.6-5.0 MMOL/L Chloride Level 108 H 98-107 MMOL/L Carbon Dioxide Level 19 L 21-32 MMOL/L Anion Gap 14 5-14 MMOL/L Blood Urea Nitrogen 12 7-18 MG/DL Creatinine 0.74 0.60-1.30 MG/DL Estimat Glomerular Filtration Rate 85 BUN/Creatinine Ratio 16 Glucose Level 96 70-105 MG/DL Calcium Level 9.3 8.5-10.1 MG/DL My Orders Orders - ZOHAIB RENTERIA MD Ekg Tracing (08/21/22 10:45) Ed Iv/Invasive Line Start (08/21/22 10:56) Cbc With Automated Diff (08/21/22 10:56) Basic Metabolic Panel (08/21/22 10:56) Urinalysis (08/21/22 10:56) Vital Signs/I&O 08/21/22 10:28 Temp 36.4 Pulse 70 Resp 16 B/P (MAP) 187/103 (131) Pulse Ox 94 Blood Pressure Mean: 131 Progress Progress Note : Time: 12:36 Progress Note NOtified by Marielle, RN the patient was desirous of leaving AMA. Explained to the patient that we were waiting on lab results (she had not provided a urine sample yet). Explained that a diagnosis could not be made without the full results. Patient and family member decided they did not want to wait. Eval today includes physical exam, CBC, BMP, UA. physical exam pertinent for obese female in NAD. normal HEENT. heart regular, lungs clear. Abdomen - obese with BS present. No significant tenderness elicited in the area of complaint. No involuntary guarding, no distension/palpable hernia. No overlying rashes. min LE edema. VSS. DDX based on h/p includes UTI/kidney stone, appendicitis. Labs returned with a normal appearing CBC. Chemistry remarkable only for mildly decreased CO2. Patient never did provide a urine sample. Discussion as above with patient. She left without workup completion. No etiology for patient's pain discovered. Initial ECG Impression Date: August 21, 2022 Initial ECG Impression Time: 10:43 Initial ECG Rate: 65 Initial ECG Rhythm: Normal Sinus Initial ECG Intervals DC 158 QRS 151 QTC 448 Comment RBBB; occ PVC; no ST elevation or depression Departure Impression Primary Impression: Abdominal pain Qualified Codes: R10.31 - Right lower quadrant pain Disposition: 07 AGAINST MEDICAL ADVICE Condition: Against Medical Advice Departure-Patient Inst. Referrals: KALA MCCARTY MD (PCP/Family) Primary Care Physician Copy Copies To 1: KALA MCCARTY MD, KATHRYN M MD August 21, 2022 11:02
[2022-08-21 11:03] LABS: BASOPHILS % (AUTO) 1 % (0-10); EOSINOPHILS % (AUTO) 0 % (0-10); HEMATOCRIT 43 % (35-52); HEMOGLOBIN 14.3 g/dL (11.5-16.0); LYMPHOCYTES # (AUTO) 1.4 10^3/uL (1.0-4.0); LYMPHOCYTES % (AUTO) 19 % (12-44); MEAN CORPUSCULAR HEMOGLOBIN 29 pg (25-34); MEAN CORPUSCULAR HGB CONC 33 g/dL (32-36); MEAN CORPUSCULAR VOLUME 87 fL (80-99); MEAN PLATELET VOLUME 11.8 fL (9.0-12.2); MONOCYTES # (AUTO) 0.5 10^3/uL (0.0-1.0); MONOCYTES % (AUTO) 6 % (0-12); NEUTROPHILS # (AUTO) 5.3 10^3/uL (1.8-7.8); NEUTROPHILS % (AUTO) 74 % (42-75); PLATELET COUNT 160 10^3/uL (130-400); WHITE BLOOD COUNT 7.2 10^3/uL (4.3-11.0)
[2022-08-21 11:09] LABS: CALCIUM 9.3 MG/DL (8.5-10.1)
[2022-08-21 11:13] LABS: CREATININE SERUM 0.74 MG/DL (0.60-1.30)
[2022-08-21 12:45] VITALS: BP 180/101
== END 2022-08-21 12:44 | disposition left against medical advice (07) ==
LOC: EDUNIT# 10:11 → ER 10:14
DX: R10.31 Right lower quadrant pain (principal); R79.81 Abnormal blood-gas level; Z87.19 Personal history of other diseases of the digestive system; Z98.890 Other specified postprocedural states; Z28.310 Unvaccinated for COVID-19
CPT/HCPCS: 36415; 80048; 85025

== ENCOUNTER 2023-02-03 16:03 | Emergency (ER) | payer MEDICARE, MEDICAID ==
[~2023-02-03] VITALS: Ht 170.1 cm; Wt 115.6 kg
[~2023-02-03 16:03] MED LIST changes: -LOSA100T57 PO; +LOSA100T58 PO; -MECL-149 PO; +MECL-291 PO
--- NOTE | 2023-02-03 16:28 | ED Lower Extremity ---
General Chief Complaint: Lower Extremity Stated Complaint: LT FOOT INJ Nursing Triage Note: PT ARRIVED BY POV WITH CC OF LEFT FOOT PAIN. PT STATES THAT SHE NOTICED PAIN 2 DAYS AGO ON THE BOTTOM OF HER FOOT. PT REPORTS THAT SHE IS UNSURE IF FOREIGN BODY IS PRESENT. Source: patient Exam Limitations: no limitations History of Present Illness Date Seen by Provider: Feb 03, 2023 Time Seen by Provider: 16:06 Initial Comments 73-year-old female with no pertinent past medical history coming in due to left foot pain. Started a couple days ago with a very small spot on the bottom of her left foot. She was wondering if maybe she stepped on something, but she had her regular shoe on when it occurred. She scheduled an appointment with the first aid trainer in 7 days. She was trying to decide if she should go to the urgent care or the ER, but the urgent care weight was 45 minutes which she thought was too long. Denies any fever, neuropathy, weakness, numbness, bleeding, or any other concerns. She does not take any blood thinners. Allergies and Home Medications Allergies Coded Allergies: hydrocortisone (Verified Allergy, Unknown, 04/21/16) oxycodone (Verified Allergy, Unknown, 09/16/17) ether (Verified Adverse Reaction, Unknown, 09/10/16) Patient Home Medication List Home Medication List Reviewed: Yes Acetaminophen with Codeine (Tylenol with Codeine #3 Tablet) 1 Each Tablet, 1 EACH PO Q4H PRN for COUGH Prescribed by: HERMNIIO SU on 03/11/19 1716 Azithromycin (Azithromycin) 250 Mg Tablet, 250 MG PO DAILY, (Reported) Entered as Reported by: SELENE BLOUNT on 08/10/18 1038 Cefuroxime Axetil (Cefuroxime) 250 Mg Tablet, 250 MG PO BID Prescribed by: HERMINIO SU on 03/11/19 1716 Cephalexin (Cephalexin) 500 Mg Tablet, 500 MG PO TID Prescribed by: HERMINIO SU on 11/18/20 215 Esomeprazole Magnesium (Nexium) 40 Mg Cap, 40 MG PO DAILY, (Reported) Entered as Reported by: SELENE BLOUNT on 08/10/18 1038 Fluconazole (Diflucan) 200 Mg Tablet, 200 MG PO ONCE Prescribed by: HIREN MUIR on 07/20/21 1508 Furosemide (Furosemide) 20 Mg Tablet, 20 MG PO DAILY, (Reported) Entered as Reported by: HELGA MYRICK on 09/16/17 1438 Ibuprofen (Ibuprofen) 800 Mg Tablet, 800 MG PO q6 PRN for PAIN-MILD, (Reported) Entered as Reported by: HELGA MYRICK on 09/16/17 1438 Losartan Potassium (Losartan Potassium) 100 Mg Tablet, 100 MG PO DAILY, (Reported) Entered as Reported by: SELENE BLOUNT on 08/10/18 1038 Meclizine HCl (Meclizine HCl) 25 Mg Tablet, 25 MG PO TID PRN for DIZZINESS Prescribed by: HERMINIO SU on 04/26/21 1540 Metoprolol Tartrate (Metoprolol Tartrate) 100 Mg Tablet, 100 MG PO BID, (Reported) Entered as Reported by: SELENE BLOUNT on 08/10/18 1038 Prednisone (Prednisone) 20 Mg Tab, 20 MG PO BID, (Reported) Entered as Reported by: SELENE BLOUNT on 08/10/18 1038 Tramadol HCl (Ultram) 50 Mg Tablet, 50 MG PO TID Prescribed by: ROSEMARY SIMMONS on 11/11/21 1658 Review of Systems Constitutional: No fever EENTM: no symptoms reported Respiratory: no symptoms reported Cardiovascular: no symptoms reported Gastrointestinal: no symptoms reported Genitourinary: no symptoms reported Musculoskeletal: no symptoms reported Skin: no symptoms reported Psychiatric/Neurological: No Symptoms Reported Past Wpftpoj-Taiodn-Itgtas Hx Patient Social History Tobacco Use?: No Substance use?: No Alcohol Use?: No Immunizations Up To Date First/Initial COVID19 Vaccinat: DECLINED Second COVID19 Vaccination Steve: DECLINED Third COVID19 Vaccination Date: DECLINED Seasonal Allergies Seasonal Allergies: No Past Medical History Surgery/Hospitalization HX: BEATRIZ, TUBAL, HERNIA (MESH), HTN, MS, T2DM, COPD, OSTEOARTHRITIS Surgeries: Yes (HERNIA REPAIR, cyst removed from head) Abdominal, Tubal Ligation Respiratory: Yes Pneumonia, Chronic Bronchitis Currently Using CPAP: No Currently Using BIPAP: No Cardiac: Yes Hypertension Neurological: Yes Multiple Sclerosis 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 Disorders: No [employer] History: Menopausal Genitourinary: Yes (MARIA M) Kidney Infection, UTI-Chronic Gastrointestinal: Yes Chronic Constipation Musculoskeletal: Yes (FLOATING DISK, BONES DETERIOATING ) Osteoporosis, Arthritis, Chronic Back Pain Endocrine: Yes Diabetes, Non-Insulin dep HEENT: No Cancer: No Psychosocial: No Integumentary: No Blood Disorders: No Family Medical History Cardiovascular disease 19 FATHER Diabetes mellitus 19 MOTHER G8 BROTHER FH: cancer 19 MOTHER Hypertension 19 MOTHER 19 FATHER G8 BROTHER Physical Exam Vital Signs Vital Signs - First Documented 02/03/23 16:13 Temp 36.6 Pulse 76 B/P (MAP) 141/106 (118) Pulse Ox 96 O2 Delivery Room Air Capillary Refill : Height, Weight, BMI Height: 5'6.00" Weight: 242lbs. 0.0oz. [id number]; 39.00 BMI Method:Stated General Appearance: WD/WN, no apparent distress Cardiovascular: regular rate, rhythm Respiratory: no respiratory distress Gastrointestinal: No distended Legs: bilateral leg non-tender, bilateral leg normal inspection, bilateral leg normal range of motion, bilateral leg no evidence of injury Knees: bilateral knee non-tender, bilateral knee normal inspection, bilateral knee normal range of motion, bilateral knee no evidence of injury Ankles: bilateral ankle non-tender, bilateral ankle normal inspection, bilateral ankle normal range of motion, bilateral ankle no evidence of injury Feet: bilateral foot normal range of motion, bilateral foot no evidence of injury; left foot other (Left plantar region with what appears to be a small papular lesion roughly 2 mm in diameter with no redness or purulent drainage) Neurologic/Tendon: normal sensation, normal motor functions, normal tendon functions Neurologic/Psychiatric: no motor/sensory deficits, alert, normal mood/affect Skin: normal color, warm/dry Progress/Results/Core Measures Results/Orders Vital Signs/I&O 02/03/23 16:13 Temp 36.6 Pulse 76 B/P (MAP) 141/106 (118) Pulse Ox 96 O2 Delivery Room Air Blood Pressure Mean: 118 Progress Progress Note : Progress Note 73-year-old female with above history coming in due to a small punctate lesion on the bottom of her left foot for the past couple days it is painful. ABCs were intact and vitals were stable on presentation. Physical exam with a papular lesion that looks like likely the beginning of a plantar wart. I did take some forceps and lifted up somewhat to see if there was a foreign body underneath. I was able to remove it with the top portion of it. She states her pain is better. I did an ultrasound and I do not see any obvious foreign body in her foot, and now she says she is asymptomatic. I will recommend continued follow-up with the first aid trainer. There is no bleeding, the portion that was removed looked to be purely callus. Departure Impression Primary Impression: Plantar wart of left foot Disposition: HOME, SELF-CARE Condition: Stable Departure-Patient Inst. Decision time for Depature: 16:30 Referrals: SELF,KALA SMITH (PCP/Family) Primary Care Physician Patient Instructions: Warts on the Skin Add. Discharge Instructions: This looks most similar to an early plantar wart. We did remove just a little bit of it to see if there is anything underneath, and we do not see any foreign body at this time. We do think it is still a good idea to follow-up with a first aid trainer, Dr. Kiran. Take Tylenol as needed for pain. You can continue to do the Epsom salt soaks at home. TRUDI LEBLANC MD Feb 03, 2023 16:28
[2023-02-03 16:39] VITALS: BP 158/91
== END 2023-02-03 16:39 | disposition home or self-care (01) ==
LOC: EDUNIT# 16:03 → ER 16:07
DX: B07.0 Plantar wart (principal)
CPT/HCPCS: 99281